=== PATIENT | male | born 1960 | race Caucasian/White ===

== ENCOUNTER → 2018-03-10 09:54 | Outpatient (CLI) | payer MEDICARE, MEDICAID, SELFPAY ==
--- NOTE | 2018-03-10 09:57 | XR_ITS ---
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 Chronic dysplastic erosive changes MRI loss are seen at the superior base of right humeral head due to this process The Y view nicely demonstrates the anterior displacement of the humeral head relative to the glenoid as well. Likely been some erosive changes at the anterior glenoid based on this lateral view. Mild residual deformity distal clavicle from previous 2012 fracture here. AC joint intact apex right lung clear. Suspect old healed bilateral right second rib fracture. Equivocal old lateral third rib fracture just inferior to this. IMPRESSION: . Chronic anterior dislocation of humeral head. Stable since 02/19/2018 Associated deformity humeral head, with chronic dysplastic, erosive changes at the superior base of humeral head, & greater tuberosity region again seen.
== END ==
PROVIDERS: PCP Family Medicine; Visit Provider Orthopaedic Surgery
DX: M24.411 Recurrent dislocation, right shoulder (principal)
CPT/HCPCS: 73030

== ENCOUNTER 2018-09-21 11:55 | Inpatient (IN) ==
--- NOTE | 2018-09-21 12:17 | Emergency Department Note ---
ED Disposition Clinical Impression: Hypotension, Fever Disposition: Admitted as Observation Condition on Discharge: Good - Critical Care Critical Care Time: Yes Attestation: On 09/21/18, the high probability of a clinically significant, sudden or life threatening deterioration of the following system(s) required my full and direct attention, intervention and personal management. The time I documented below is in addition to time spent performing reported procedures but includes the following listed in this critical care notation. Total Critical Care Time: 40 Vital system(s) involved:: Circulatory Failure My critical care processes included: Assessment & monitoring of V/S, Initial and Re-exams, Data Review/Interpretation, Coordinating Care, Medication Orders and management, Documentation Medical Decision Making - Mario Inquiry Pt receiving controlled substance: No Vital Signs: 09/21/18 12:10 09/21/18 12:19 09/21/18 13:51 Temperature 99.0 F 99.0 F 98.5 F Temperature Source Oral Oral Oral Pulse Rate Pulse Rate [Right Apical] 80 77 79 Respiratory Rate 18 15 18 Blood Pressure Blood Pressure [Left Arm] 81/47 L 87/57 L 102/55 L Blood Pressure Mean [Left Arm] 58 67 70 Blood Pressure Source Blood Pressure Source [Left Arm] Automatic Cuff Automatic Cuff Automatic Cuff Blood Pressure Position Blood Pressure Position [Left Arm] Supine Supine Sitting 02 Sat by Pulse Oximetry 98 96 Oxygen Delivery Method Nasal Cannula Nasal Cannula Nasal Cannula Oxygen Flow Rate (LPM) 2 2 2 09/21/18 14:45 09/21/18 15:39 09/21/18 16:00 Temperature 99.3 F Temperature Source Rectal Pulse Rate Pulse Rate [Right Apical] 81 85 Respiratory Rate Blood Pressure Blood Pressure [Left Arm] 95/37 L 120/63 Blood Pressure Mean [Left Arm] 56 82 Blood Pressure Source Blood Pressure Source [Left Arm] Automatic Cuff Automatic Cuff Blood Pressure Position Blood Pressure Position [Left Arm] Sitting Sitting 02 Sat by Pulse Oximetry 91 L 96 Oxygen Delivery Method Oxygen Flow Rate (LPM) 09/21/18 17:38 09/21/18 17:54 Temperature 99.0 F Temperature Source Oral Pulse Rate 60 Pulse Rate [Right Apical] 100 H Respiratory Rate 20 Blood Pressure 120/66 Blood Pressure [Left Arm] 104/74 L Blood Pressure Mean [Left Arm] 84 Blood Pressure Source Automatic Cuff Blood Pressure Source [Left Arm] Blood Pressure Position Supine Blood Pressure Position [Left Arm] 02 Sat by Pulse Oximetry 97 Oxygen Delivery Method Room Air Oxygen Flow Rate (LPM) - Lab Data Lab Results 09/21/18 12:08: WBC 3.8 L, RBC 3.79 L, Hgb 9.8 L, Hct 31.0 L, MCV 81.9, MCH 26.0 L, MCHC 31.7 L, RDW 15.8, Plt Count 209, MPV 7.9, Neut % (Auto) 55.3, Lymph % (Auto) 25.4, [place] % (Auto) 17.3 H, Eos % (Auto) 1.4, Baso % (Auto) 0.7, Neut # (Auto) 2.1, Lymph # (Auto) 1.0, [place] # (Auto) 0.7, Eos # (Auto) 0.1, Baso # (Auto) 0.0 09/21/18 12:08: Sodium 141, Potassium 4.0, Chloride 103, Carbon Dioxide 31, Anion Gap 11.0, BUN 15, Creatinine 1.54 H, Estimated Creat Clear 87, Estimated GFR 47 L, Est GFR ( Amer) 57 L, Glucose 96, Calcium 8.4 L, Total Bilirubin 0.2, AST 29, ALT 19, Alkaline Phosphatase 82, Troponin I < 0.02, Total Protein 6.6, Albumin 2.1 L, Globulin 4.5 H, Albumin/Globulin Ratio 0.5 L 09/21/18 12:08: Lactate 1.9 09/21/18 12:08: B-Natriuretic Peptide 117 H 09/21/18 15:20: Stool Occult Blood Negative 09/21/18 15:39: Urine Color Yellow, Urine Appearance Clear, Urine pH 5.5, Ur Specific [place] 1.025, Urine Protein Negative, Urine Glucose (UA) Negative, Urine Ketones Negative, Urine Blood Negative, Urine Nitrate Negative, Urine Bilirubin Negative, Urine Urobilinogen 0.2, Ur Leukocyte Esterase Negative, Urine RBC None, Urine WBC Occasional, Ur Squamous Epith Cells Occasional, Urine Bacteria Trace 09/21/18 16:11: Influenza Type A Ag Negative, Influenza Type B Ag Negative Result diagrams: 09/21/18 12:08 09/21/18 12:08 Orders (Tests/Meds): ED MEDICATIONS Generic Name Dose Route Start Last Admin Trade Name Freq PRN Reason Stop Dose Admin Acetaminophen 650 mg 09/21/18 17:33 Acetaminophen 325mg Tab PO 10/21/18 17:32 Q4HP PRN As Needed for Fever or Pain Fenofibrate 134 mg 09/21/18 21:00 Tricor 134mg PO 10/21/18 20:59 HS JEMMA Sodium Chloride 1,000 mls @ 125 mls/hr 09/21/18 17:33 09/21/18 19:40 Sod Chlor 0.9% 1000ml Bag IV 10/21/18 17:32 125 mls/hr .Q8H JEMMA Administration Insulin Human Lispro 0 unit 09/21/18 21:00 Humalog 100 Units/Ml 3ml Vial (Ssi) SQ 10/21/18 20:59 ACHS JEMMA Protocol Non-Formulary Medication 40 mg 09/21/18 21:00 Lovastatin [Lovastatin] PO 10/21/18 20:59 HS JEMMA Non-Formulary Medication 30 mg 09/22/18 09:00 Paroxetine Hcl [Paroxetine Hcl] PO 10/22/18 08:59 DAILY JEMMA Non-Formulary Medication 2 mg 09/21/18 21:00 Risperidone [Risperidone] PO 10/21/18 20:59 BID JEMMA Sodium Chloride 10 ml 09/21/18 17:33 Saline Flush 10ml Syringe IV 10/21/18 17:32 NEEDED PRN Maintain IV Site Discontinued Medications Generic Name Dose Route Start Last Admin Trade Name Freq PRN Reason Stop Dose Admin Albuterol/Ipratropium 3 ml 09/21/18 12:23 09/21/18 12:35 Duoneb 3ml Neb IH 09/21/18 12:24 3 ml ONCE ONE Administration Sodium Chloride 1,000 mls @ 999 mls/hr 09/21/18 12:30 09/21/18 12:35 Sod Chlor 0.9% 1000ml Bag IV 09/21/18 13:30 999 mls/hr .Q1H1M JEMMA Administration Methylprednisolone Sodium Succinate 125 mg 09/21/18 12:24 09/21/18 12:35 Solu-Medrol 125mg/2ml Vial IV 09/21/18 12:25 125 mg ONCE ONE Administration ORDERS Category Date Time Status Blood Culture Stat Micro 09/21/18 12:08 Received - ECG Data Tracing #2 EKG interpreted by Rod Hoffmann MD: Rhythm: sinus Rate: 99 [place]: Left Severe motion artifact in leads V4, V5, and V6, these leads are uninterpretable. EKG #2 interpreted by Rod Hoffmann MD: Rhythm: sinus Rate: 82 [place]: Left Ectopy: none Conduction: normal ST Segment Changes: none T Wave Changes: none Q Waves: Inferior Poor R wave progression Low voltage QRS - Physician Consults Physician Consulted: Alba Time: 16:58 Reason -: Admission Comment/Response: Agrees to admit the patient to the hospital. We discussed the patient's clinical information, including history, exam, laboratory and radiology results and ED course. Per hospital procedure, I will write temporary bridge inpatient orders on the patient. Specific orders requested by the admitting physician: Continue IV fluids, repeat chest x-ray in the morning. No antibiotics. General Adult HPI - General Chief complaint: Altered Mental Status Stated complaint: altered mental status Time Seen by Provider: 09/21/18 12:16 Mode of Arrival: EMS Limitations: Altered Mental Status Description of Symptoms (Recalled from ER Triage Doc. by RN): PT arrived to the ED from senior care with c/o altered mental status changes and SOA. PT has a hx of developmental delays but this is worse than baseline as stated by senior living RN. - History of Present Illness HPI narrative: Brought in by ambulance from the senior care for change in behavior and "possible infection". Patient is unable to provide any significant additional history due to his baseline mental condition. States he has back pain, no other complaints voiced. Blood pressure noted to be 82/55 prior to transfer. Temperature 101.9 axillary. Review of senior care records indicates that the patient recently had UTI, E. coli, treated on 09/02/18, Cipro for 10 days. Had a hemoglobin of 8.7, noted to be chronic stable anemia. - Related Data Home Medications Medication Instructions Recorded Confirmed Acetaminophen [Acetaminophen Extra 1,000 mg PO QID 02/19/18 09/21/18 Strength] Carvedilol [Carvedilol 12.5mg Tab] 12.5 mg PO DAILY 02/19/18 09/21/18 Fenofibrate,Micronized [Tricor 134 mg PO HS 02/19/18 09/21/18 145mg] Furosemide [Furosemide 40MG tAB] 40 mg PO DAILY 02/19/18 09/21/18 L.acidoph,Paracasei, B.lactis 1 each PO DAILY 02/19/18 09/21/18 [Probiotic] Lactulose [Lactulose 10gm/15ml 10 gm PO DAILY PRN 02/19/18 09/21/18 Oral Soln] Lisinopril [Lisinopril 5mg Tablet] 5 mg PO DAILY 02/19/18 09/21/18 Loratadine [Claritin] 10 mg PO DAILY 02/19/18 09/21/18 Lovastatin 40 mg PO HS 02/19/18 09/21/18 Metformin HCl [Fortamet] 1,000 mg PO BID 02/19/18 09/21/18 Methylcellulose [Fiber] 500 mg PO DAILY 02/19/18 09/21/18 Multivitamin with Minerals [Hair, 1 each PO DAILY 02/19/18 09/21/18 Skin and Nails] [place]-3 Fatty Acids [Fish Oil 1,000 mg PO DAILY 02/19/18 09/21/18 Concentrate] PARoxetine HCl [Paroxetine HCl] 30 mg PO DAILY 02/19/18 09/21/18 Pioglitazone HCl 15 mg PO DAILY 02/19/18 09/21/18 Potassium Chloride [Klor-Con 10 meq PO DAILY 02/19/18 09/21/18 Sprinkle 10mEq] risperiDONE [Risperidone] 2 mg PO BID 02/19/18 09/21/18 Allergies Allergy/AdvReac Type Severity Reaction Status Date / Time NO KNOWN DRUG ALLERGIES Allergy Unknown Uncoded 03/10/18 10:10 [facility] History - Hepatitis A Screen Drug use history?: No High risk sexual behaviors?: No History of sexually transmitted infection?: No Currently employed?: No Childcare worker?: No Do you have indoor plumbing?: Yes Do you have electricity?: Yes Attestation statement:: This patient has been screened for Hepatitis A risk factors. I have reviewed the patient's past medical history: Yes Medical History: Reports:: Diabetes Mellitus Type 2 Denies:: Diabetes Mellitus Type 1 - Social History Smoking Status: Unknown if ever smoked Tobacco Type: cigars Alcohol Intake: never Occupational Status: disabled - Psychiatric History Expresses thoughts of harming self/others: None Suicide Plan Description: No Plan ROS Obtained: Yes unobtainable due to mental condition Physical Exam - General General appearance: alert Comment: Eyes open, staring down at the floor. Does not change his gaze when spoken to. Frequent cough. - Head Head exam: atraumatic - Eye Eye exam: Present: normal appearance, PERRL, EOMI. Absent: scleral icterus - ENT ENT exam: Present: mucous membranes moist - Neck Neck exam: Present: normal inspection, trachea midline - Chest Chest inspection: Present: normal inspection, symmetric chest wall rise - Respiratory Respiratory exam: Present: wheezes, other (Bilateral rhonchi) - Cardiovascular Cardiovascular exam: Present: regular rate, normal rhythm, normal heart sounds - Abdominal Exam Abdominal exam: Present: soft. Absent: distention, tenderness - Extremities Exam Extremities exam: Present: normal inspection. Absent: pedal edema, calf tenderness - Neurological Exam Neurological exam: Present: alert - Psychiatric Psychiatric exam: Present: flat affect - Skin Skin exam: Present: warm, dry, pallor
[2018-09-21 12:52] LABS: Basophils % 0.7 % (0.1-2.0); Eosinophils # 0.1 K/mm3 (0.0-0.4); Eosinophils % 1.4 % (0.1-12.0); Hemoglobin 9.8 g/dL (14.1-18.0); Lymphocytes % 25.4 % (10-50); Mean Corpuscular HGB Conc 31.7 g/dL (31.8-35.4); Mean Corpuscular Volume 81.9 fl (80-94); Mean Platelet Volume 7.9 fl (7.4-10.4); Monocytes # 0.7 K/mm3 (0.1-1.0); Monocytes % 17.3 % (1.7-9.3); Neutrophils # 2.1 K/mm3 (1.8-7.8); Neutrophils % 55.3 % (37.0-80.0); Platelet Count 209 K/mm3 (142-424); Red Blood Count 3.79 M/mm3 (4.60-6.20); Red Cell Distribution Width 15.8 % (11.5-17.5); White Blood Count 3.8 K/mm3 (4.8-10.8)
[2018-09-21 13:07] LABS: Alanine Aminotransferase 19 U/L (12-78); Albumin Level 2.1 gm/dL (3.4-5.0); Albumin/Globulin Ratio 0.5 (1.1-1.8); Alkaline Phosphatase 82 U/L (46-116); Aspartate Amino Transferase 29 U/L (15-37); Bilirubin,Total 0.2 mg/dL (0.2-1.0); Blood Urea Nitrogen 15 mg/dL (7-18); Calcium 8.4 mg/dL (8.5-10.1); Carbon Dioxide 31 mmol/L (21.0-32.0); Chloride 103 mmol/L (98-107); Globulin 4.5 gm/dl (1.3-3.2); Glucose 96 mg/dL (74-106); Sodium 141 mmol/L (136-145); Total Protein,Serum 6.6 gm/dL (6.4-8.2)
[2018-09-21 15:50] LABS: Microscopic, Urine URINE MICROSCOPIC (MICROSCOPIC)
[2018-09-21 15:54] LABS: Appearance,Urine CLEAR (Clear); Bilirubin,Urine Negative (Negative); Blood, Urine Negative (Negative); Color,Urine YELLOW (Yellow); Glucose,Urine (UA) Negative (Negative); Ketones,Urine Negative (Negative); Leukocyte Esterase,Urine Negative (Negative); PH,Urine 5.5 (5.0-8.5); Protein,Urine Negative (Negative); Specific Gravity, Urine 1.025 (1.005-1.030); Urobilinogen,Urine 0.2 EU/dl (0.2)
[2018-09-21 16:23] LABS: Bacteria,Urine Trace /lpf; Squamous Epithelial Cell,Urine Occasional #/hpf (0-5); WBC,Urine Occasional #/hpf (0-3)
--- NOTE | 2018-09-22 07:35 | Pharmacy Consult Notes ---
[facility] Pharmacy VTE Monitoring - Patient Demographics Admission date: 09/21/18 Report Date: 09/22/18 Time: 07:35 Allergies/Adverse Reactions: Patient Allergies NO KNOWN DRUG ALLERGIES Allergy (Unknown, Uncoded 03/10/18 10:10) Height: 1.83 m Weight: 104.893 kg Patient Problems: Current Active Problems Hypotension (Acute) Fever (Acute) - VTE Risk Labs: VTE Related Lab Results Hgb 9.8 g/dL (14.1-18.0) L 09/21/18 12:08 Hct 31.0 % (42.0-52.0) L 09/21/18 12:08 Plt Count 209 K/mm3 (142-424) 09/21/18 12:08 BUN 15 mg/dL (7-18) 09/21/18 12:08 Creatinine 1.54 mg/dL (0.70-1.30) H 09/21/18 12:08 Estimated Creat Clear 87 mL/min (50-200) 09/21/18 12:08 Was VTE Risk Assessment Performed: Yes VTE Score: 3 VTE Risk Level: Low Risk - Prophylaxis VTE Prophylaxis Ordered?: Yes Types of VTE Prophylaxis: TEDS Knee High Location of Applied Device: Bilateral Lower Extremeties - VTE Diagnosis Confirmed Treatment or plan recommended: Continue Current Treatment
[2018-09-22 07:50] LABS: Basophils % 0.2 % (0.1-2.0); Eosinophils % 0.1 % (0.1-12.0); Hematocrit 30.6 % (42.0-52.0); Hemoglobin 9.7 g/dL (14.1-18.0); Lymphocytes # 1.1 K/mm3 (0.7-4.5); Lymphocytes % 21.2 % (10-50); Mean Corpuscular HGB Conc 31.5 g/dL (31.8-35.4); Mean Corpuscular Hemoglobin 25.7 pg (27.0-31.2); Mean Corpuscular Volume 81.4 fl (80-94); Mean Platelet Volume 7.7 fl (7.4-10.4); Monocytes # 0.5 K/mm3 (0.1-1.0); Monocytes % 9.9 % (1.7-9.3); Neutrophils # 3.6 K/mm3 (1.8-7.8); Neutrophils % 68.6 % (37.0-80.0); Platelet Count 226 K/mm3 (142-424); Red Blood Count 3.76 M/mm3 (4.60-6.20); Red Cell Distribution Width 15.9 % (11.5-17.5); White Blood Count 5.2 K/mm3 (4.8-10.8)
--- NOTE | 2018-09-22 09:20 | History & Physical Report ---
*Admission Date: 09/21/18 <Anitra Jones 09/22/18 09:41> *Chief complaint: fever <Anitra Jones 09/22/18 09:41> *History of present illness: Mr. Umana is a 57-year-old white male resident [facility] he was sent to [facility] emergency room for evaluation due to a fever and behaviors. Patient has a history of developmental disorder, type 2 diabetes mellitus, hyperlipidemia, major depression disorder, hypertension, convulsions, schizophrenic disorder and anxiety disorder. Patient was also noted to have a low blood pressure at 82/55 in the prison. With arrival in the emergency room patient's blood pressure remained low he was given IV fluids. And then admitted for further evaluation and treatment. With evaluation this morning patient states he has had a cough and been short of breath. He denies pain. Patient mostly answers questions with yes and no. <Anitra Jones 09/22/18 09:41> [facility] History Medical History: Reports:: Diabetes Mellitus Type 2, Hyperlipidemia, Hypertension Denies:: Diabetes Mellitus Type 1 <Anitra Jones 09/22/18 09:41> *Have you ever received a pneumonia vaccine?: Yes <Anitra Jones 09/22/18 09:41> *Have you received a flu vaccine this season?: Yes <Anitra Jones 09/22/18 09:41> Other Medical History: Reports: Anemia <Anitra Jones 09/22/18 09:41> Other Surgeries: Yes: No Previous Surgery <Anitra Jones 09/22/18 09:41> - *Social History Smoking Status: Unknown if ever smoked <Anitra Jones 09/22/18 09:41> Tobacco Type: cigars <Anitra Jones 09/22/18 09:41> Alcohol Intake: never <Anitra Jones 09/22/18 09:41> *Occupational Status:: disabled <Anitra Jones 09/22/18 09:41> Housing: prison <Anitra Jones 09/22/18 09:41> *Travel in the last 8 weeks: None <Anitra Jones 09/22/18 09:41> - Psychiatric History Expresses thoughts of harming self/others: None <Anitra Jones Desirae 09/22/18 0 9:41> Suicide Plan Description: No Plan <Jones,Anitra Desirae 09/22/18 09:41> Family Hx:: Unable to obtain <Jones,Anitra - 09/22/18 09:41> Review of Systems - Constitutional Reports weakness, Denies headache(s) <Jones,Anitra 09/22/18 09:41> - ENT Reports sore throat, Denies ear pain <KarenAnitra 09/22/18 09:41> - *Cardiovascular Reports shortness of breath, Denies chest pain <Jones,Anitra 09/22/18 09:41> - *Respiratory Reports cough, Reports shortness of breath <Jones,Anitra 09/22/18 09:41> - *Gastrointestinal Denies nausea, Denies vomiting <KarenAnitra 09/22/18 09:41> - *Genitourinary Denies difficulty urinating <KarenAnitra 09/22/18 09:41> - *Musculoskeletal Comments: Per patient: Ambulates in a wheelchair. <Jones,Anitra - 09/22/18 09:41> - *Neurologic Reports behavioral changes, Reports confusion <KarenAnitra 09/22/18 09:41> - Psychiatric Reports anxiety, Reports behavioral changes, Reports confusion, Reports depression <KarenAnitra - 09/22/18 09:41> Meds Home Medications Medication Instructions Recorded Confirmed Type Acetaminophen [Acetaminophen Extra 1,000 mg PO QID 02/19/18 09/21/18 History Strength] Carvedilol [Carvedilol 12.5mg Tab] 12.5 mg PO BID 02/19/18 09/21/18 History Fenofibrate,Micronized [Tricor 134 mg PO HS 02/19/18 09/21/18 History 145mg] Furosemide [Furosemide 40MG tAB] 40 mg PO DAILY 02/19/18 09/21/18 History L.acidoph,Paracasei, B.lactis 1 each PO DAILY 02/19/18 09/21/18 History [Probiotic] Lactulose [Lactulose 10gm/15ml 10 gm PO DAILY PRN 02/19/18 09/21/18 History Oral Soln] Lisinopril [Lisinopril 5mg Tablet] 5 mg PO BID 02/19/18 09/21/18 History Loratadine [Claritin] 10 mg PO DAILY 02/19/18 09/21/18 History Lovastatin 40 mg PO HS 02/19/18 09/21/18 History Metformin HCl [Fortamet] 1,000 mg PO BID 02/19/18 09/21/18 History Methylcellulose [Fiber] 500 mg PO DAILY 02/19/18 09/21/18 History Multivitamin with Minerals [Hair, 1 each PO DAILY 02/19/18 09/21/18 History Skin and Nails] [place]-3 Fatty Acids [Fish Oil 1,000 mg PO BID 02/19/18 09/21/18 History Concentrate] PARoxetine HCl [Paroxetine HCl] 30 mg PO DAILY 02/19/18 09/21/18 History Pioglitazone HCl 15 mg PO DAILY 02/19/18 09/21/18 History Potassium Chloride [Klor-Con 10 meq PO DAILY 02/19/18 09/21/18 History Sprinkle 10mEq] risperiDONE [Risperidone] 2 mg PO BID 02/19/18 09/21/18 History Chlorhexidine Gluconate [Peridex] 15 ml MM BID 09/21/18 09/21/18 History Divalproex Sodium [Depakote 125 mg PO TID 09/21/18 09/21/18 History Sprinkle 125mg capsule] cephALEXin [Keflex 500mg Cap] 500 mg PO TID 09/21/18 09/21/18 History diazePAM [Valium 2mg tablet] 2 mg PO BID 09/21/18 09/21/18 History <Chris Willis - 09/22/18 10:34> Allergies Allergy/AdvReac Type Severity Reaction Status Date / Time No Known Allergies Allergy Unverified 09/22/18 08:13 <Chris Willis - 09/22/18 10:34> Exam Vital signs and Labs for Last 24 Hours: Temp Pulse Resp BP Pulse Ox 99.3 F 90 18 150/90 H 96 09/22/18 08:00 09/22/18 08:00 09/22/18 08:00 09/22/18 08:00 09/22/18 08:00 Laboratory Results - last 24 hr 09/21/18 12:08: WBC 3.8 L, RBC 3.79 L, Hgb 9.8 L, Hct 31.0 L, MCV 81.9, MCH 26.0 L, MCHC 31.7 L, RDW 15.8, Plt Count 209, MPV 7.9, Neut % (Auto) 55.3, Lymph % (Auto) 25.4, [place] % (Auto) 17.3 H, Eos % (Auto) 1.4, Baso % (Auto) 0.7, Neut # (Auto) 2.1, Lymph # (Auto) 1.0, [place] # (Auto) 0.7, Eos # (Auto) 0.1, Baso # (Auto) 0.0 09/21/18 12:08: Sodium 141, Potassium 4.0, Chloride 103, Carbon Dioxide 31, Anion Gap 11.0, BUN 15, Creatinine 1.54 H, Estimated Creat Clear 87, Estimated GFR 47 L, Est GFR ( Amer) 57 L, Glucose 96, Calcium 8.4 L, Total Bilirubin 0.2, AST 29, ALT 19, Alkaline Phosphatase 82, Troponin I < 0.02, Total Protein 6.6, Albumin 2.1 L, Globulin 4.5 H, Albumin/Globulin Ratio 0.5 L 09/21/18 12:08: Lactate 1.9 09/21/18 12:08: B-Natriuretic Peptide 117 H 09/21/18 15:20: Stool Occult Blood Negative 09/21/18 15:39: Urine Color Yellow, Urine Appearance Clear, Urine pH 5.5, Ur Specific [place] 1.025, Urine Protein Negative, Urine Glucose (UA) Negative, Urine Ketones Negative, Urine Blood Negative, Urine Nitrate Negative, Urine Bilirubin Negative, Urine Urobilinogen 0.2, Ur Leukocyte Esterase Negative, Urine RBC None, Urine WBC Occasional, Ur Squamous Epith Cells Occasional, Urine Bacteria Trace 09/21/18 16:11: Influenza Type A Ag Negative, Influenza Type B Ag Negative 09/21/18 20:20: POC Glucose 178 H 09/22/18 05:10: POC Glucose 92 09/22/18 07:38: WBC 5.2 D, RBC 3.76 L, Hgb 9.7 L, Hct 30.6 L, MCV 81.4, MCH 25.7 L, MCHC 31.5 L, RDW 15.9, Plt Count 226, MPV 7.7, Neut % (Auto) 68.6, Lymph % (Auto) 21.2, [place] % (Auto) 9.9 H, Eos % (Auto) 0.1, Baso % (Auto) 0.2, Neut # (Auto) 3.6, Lymph # (Auto) 1.1, [place] # (Auto) 0.5, Eos # (Auto) 0.0, Baso # (Auto) 0.0 <Chris Willis - 09/22/18 10:34> Temp Pulse Resp BP Pulse Ox 99.3 F 90 18 150/90 H 96 09/22/18 08:00 09/22/18 08:00 09/22/18 08:00 09/22/18 08:00 09/22/18 08:00 Laboratory Results - last 24 hr 09/21/18 12:08: WBC 3.8 L, RBC 3.79 L, Hgb 9.8 L, Hct 31.0 L, MCV 81.9, MCH 26.0 L, MCHC 31.7 L, RDW 15.8, Plt Count 209, MPV 7.9, Neut % (Auto) 55.3, Lymph % (Auto) 25.4, [place] % (Auto) 17.3 H, Eos % (Auto) 1.4, Baso % (Auto) 0.7, Neut # (Auto) 2.1, Lymph # (Auto) 1.0, [place] # (Auto) 0.7, Eos # (Auto) 0.1, Baso # (Auto) 0.0 09/21/18 12:08: Sodium 141, Potassium 4.0, Chloride 103, Carbon Dioxide 31, Anion Gap 11.0, BUN 15, Creatinine 1.54 H, Estimated Creat Clear 87, Estimated GFR 47 L, Est GFR ( Amer) 57 L, Glucose 96, Calcium 8.4 L, Total Bilirubin 0.2, AST 29, ALT 19, Alkaline Phosphatase 82, Troponin I < 0.02, Total Protein 6.6, Albumin 2.1 L, Globulin 4.5 H, Albumin/Globulin Ratio 0.5 L 09/21/18 12:08: Lactate 1.9 09/21/18 12:08: B-Natriuretic Peptide 117 H 09/21/18 15:20: Stool Occult Blood Negative 09/21/18 15:39: Urine Color Yellow, Urine Appearance Clear, Urine pH 5.5, Ur Specific [place] 1.025, Urine Protein Negative, Urine Glucose (UA) Negative, Urine Ketones Negative, Urine Blood Negative, Urine Nitrate Negative, Urine Bilirubin Negative, Urine Urobilinogen 0.2, Ur Leukocyte Esterase Negative, Urine RBC None, Urine WBC Occasional, Ur Squamous Epith Cells Occasional, Urine Bacteria Trace 09/21/18 16:11: Influenza Type A Ag Negative, Influenza Type B Ag Negative 09/21/18 20:20: POC Glucose 178 H 09/22/18 05:10: POC Glucose 92 09/22/18 07:38: WBC 5.2 D, RBC 3.76 L, Hgb 9.7 L, Hct 30.6 L, MCV 81.4, MCH 25.7 L, MCHC 31.5 L, RDW 15.9, Plt Count 226, MPV 7.7, Neut % (Auto) 68.6, Lymph % (Auto) 21.2, [place] % (Auto) 9.9 H, Eos % (Auto) 0.1, Baso % (Auto) 0.2, Neut # (Auto) 3.6, Lymph # (Auto) 1.1, [place] # (Auto) 0.5, Eos # (Auto) 0.0, Baso # (Auto) 0.0 <Anitra Jones - 09/22/18 09:41> I & O for Last 24 hours: Intake & Output 09/19/18 09/20/18 09/21/18 09/22/18 11:59 11:59 11:59 11:59 Intake Total 2159 Balance 2159 Weight 231 lb 4 oz <Chris Willis - 09/22/18 10:34> Intake & Output 09/19/18 09/20/18 09/21/18 09/22/18 11:59 11:59 11:59 11:59 Intake Total 1919 Balance 1919 Weight 231 lb 4 oz <Anitra Jones - 09/22/18 09:41> Radiology Reports for the Last 24 Hours: Chest x-ray 09/22/2018 IMPRESSION: Atelectasis or infiltrate in the right lung base medially <Anitra Jones 09/22/18 09:41> - Constitutional no acute distress <Anitra Jones 09/22/18 09:41> Comments: Sitting up in the bed and has completed his breakfast. <Anitra Jones 09/22/18 09:41> - *Routine HEENT Exam Head: Present: normocephalic, atraumatic <Anitra Jones 09/22/18 09:41> Eye: Present: PERRL. Absent: conjunctival icterus, scleral injection <Anitra Jones 09/22/18 09:41> ENT: Present: mucous membranes moist, oropharynx clear <Anitra Jones 09/22/18 09:41> - *Routine Respiratory Exam Comments: Poor inspiratory effort. Sounds clear to auscultation bilaterally A&P. Congested cough <Anitra Jones 09/22/18 09:41> - *Routine Cardiovascular Exam Present: RRR <Anitra Jones 09/22/18 09:41> - *Routine Abdominal Exam Present: soft, normoactive bowel sounds. Absent: tenderness, distended <Anitra Jones 09/22/18 09:41> - *Routine Extremities Exam Absent: edema, calf tenderness <Anitra Jones 09/22/18 09:41> Comments: Has TIFFANY hose on bilateral lower extremities <Anitra Jones 09/22/18 09:41> - *Routine Neurological Exam Present: alert <Anitra Jones 09/22/18 09:41> Answers all questions appropriately. Mostly with yes and no answers <Anitra Jones 09/22/18 09:41> Assessment and Plan (1) Pneumonia Current visit: Yes Status: Acute Category: Medical Code(s): J18.9 - Pneumonia, unspecified organism (2) Renal insufficiency Current visit: Yes Status: Acute Category: Medical Code(s): N28.9 - Disorder of kidney and ureter, unspecified (3) Type 2 diabetes mellitus Current visit: Yes Status: Chronic Category: Medical Code(s): E11.9 - Type 2 diabetes mellitus without complications (4) Generalized anxiety disorder Current visit: Yes Status: Chronic Category: Medical Code(s): F41.1 - Generalized anxiety disorder (5) Developmental disorder Current visit: Yes Status: Chronic Category: Medical Code(s): F89 - Unspecified disorder of psychological development (6) Hypertension Current visit: Yes Status: Chronic Category: Medical Code(s): I10 - Essential (primary) hypertension (7) Major depressive disorder Current visit: Yes Status: Chronic Category: Medical Code(s): F32.9 - Major depressive disorder, single episode, unspecified (8) Schizophrenic disorder Current visit: Yes Status: Chronic Category: Medical Code(s): F20.9 - Schizophrenia, unspecified (9) Anemia Current visit: Yes Status: Chronic Category: Medical Code(s): D64.9 - Anemia, unspecified <AlbaChris James - 09/22/18 10:34> (1) Pneumonia Current visit: Yes Status: Acute Category: Medical Code(s): J18.9 - Pneumonia, unspecified organism (2) Renal insufficiency Current visit: Yes Status: Acute Category: Medical Code(s): N28.9 - Disorder of kidney and ureter, unspecified (3) Type 2 diabetes mellitus Current visit: Yes Status: Chronic Category: Medical Code(s): E11.9 - Type 2 diabetes mellitus without complications (4) Generalized anxiety disorder Current visit: Yes Status: Chronic Category: Medical Code(s): F41.1 - Generalized anxiety disorder (5) Developmental disorder Current visit: Yes Status: Chronic Category: Medical Code(s): F89 - Unspecified disorder of psychological development (6) Hypertension Current visit: Yes Status: Chronic Category: Medical Code(s): I10 - Essential (primary) hypertension (7) Major depressive disorder Current visit: Yes Status: Chronic Category: Medical Code(s): F32.9 - Major depressive disorder, single episode, unspecified (8) Schizophrenic disorder Current visit: Yes Status: Chronic Category: Medical Code(s): F20.9 - Schizophrenia, unspecified (9) Anemia Current visit: Yes Status: Chronic Category: Medical Code(s): D64.9 - Anemia, unspecified <Anitra Jones - 09/22/18 09:16> - Assessment and plan all Dx Assessment and Plan for all problems:: Patient is seen and evaluated this morning. ER records reviewed. On workup in the ER last evening, there was no obvious source of infection to account for the fever that was documented at the prison. He was hypotensive and responded appropriately to IV fluids in the ER. Because of his hypotension he was admitted for further observation and continued IV fluid hydration. As suspected, after hydration overnight, a repeat chest x-ray this morning is now showing an infiltrate. He will be started on pneumonia protocol for healthcare acquired pneumonia. <Chris Willis - 09/22/18 10:34> Will follow pneumonia protocol and restart home meds. <Anitra Jones - 09/22/18 09:41>
[2018-09-23 07:18] LABS: Basophils % 0.5 % (0.1-2.0); Eosinophils # 0.1 K/mm3 (0.0-0.4); Eosinophils % 1.6 % (0.1-12.0); Hematocrit 30.2 % (42.0-52.0); Hemoglobin 9.4 g/dL (14.1-18.0); Lymphocytes # 0.6 K/mm3 (0.7-4.5); Lymphocytes % 14.7 % (10-50); Mean Corpuscular Hemoglobin 25.8 pg (27.0-31.2); Mean Corpuscular Volume 83.2 fl (80-94); Mean Platelet Volume 7.6 fl (7.4-10.4); Monocytes # 0.4 K/mm3 (0.1-1.0); Monocytes % 9.3 % (1.7-9.3); Neutrophils % 73.8 % (37.0-80.0); Platelet Count 181 K/mm3 (142-424); Red Blood Count 3.63 M/mm3 (4.60-6.20); Red Cell Distribution Width 15.8 % (11.5-17.5); White Blood Count 4.1 K/mm3 (4.8-10.8)
[2018-09-23 07:25] LABS: Anion Gap 9.5 mEq/L (5-15); Calcium 7.9 mg/dL (8.5-10.1); Potassium 3.5 mmoL/L (3.5-5.1)
--- NOTE | 2018-09-23 08:09 | Progress Note ---
<Carla Sheikh - Last Filed: 09/23/18 08:06> Internal Medicine - PN: Subj *Date: 09/23/18 *Time: 08:06 Interval history: Patient denies any pain other than in his throat today. He states he is very thirsty and according to nursing staff he has been drinking all day and all night. He states he did sleep off and on throughout the night. Exam Vital signs and Labs for Last 24 Hours: Temp Pulse Resp BP Pulse Ox 98.7 F 95 H 18 158/97 H 95 09/23/18 08:00 09/23/18 08:00 09/23/18 08:00 09/23/18 08:00 09/23/18 08:00 Laboratory Results - last 24 hr 09/22/18 11:43: POC Glucose 146 H 09/22/18 16:44: POC Glucose 102 09/22/18 20:59: POC Glucose 109 09/23/18 06:33: POC Glucose 82 09/23/18 06:54: WBC 4.1 L, RBC 3.63 L, Hgb 9.4 L, Hct 30.2 L, MCV 83.2, MCH 25.8 L, MCHC 31.0 L, RDW 15.8, Plt Count 181, MPV 7.6, Neut % (Auto) 73.8, Lymph % (Auto) 14.7, [place] % (Auto) 9.3, Eos % (Auto) 1.6, Baso % (Auto) 0.5, Neut # (Auto) 3.0, Lymph # (Auto) 0.6 L, [place] # (Auto) 0.4, Eos # (Auto) 0.1, Baso # (Auto) 0.0 09/23/18 06:54: Sodium 142, Potassium 3.5, Chloride 108 H, Carbon Dioxide 28, Anion Gap 9.5, BUN 9 D, Creatinine 0.81 D, Estimated Creat Clear 159, Estimated GFR 99, Est GFR ( Amer) 120 D, Glucose 88, Calcium 7.9 L I & O for Last 24 hours: Intake & Output 09/20/18 09/21/18 09/22/18 09/23/18 11:59 11:59 11:59 11:59 Intake Total 2520 / 2520 6362 / 6362 Balance 2520 / 2520 6362 / 6362 Weight 231 lb 4 oz 241 lb - Constitutional no acute distress - *Routine Respiratory Exam Present: CTA bilaterally, diminished air movement Comments: congested cough - *Routine Cardiovascular Exam Present: RRR - *Routine Abdominal Exam Present: soft, normoactive bowel sounds. Absent: tenderness - *Routine Extremities Exam Present: edema (trace bilateral LE's) Assessment and Plan (1) Pneumonia Current visit: Yes Status: Acute Category: Medical Code(s): J18.9 - Pneumonia, unspecified organism (2) Renal insufficiency Current visit: Yes Status: Acute Category: Medical Code(s): N28.9 - Disorder of kidney and ureter, unspecified (3) Type 2 diabetes mellitus Current visit: Yes Status: Chronic Category: Medical Code(s): E11.9 - Type 2 diabetes mellitus without complications (4) Generalized anxiety disorder Current visit: Yes Status: Chronic Category: Medical Code(s): F41.1 - Generalized anxiety disorder (5) Developmental disorder Current visit: Yes Status: Chronic Category: Medical Code(s): F89 - Unspecified disorder of psychological development (6) Hypertension Current visit: Yes Status: Chronic Category: Medical Code(s): I10 - Essential (primary) hypertension (7) Major depressive disorder Current visit: Yes Status: Chronic Category: Medical Code(s): F32.9 - Major depressive disorder, single episode, unspecified (8) Schizophrenic disorder Current visit: Yes Status: Chronic Category: Medical Code(s): F20.9 - Schizophrenia, unspecified (9) Anemia Current visit: Yes Status: Chronic Category: Medical Code(s): D64.9 - Anemia, unspecified - Assessment and plan all Dx Assessment and Plan for all problems:: Will continue treatment for pneumonia. Will discuss further care with Dr. Willis. <Chris Willis - Last Filed: 09/23/18 14:21> Exam Vital signs and Labs for Last 24 Hours: Temp Pulse Resp BP Pulse Ox 98.7 F 95 H 18 158/97 H 95 09/23/18 08:00 09/23/18 08:00 09/23/18 08:00 09/23/18 08:00 09/23/18 08:00 Laboratory Results - last 24 hr 09/22/18 16:44: POC Glucose 102 09/22/18 20:59: POC Glucose 109 09/23/18 06:33: POC Glucose 82 09/23/18 06:54: WBC 4.1 L, RBC 3.63 L, Hgb 9.4 L, Hct 30.2 L, MCV 83.2, MCH 25.8 L, MCHC 31.0 L, RDW 15.8, Plt Count 181, MPV 7.6, Neut % (Auto) 73.8, Lymph % (Auto) 14.7, [place] % (Auto) 9.3, Eos % (Auto) 1.6, Baso % (Auto) 0.5, Neut # (Auto) 3.0, Lymph # (Auto) 0.6 L, [place] # (Auto) 0.4, Eos # (Auto) 0.1, Baso # (Auto) 0.0 09/23/18 06:54: Sodium 142, Potassium 3.5, Chloride 108 H, Carbon Dioxide 28, Anion Gap 9.5, BUN 9 D, Creatinine 0.81 D, Estimated Creat Clear 159, Estimated GFR 99, Est GFR ( Amer) 120 D, Glucose 88, Calcium 7.9 L 09/23/18 10:57: POC Glucose 100 I & O for Last 24 hours: Intake & Output 09/21/18 09/22/18 09/23/18 09/24/18 11:59 11:59 11:59 11:59 Intake Total 2670 / 2670 6482 / 6482 Balance 2670 / 2670 6482 / 6482 Weight 231 lb 4 oz 241 lb Microbiology Reports for the Last 24 Hours: Microbiology 09/21/18 12:08 Blood Blood Culture - Preliminary NO GROWTH AFTER 48 HOURS 09/21/18 12:08 Blood Blood Culture - Preliminary NO GROWTH AFTER 48 HOURS Assessment and Plan (1) Pneumonia Current visit: Yes Status: Acute Category: Medical Code(s): J18.9 - Pneumonia, unspecified organism (2) Renal insufficiency Current visit: Yes Status: Acute Category: Medical Code(s): N28.9 - Disorder of kidney and ureter, unspecified (3) Type 2 diabetes mellitus Current visit: Yes Status: Chronic Category: Medical Code(s): E11.9 - Type 2 diabetes mellitus without complications (4) Generalized anxiety disorder Current visit: Yes Status: Chronic Category: Medical Code(s): F41.1 - Generalized anxiety disorder (5) Developmental disorder Current visit: Yes Status: Chronic Category: Medical Code(s): F89 - Unspecified disorder of psychological development (6) Hypertension Current visit: Yes Status: Chronic Category: Medical Code(s): I10 - Essential (primary) hypertension (7) Major depressive disorder Current visit: Yes Status: Chronic Category: Medical Code(s): F32.9 - Major depressive disorder, single episode, unspecified (8) Schizophrenic disorder Current visit: Yes Status: Chronic Category: Medical Code(s): F20.9 - Schizophrenia, unspecified (9) Anemia Current visit: Yes Status: Chronic Category: Medical Code(s): D64.9 - Anemia, unspecified - Assessment and plan all Dx Assessment and Plan for all problems:: Patient seen and examined. Concur with above. Appears stable. Has not been able to produce sputum sample. Continue current treatment.
--- NOTE | 2018-09-24 08:12 | Progress Note ---
<Carla Sheikh - Last Filed: 09/24/18 08:10> Internal Medicine - PN: Subj *Date: 09/24/18 *Time: 08:10 Interval history: Patient denies any pain other than in his throat. He states he slept well last night. He says he ate breakfast, however his tray reveals that he has been drinking but ate very little. Exam Vital signs and Labs for Last 24 Hours: Temp Pulse Resp BP Pulse Ox 99.5 F 82 18 120/81 92 L 09/24/18 08:00 09/24/18 08:00 09/24/18 08:00 09/24/18 08:00 09/24/18 08:00 Laboratory Results - last 24 hr 09/23/18 10:57: POC Glucose 100 09/23/18 16:17: POC Glucose 94 09/23/18 20:08: POC Glucose 105 09/24/18 06:28: POC Glucose 89 I & O for Last 24 hours: Intake & Output 09/21/18 09/22/18 09/23/18 09/24/18 11:59 11:59 11:59 11:59 Intake Total 2670 / 2670 6482 / 6482 3377 / 3377 Output Total 350 / 350 Balance 2670 / 2670 6482 / 6482 3027 / 3027 Weight 231 lb 4 oz 241 lb Microbiology Reports for the Last 24 Hours: Microbiology 09/21/18 12:08 Blood Blood Culture - Preliminary NO GROWTH AFTER 48 HOURS 09/21/18 12:08 Blood Blood Culture - Preliminary NO GROWTH AFTER 48 HOURS - Constitutional no acute distress - *Routine Respiratory Exam Present: decreased breath sounds - *Routine Cardiovascular Exam Present: RRR - *Routine Abdominal Exam Present: soft, normoactive bowel sounds. Absent: tenderness - *Routine Extremities Exam Present: edema. Absent: cyanosis, clubbing Assessment and Plan (1) Pneumonia Current visit: Yes Status: Acute Category: Medical Code(s): J18.9 - Pneumonia, unspecified organism (2) Renal insufficiency Current visit: Yes Status: Acute Category: Medical Code(s): N28.9 - Disorder of kidney and ureter, unspecified (3) Type 2 diabetes mellitus Current visit: Yes Status: Chronic Category: Medical Code(s): E11.9 - Type 2 diabetes mellitus without complications (4) Generalized anxiety disorder Current visit: Yes Status: Chronic Category: Medical Code(s): F41.1 - Generalized anxiety disorder (5) Developmental disorder Current visit: Yes Status: Chronic Category: Medical Code(s): F89 - Unspecified disorder of psychological development (6) Hypertension Current visit: Yes Status: Chronic Category: Medical Code(s): I10 - Essential (primary) hypertension (7) Major depressive disorder Current visit: Yes Status: Chronic Category: Medical Code(s): F32.9 - Major depressive disorder, single episode, unspecified (8) Schizophrenic disorder Current visit: Yes Status: Chronic Category: Medical Code(s): F20.9 - Schizophrenia, unspecified (9) Anemia Current visit: Yes Status: Chronic Category: Medical Code(s): D64.9 - Anemia, unspecified - Assessment and plan all Dx Assessment and Plan for all problems:: Patient seems to be improving slowly. No sputum has been collected for sputum culture. Blood cultures are negative. Will discuss further care with Dr. Willis. <Chris Willis - Last Filed: 09/24/18 16:57> Exam Vital signs and Labs for Last 24 Hours: Temp Pulse Resp BP Pulse Ox 99.5 F 82 18 120/81 92 L 09/24/18 08:00 09/24/18 08:00 09/24/18 08:00 09/24/18 08:00 09/24/18 08:00 Laboratory Results - last 24 hr 09/23/18 20:08: POC Glucose 105 09/24/18 06:28: POC Glucose 89 09/24/18 10:54: POC Glucose 95 09/24/18 16:22: POC Glucose 100 I & O for Last 24 hours: Intake & Output 09/22/18 09/23/18 09/24/18 09/25/18 11:59 11:59 11:59 11:59 Intake Total 2670 / 2670 6482 / 6482 3527 / 3527 5062 / 5062 Output Total 1450 / 1450 1100 / 1100 Balance 2670 / 2670 6482 / 6482 2077 / 2077 3962 / 3962 Weight 231 lb 4 oz 241 lb Microbiology Reports for the Last 24 Hours: Microbiology 09/22/18 12:55 Blood Blood Culture - Preliminary NO GROWTH AFTER 48 HOURS 09/22/18 11:18 Blood Blood Culture - Preliminary NO GROWTH AFTER 48 HOURS 09/23/18 09:30 Urine,Catheterized Urine Culture - Preliminary NO GROWTH AFTER 24 HOURS 09/21/18 12:08 Blood Blood Culture - Preliminary NO GROWTH AFTER 48 HOURS 09/21/18 12:08 Blood Blood Culture - Preliminary NO GROWTH AFTER 48 HOURS Assessment and Plan (1) Pneumonia Current visit: Yes Status: Acute Category: Medical Code(s): J18.9 - Pneumonia, unspecified organism (2) Renal insufficiency Current visit: Yes Status: Acute Category: Medical Code(s): N28.9 - Disorder of kidney and ureter, unspecified (3) Type 2 diabetes mellitus Current visit: Yes Status: Chronic Category: Medical Code(s): E11.9 - Type 2 diabetes mellitus without complications (4) Generalized anxiety disorder Current visit: Yes Status: Chronic Category: Medical Code(s): F41.1 - Generalized anxiety disorder (5) Developmental disorder Current visit: Yes Status: Chronic Category: Medical Code(s): F89 - Unspecified disorder of psychological development (6) Hypertension Current visit: Yes Status: Chronic Category: Medical Code(s): I10 - Essential (primary) hypertension (7) Major depressive disorder Current visit: Yes Status: Chronic Category: Medical Code(s): F32.9 - Major depressive disorder, single episode, unspecified (8) Schizophrenic disorder Current visit: Yes Status: Chronic Category: Medical Code(s): F20.9 - Schizophrenia, unspecified (9) Anemia Current visit: Yes Status: Chronic Category: Medical Code(s): D64.9 - Anemia, unspecified - Assessment and plan all Dx Assessment and Plan for all problems:: Patient seen and examined. Answers yes/no questions appropriately but does not elaborate. Color is very pale but has hx of chronic anemia. Otherwise, concur with above. Will repeat CXR today and labs in the AM.
[2018-09-25 07:20] LABS: Basophils % 0.6 % (0.1-2.0); Eosinophils # 0.1 K/mm3 (0.0-0.4); Eosinophils % 4.8 % (0.1-12.0); Hematocrit 28.4 % (42.0-52.0); Lymphocytes # 0.7 K/mm3 (0.7-4.5); Lymphocytes % 25.2 % (10-50); Mean Corpuscular HGB Conc 31.8 g/dL (31.8-35.4); Mean Corpuscular Volume 81.8 fl (80-94); Mean Platelet Volume 7.7 fl (7.4-10.4); Monocytes # 0.4 K/mm3 (0.1-1.0); Monocytes % 12.6 % (1.7-9.3); Neutrophils # 1.6 K/mm3 (1.8-7.8); Neutrophils % 56.8 % (37.0-80.0); Platelet Count 164 K/mm3 (142-424); Red Blood Count 3.47 M/mm3 (4.60-6.20); Red Cell Distribution Width 15.7 % (11.5-17.5); White Blood Count 2.9 K/mm3 (4.8-10.8)
[2018-09-25 07:21] LABS: Anion Gap 10.1 mEq/L (5-15); Calcium 7.8 mg/dL (8.5-10.1); Potassium 3.1 mmoL/L (3.5-5.1)
--- NOTE | 2018-09-25 10:07 | Progress Note ---
Internal Medicine - PN: Subj Interval history: He is sleeping. He is slow to arouse but answers questions appropriately. Nursing notes are reviewed and there is been no interim problems. He has been cooperative with his care. He has not yet produced a sputum. Exam Vital signs and Labs for Last 24 Hours: Temp Pulse Resp BP Pulse Ox 98.4 F 74 28 H 152/92 H 98 09/25/18 04:00 09/25/18 04:00 09/25/18 04:00 09/25/18 04:00 09/25/18 08:00 Laboratory Results - last 24 hr 09/24/18 10:54: POC Glucose 95 09/24/18 16:22: POC Glucose 100 09/24/18 20:21: POC Glucose 120 H 09/25/18 05:46: POC Glucose 85 09/25/18 07:05: WBC 2.9 L D, RBC 3.47 L, Hgb 9.0 L, Hct 28.4 L, MCV 81.8, MCH 26.0 L, MCHC 31.8, RDW 15.7, Plt Count 164, MPV 7.7, Neut % (Auto) 56.8, Lymph % (Auto) 25.2, [place] % (Auto) 12.6 H, Eos % (Auto) 4.8, Baso % (Auto) 0.6, Neut # (Auto) 1.6 L, Lymph # (Auto) 0.7, [place] # (Auto) 0.4, Eos # (Auto) 0.1, Baso # (Auto) 0.0 09/25/18 07:05: Sodium 143, Potassium 3.1 L, Chloride 108 H, Carbon Dioxide 28, Anion Gap 10.1, BUN 2 L D, Creatinine 0.65 L, Estimated Creat Clear 199, Estimated GFR 128, Est GFR ( Amer) 154 D, Glucose 89, Calcium 7.8 L I & O for Last 24 hours: Intake & Output 09/22/18 09/23/18 09/24/18 09/25/18 11:59 11:59 11:59 11:59 Intake Total 2670 / 2670 6482 / 6482 3677 / 3677 5422 / 5422 Output Total 1450 / 1450 4301 / 4301 Balance 2670 / 2670 6482 / 6482 2227 / 2227 1121 / 1121 Weight 231 lb 4 oz 241 lb Microbiology Reports for the Last 24 Hours: Microbiology 09/22/18 12:55 Blood Blood Culture - Preliminary NO GROWTH AFTER 48 HOURS 09/22/18 11:18 Blood Blood Culture - Preliminary NO GROWTH AFTER 48 HOURS 09/23/18 09:30 Urine,Catheterized Urine Culture - Preliminary NO GROWTH AFTER 24 HOURS Narrative: He is drowsy but arouses. Color is pale. No respiratory distress. Lungs are relatively clear. Heart is distant but regular. Abdomen obese, soft, and nondistended. No tenderness. Assessment and Plan (1) Pneumonia Current visit: Yes Status: Acute Category: Medical Code(s): J18.9 - Pneumonia, unspecified organism (2) Renal insufficiency Current visit: Yes Status: Acute Category: Medical Code(s): N28.9 - Disorder of kidney and ureter, unspecified (3) Type 2 diabetes mellitus Current visit: Yes Status: Chronic Category: Medical Code(s): E11.9 - Type 2 diabetes mellitus without complications (4) Generalized anxiety disorder Current visit: Yes Status: Chronic Category: Medical Code(s): F41.1 - Generalized anxiety disorder (5) Developmental disorder Current visit: Yes Status: Chronic Category: Medical Code(s): F89 - Unspecified disorder of psychological development (6) Hypertension Current visit: Yes Status: Chronic Category: Medical Code(s): I10 - Essential (primary) hypertension (7) Major depressive disorder Current visit: Yes Status: Chronic Category: Medical Code(s): F32.9 - Major depressive disorder, single episode, unspecified (8) Schizophrenic disorder Current visit: Yes Status: Chronic Category: Medical Code(s): F20.9 - Schizophrenia, unspecified (9) Hypokalemia Current visit: Yes Status: Acute Category: Medical Code(s): E87.6 - Hypokalemia (10) Chronic anemia Current visit: Yes Status: Acute Category: Medical Code(s): D64.9 - Anemia, unspecified - Assessment and plan all Dx Assessment and Plan for all problems:: No new concerns. He appears to be responding clinically to current treatment. Repeat chest x-ray yesterday however showed little improvement in his infiltrate. His white blood cell count remains low and his anemia is stable. Potassium has decreased. Will replace with oral potassium. Continue current antibiotic regimen.
--- NOTE | 2018-09-25 11:59 | Progress Note ---
Internal Medicine - PN: Subj *Date: 09/25/18 *Time: 11:58 Exam Vital signs and Labs for Last 24 Hours: Temp Pulse Resp BP Pulse Ox 98.4 F 74 28 H 152/92 H 98 09/25/18 04:00 09/25/18 04:00 09/25/18 04:00 09/25/18 04:00 09/25/18 08:00 Laboratory Results - last 24 hr 09/24/18 16:22: POC Glucose 100 09/24/18 20:21: POC Glucose 120 H 09/25/18 05:46: POC Glucose 85 09/25/18 07:05: WBC 2.9 L D, RBC 3.47 L, Hgb 9.0 L, Hct 28.4 L, MCV 81.8, MCH 26.0 L, MCHC 31.8, RDW 15.7, Plt Count 164, MPV 7.7, Neut % (Auto) 56.8, Lymph % (Auto) 25.2, [place] % (Auto) 12.6 H, Eos % (Auto) 4.8, Baso % (Auto) 0.6, Neut # (Auto) 1.6 L, Lymph # (Auto) 0.7, [place] # (Auto) 0.4, Eos # (Auto) 0.1, Baso # (Auto) 0.0 09/25/18 07:05: Sodium 143, Potassium 3.1 L, Chloride 108 H, Carbon Dioxide 28, Anion Gap 10.1, BUN 2 L D, Creatinine 0.65 L, Estimated Creat Clear 199, Estimated GFR 128, Est GFR ( Amer) 154 D, Glucose 89, Calcium 7.8 L 09/25/18 11:18: POC Glucose 103 I & O for Last 24 hours: Intake & Output 09/22/18 09/23/18 09/24/18 09/25/18 23:59 23:59 23:59 23:59 Intake Total 5816 / 5816 3958 / 3958 8117 / 8117 360 / 360 Output Total 350 / 350 4700 / 4700 701 / 701 Balance 5816 / 5816 3608 / 3608 3417 / 3417 -341 / -341 Weight 104.893 kg 109.316 kg Microbiology Reports for the Last 24 Hours: Microbiology 09/23/18 09:30 Urine,Catheterized Urine Culture - Final NO GROWTH AFTER 48 HOURS 09/22/18 12:55 Blood Blood Culture - Preliminary NO GROWTH AFTER 48 HOURS 09/22/18 11:18 Blood Blood Culture - Preliminary NO GROWTH AFTER 48 HOURS Assessment and Plan (1) Pneumonia Current visit: Yes Status: Acute Category: Medical Code(s): J18.9 - Pneumonia, unspecified organism (2) Renal insufficiency Current visit: Yes Status: Acute Category: Medical Code(s): N28.9 - Disorder of kidney and ureter, unspecified (3) Type 2 diabetes mellitus Current visit: Yes Status: Chronic Category: Medical Code(s): E11.9 - Type 2 diabetes mellitus without complications (4) Generalized anxiety disorder Current visit: Yes Status: Chronic Category: Medical Code(s): F41.1 - Generalized anxiety disorder (5) Developmental disorder Current visit: Yes Status: Chronic Category: Medical Code(s): F89 - Unspecified disorder of psychological development (6) Hypertension Current visit: Yes Status: Chronic Category: Medical Code(s): I10 - Essential (primary) hypertension (7) Major depressive disorder Current visit: Yes Status: Chronic Category: Medical Code(s): F32.9 - Major depressive disorder, single episode, unspecified (8) Schizophrenic disorder Current visit: Yes Status: Chronic Category: Medical Code(s): F20.9 - Schizophrenia, unspecified (9) Hypokalemia Current visit: Yes Status: Acute Category: Medical Code(s): E87.6 - Hypokalemia (10) Chronic anemia Current visit: Yes Status: Acute Category: Medical Code(s): D64.9 - Anemia, unspecified The patient's infection will respond to the chosen ABx?: Yes Is the patient receiving the right drug, dose, and route?: Yes Could a more targeted ABx be ordered?: No (NOTHING IS GROWING IN CULTURE THIS TIME.)
[2018-09-26 06:42] LABS: Basophils % 0.5 % (0.1-2.0); Eosinophils # 0.2 K/mm3 (0.0-0.4); Eosinophils % 4.7 % (0.1-12.0); Hemoglobin 8.7 g/dL (14.1-18.0); Lymphocytes % 22.8 % (10-50); Mean Corpuscular HGB Conc 31.7 g/dL (31.8-35.4); Mean Corpuscular Hemoglobin 25.9 pg (27.0-31.2); Mean Corpuscular Volume 81.6 fl (80-94); Mean Platelet Volume 7.9 fl (7.4-10.4); Monocytes # 0.5 K/mm3 (0.1-1.0); Monocytes % 11.1 % (1.7-9.3); Neutrophils # 2.7 K/mm3 (1.8-7.8); Platelet Count 170 K/mm3 (142-424); Red Blood Count 3.37 M/mm3 (4.60-6.20); Red Cell Distribution Width 15.7 % (11.5-17.5); White Blood Count 4.4 K/mm3 (4.8-10.8)
[2018-09-26 06:52] LABS: Anion Gap 10.4 mEq/L (5-15); Calcium 7.7 mg/dL (8.5-10.1); Potassium 3.4 mmoL/L (3.5-5.1)
[2018-09-26 06:53] LABS: Hematocrit 27.5 % (42.0-52.0)
--- NOTE | 2018-09-26 09:43 | Progress Note ---
Internal Medicine - PN: Subj Interval history: Chart reviewed and patient examined. He has no specific complaints today. He has only a slight residual cough. He has been unable to produce a sputum. Appetite has been good. He denies pain. Exam Vital signs and Labs for Last 24 Hours: Temp Pulse Resp BP Pulse Ox 97.9 F 77 20 150/90 H 98 09/26/18 04:00 09/26/18 04:00 09/26/18 04:00 09/26/18 04:00 09/26/18 07:07 Laboratory Results - last 24 hr 09/25/18 11:18: POC Glucose 103 09/25/18 16:41: POC Glucose 82 09/25/18 20:24: POC Glucose 103 09/26/18 05:26: POC Glucose 80 09/26/18 06:29: WBC 4.4 L D, RBC 3.37 L, Hgb 8.7 L, Hct 27.5 L, MCV 81.6, MCH 25.9 L, MCHC 31.7 L, RDW 15.7, Plt Count 170, MPV 7.9, Neut % (Auto) 61.0, Lymph % (Auto) 22.8, [place] % (Auto) 11.1 H, Eos % (Auto) 4.7, Baso % (Auto) 0.5, Neut # (Auto) 2.7, Lymph # (Auto) 1.0, [place] # (Auto) 0.5, Eos # (Auto) 0.2, Baso # (Auto) 0.0 09/26/18 06:29: Sodium 144, Potassium 3.4 L, Chloride 108 H, Carbon Dioxide 29, Anion Gap 10.4, BUN 1 L D, Creatinine 0.65 L, Estimated Creat Clear 199, Estimated GFR 128, Est GFR ( Amer) 154, Glucose 83, Calcium 7.7 L I & O for Last 24 hours: Intake & Output 09/23/18 09/24/18 09/25/18 09/26/18 11:59 11:59 11:59 12:59 Intake Total 6482 / 6482 3677 / 3677 5422 / 5422 4851 / 4851 Output Total 1450 / 1450 4301 / 4301 1950 / 1950 Balance 6482 / 6482 2227 / 2227 1121 / 1121 2901 / 2901 Weight 241 lb Microbiology Reports for the Last 24 Hours: Microbiology 09/23/18 09:30 Urine,Catheterized Urine Culture - Final NO GROWTH AFTER 48 HOURS Narrative: He is alert and oriented to name and place. Color remains pale. No respiratory distress. Mucous membranes are moist. Lungs are clear to auscultation. Heart is distant but regular. Abdomen is obese soft and nondistended with no masses or tenderness. Extremities no edema. Assessment and Plan (1) Pneumonia Current visit: Yes Status: Acute Category: Medical Code(s): J18.9 - Pneumonia, unspecified organism (2) Renal insufficiency Current visit: Yes Status: Acute Category: Medical Code(s): N28.9 - Disorder of kidney and ureter, unspecified (3) Type 2 diabetes mellitus Current visit: Yes Status: Chronic Category: Medical Code(s): E11.9 - Type 2 diabetes mellitus without complications (4) Generalized anxiety disorder Current visit: Yes Status: Chronic Category: Medical Code(s): F41.1 - Generalized anxiety disorder (5) Developmental disorder Current visit: Yes Status: Chronic Category: Medical Code(s): F89 - Unspecified disorder of psychological development (6) Hypertension Current visit: Yes Status: Chronic Category: Medical Code(s): I10 - Essential (primary) hypertension (7) Major depressive disorder Current visit: Yes Status: Chronic Category: Medical Code(s): F32.9 - Major depressive disorder, single episode, unspecified (8) Schizophrenic disorder Current visit: Yes Status: Chronic Category: Medical Code(s): F20.9 - Schizophrenia, unspecified (9) Hypokalemia Current visit: Yes Status: Acute Category: Medical Code(s): E87.6 - Hypokalemia (10) Chronic anemia Current visit: Yes Status: Acute Category: Medical Code(s): D64.9 - Anemia, unspecified - Assessment and plan all Dx Assessment and Plan for all problems:: His hemoglobin has drifted down a bit more but he is hemodynamically stable. He has microcytic indices consistent with iron deficiency. We will check anemia studies and start him on some iron supplement today. We will also check stool for occult blood. Continue current antibiotic regimen. He may be ready for [facility].
[2018-09-27 07:10] LABS: Basophils % 0.4 % (0.1-2.0); Eosinophils # 0.3 K/mm3 (0.0-0.4); Eosinophils % 5.9 % (0.1-12.0); Hematocrit 27.6 % (42.0-52.0); Hemoglobin 8.7 g/dL (14.1-18.0); Lymphocytes # 0.9 K/mm3 (0.7-4.5); Lymphocytes % 16.5 % (10-50); Mean Corpuscular HGB Conc 31.7 g/dL (31.8-35.4); Mean Corpuscular Hemoglobin 25.8 pg (27.0-31.2); Mean Corpuscular Volume 81.5 fl (80-94); Mean Platelet Volume 7.7 fl (7.4-10.4); Monocytes # 0.6 K/mm3 (0.1-1.0); Monocytes % 11.5 % (1.7-9.3); Neutrophils # 3.6 K/mm3 (1.8-7.8); Neutrophils % 65.8 % (37.0-80.0); Platelet Count 181 K/mm3 (142-424); Red Blood Count 3.38 M/mm3 (4.60-6.20); Red Cell Distribution Width 15.9 % (11.5-17.5); White Blood Count 5.4 K/mm3 (4.8-10.8)
[2018-09-27 07:30] LABS: Anion Gap 11.1 mEq/L (5-15); Calcium 7.7 mg/dL (8.5-10.1); Potassium 3.1 mmoL/L (3.5-5.1)
--- NOTE | 2018-09-27 14:11 | Progress Note ---
<Anitra Jones - Last Filed: 09/27/18 14:07> Internal Medicine - PN: Subj *Date: 09/27/18 *Time: 14:07 Interval history: I saw the patient this AM; He denied chest pain, nausea and SOB. I also spoke with one of his nurses at [facility]. She stated that he normally feeds himself, can sit on the side of the bed, can transfer from the bed to the wheelchair with the assistance of 2, and is incontinent of blowel and bladder. He has been eating about 25% of his diet and occasionally will eat more. Exam Vital signs and Labs for Last 24 Hours: Temp Pulse Resp BP Pulse Ox 98.5 F 78 18 132/68 99 09/27/18 08:00 09/27/18 08:00 09/27/18 08:00 09/27/18 08:00 09/27/18 08:00 Laboratory Results - last 24 hr 09/26/18 08:15: Stl Aeromonas (PCR) Not detected, Stl C. cayetanensis PCR Not detected, Stool Rotavirus (PCR) Not detected, Stl Adenov F 40/41 PCR Not detected, Stool Astrovirus (PCR) Not detected, Stool Campylobacter PCR Not detected, Stl C.difficile Tox PCR Not detected, Stool Cryptosporidium PCR Not detected, Stl E.coli Shiga Tox PCR Not detected, Stool E coli O157 PCR Not detected, Stl Enterotoxigenic E PCR Not detected, Stool EPEC (PCR) Not detected, Stool EAEC (PCR) Not detected, Stl E. histolytica PCR Not detected, Stool Giardia Lamblia PCR Not detected, Stool Salmonella PCR Not detected, Stool Sapovirus (PCR) Not detected, Stl P. shigelloides PCR Not detected, Stl Shigella/EIEC PCR Not detected, St Y.enterocolitica PCR Not detected, Stool Vibrio (PCR) Not detected, Stl Vibrio cholerae PCR Not detected, Stl Norovirus GI/GII PCR Not detected 09/26/18 16:48: POC Glucose 104 09/26/18 21:06: POC Glucose 97 09/27/18 05:48: POC Glucose 78 09/27/18 06:44: WBC 5.4, RBC 3.38 L, Hgb 8.7 L, Hct 27.6 L, MCV 81.5, MCH 25.8 L , MCHC 31.7 L, RDW 15.9, Plt Count 181, MPV 7.7, Neut % (Auto) 65.8, Lymph % (Auto) 16.5, [place] % (Auto) 11.5 H, Eos % (Auto) 5.9, Baso % (Auto) 0.4, Neut # (Auto) 3.6, Lymph # (Auto) 0.9, [place] # (Auto) 0.6, Eos # (Auto) 0.3, Baso # (Auto) 0.0 09/27/18 06:44: Sodium 143, Potassium 3.1 L, Chloride 108 H, Carbon Dioxide 27, Anion Gap 11.1, BUN 1 L, Creatinine 0.67 L, Estimated Creat Clear 193, Estimated GFR 123, Est GFR ( Amer) 149, Glucose 84, Calcium 7.7 L 09/27/18 10:55: POC Glucose 101 I & O for Last 24 hours: Intake & Output 09/25/18 09/26/18 09/27/18 09/28/18 10:59 11:59 11:59 11:59 Intake Total 6125 / 6125 Output Total 1000 / 1000 Balance 5125 / 5125 Microbiology Reports for the Last 24 Hours: Microbiology 09/22/18 12:55 Blood Blood Culture - Final NO GROWTH AFTER 5 DAYS 09/22/18 11:18 Blood Blood Culture - Final NO GROWTH AFTER 5 DAYS 09/21/18 12:08 Blood Blood Culture - Final NO GROWTH AFTER 5 DAYS 09/21/18 12:08 Blood Blood Culture - Final NO GROWTH AFTER 5 DAYS - Constitutional no acute distress Comments: awakened for exam - *Routine Respiratory Exam Comments: few rhonchi bilaterally - *Routine Cardiovascular Exam Present: RRR - *Routine Abdominal Exam Present: soft, normoactive bowel sounds. Absent: tenderness - *Routine Extremities Exam Absent: edema - *Routine Neurological Exam Present: alert answers questions with yes and no Assessment and Plan (1) Pneumonia Current visit: Yes Status: Acute Category: Medical Code(s): J18.9 - Pneumonia, unspecified organism (2) Renal insufficiency Current visit: Yes Status: Acute Category: Medical Code(s): N28.9 - Disorder of kidney and ureter, unspecified (3) Type 2 diabetes mellitus Current visit: Yes Status: Chronic Category: Medical Code(s): E11.9 - Type 2 diabetes mellitus without complications (4) Generalized anxiety disorder Current visit: Yes Status: Chronic Category: Medical Code(s): F41.1 - Generalized anxiety disorder (5) Developmental disorder Current visit: Yes Status: Chronic Category: Medical Code(s): F89 - Unspecified disorder of psychological development (6) Hypertension Current visit: Yes Status: Chronic Category: Medical Code(s): I10 - Essential (primary) hypertension (7) Major depressive disorder Current visit: Yes Status: Chronic Category: Medical Code(s): F32.9 - Major depressive disorder, single episode, unspecified (8) Schizophrenic disorder Current visit: Yes Status: Chronic Category: Medical Code(s): F20.9 - Schizophrenia, unspecified (9) Hypokalemia Current visit: Yes Status: Acute Category: Medical Code(s): E87.6 - Hypokalemia (10) Chronic anemia Current visit: Yes Status: Acute Category: Medical Code(s): D64.9 - Anemia, unspecified (11) Debility Current visit: Yes Status: Acute Category: Medical Code(s): R53.81 - Other malaise - Assessment and plan all Dx Assessment and Plan for all problems:: KCL supplement; continue with Iron; possibly back to [facility] tomorrow <Chris Willis - Last Filed: 09/27/18 17:22> Exam Vital signs and Labs for Last 24 Hours: Temp Pulse Resp BP Pulse Ox 98.5 F 86 16 132/80 99 09/27/18 16:00 09/27/18 16:00 09/27/18 16:00 09/27/18 16:00 09/27/18 16:00 Laboratory Results - last 24 hr 09/26/18 16:48: POC Glucose 104 09/26/18 21:06: POC Glucose 97 09/27/18 05:48: POC Glucose 78 09/27/18 06:44: WBC 5.4, RBC 3.38 L, Hgb 8.7 L, Hct 27.6 L, MCV 81.5, MCH 25.8 L , MCHC 31.7 L, RDW 15.9, Plt Count 181, MPV 7.7, Neut % (Auto) 65.8, Lymph % (Auto) 16.5, [place] % (Auto) 11.5 H, Eos % (Auto) 5.9, Baso % (Auto) 0.4, Neut # (Auto) 3.6, Lymph # (Auto) 0.9, [place] # (Auto) 0.6, Eos # (Auto) 0.3, Baso # (Auto) 0.0 09/27/18 06:44: Sodium 143, Potassium 3.1 L, Chloride 108 H, Carbon Dioxide 27, Anion Gap 11.1, BUN 1 L, Creatinine 0.67 L, Estimated Creat Clear 193, Estimated GFR 123, Est GFR ( Amer) 149, Glucose 84, Calcium 7.7 L 09/27/18 10:55: POC Glucose 101 09/27/18 15:57: POC Glucose 85 I & O for Last 24 hours: Intake & Output 09/25/18 09/26/18 09/27/18 09/28/18 10:59 11:59 11:59 11:59 Intake Total 6125 / 6125 480 / 480 Output Total 1000 / 1000 Balance 5125 / 5125 480 / 480 Microbiology Reports for the Last 24 Hours: Microbiology 09/22/18 12:55 Blood Blood Culture - Final NO GROWTH AFTER 5 DAYS 09/22/18 11:18 Blood Blood Culture - Final NO GROWTH AFTER 5 DAYS 09/21/18 12:08 Blood Blood Culture - Final NO GROWTH AFTER 5 DAYS 09/21/18 12:08 Blood Blood Culture - Final NO GROWTH AFTER 5 DAYS Assessment and Plan (1) Pneumonia Current visit: Yes Status: Acute Category: Medical Code(s): J18.9 - Pneumonia, unspecified organism (2) Renal insufficiency Current visit: Yes Status: Acute Category: Medical Code(s): N28.9 - Disorder of kidney and ureter, unspecified (3) Type 2 diabetes mellitus Current visit: Yes Status: Chronic Category: Medical Code(s): E11.9 - Type 2 diabetes mellitus without complications (4) Generalized anxiety disorder Current visit: Yes Status: Chronic Category: Medical Code(s): F41.1 - Generalized anxiety disorder (5) Developmental disorder Current visit: Yes Status: Chronic Category: Medical Code(s): F89 - Unspecified disorder of psychological development (6) Hypertension Current visit: Yes Status: Chronic Category: Medical Code(s): I10 - Essential (primary) hypertension (7) Major depressive disorder Current visit: Yes Status: Chronic Category: Medical Code(s): F32.9 - Major depressive disorder, single episode, unspecified (8) Schizophrenic disorder Current visit: Yes Status: Chronic Category: Medical Code(s): F20.9 - Schizophrenia, unspecified (9) Hypokalemia Current visit: Yes Status: Acute Category: Medical Code(s): E87.6 - Hypokalemia (10) Chronic anemia Current visit: Yes Status: Acute Category: Medical Code(s): D64.9 - Anemia, unspecified (11) Debility Current visit: Yes Status: Acute Category: Medical Code(s): R53.81 - Other malaise - Assessment and plan all Dx Assessment and Plan for all problems:: Patient seen and examined this AM. He seemed a bit more lethargic. H&H low but stable. Other anemia studies pending. K+ lower despite KCl supplements. Staff not he is not eating much but drinking well. Will increase K+ supplement and continue to monitor H&H. Possibly discharge to [facility] tomorrow.
[2018-09-28 06:37] LABS: Basophils % 0.4 % (0.1-2.0); Eosinophils # 0.3 K/mm3 (0.0-0.4); Hemoglobin 8.6 g/dL (14.1-18.0); Lymphocytes # 0.9 K/mm3 (0.7-4.5); Lymphocytes % 17.2 % (10-50); Mean Corpuscular Hemoglobin 25.7 pg (27.0-31.2); Mean Corpuscular Volume 80.2 fl (80-94); Mean Platelet Volume 7.5 fl (7.4-10.4); Monocytes # 0.6 K/mm3 (0.1-1.0); Monocytes % 10.3 % (1.7-9.3); Neutrophils # 3.6 K/mm3 (1.8-7.8); Neutrophils % 66.2 % (37.0-80.0); Platelet Count 204 K/mm3 (142-424); Red Blood Count 3.36 M/mm3 (4.60-6.20); Red Cell Distribution Width 15.7 % (11.5-17.5); White Blood Count 5.4 K/mm3 (4.8-10.8)
[2018-09-28 06:45] LABS: Anion Gap 12.2 mEq/L (5-15); Calcium 7.8 mg/dL (8.5-10.1); Potassium 3.2 mmoL/L (3.5-5.1)
[2018-09-28 09:43] LABS: Folate 16.7 ng/mL (>3.0)
--- NOTE | 2018-09-28 09:53 | Progress Note ---
<Anitra Jones - Last Filed: 09/28/18 09:50> Internal Medicine - PN: Subj *Date: 09/28/18 *Time: 09:50 Interval history: Patient states he is doing fine. He denies shortness of breath, chest pain, and nausea. He states he has a cough. He states his right shoulder in his throat hurt. States that he wants to go home. Spoke with his care providers today. He did get out of bed and sit in a chair yesterday. He is able to walk to the bathroom with a walker and one assist. His bowels are moving. He never eats very well-about 25-50% of the meal. Exam Vital signs and Labs for Last 24 Hours: Temp Pulse Resp BP Pulse Ox 98.7 F 85 16 144/84 H 95 09/28/18 08:00 09/28/18 08:00 09/28/18 08:00 09/28/18 08:00 09/28/18 08:00 Laboratory Results - last 24 hr 09/26/18 06:29: Vitamin B12 606 09/26/18 06:29: Iron 18 L, TIBC 200 L, Iron Saturation 9 L, Unsaturated IBC 182, Folate 16.7 09/27/18 10:55: POC Glucose 101 09/27/18 15:57: POC Glucose 85 09/27/18 20:05: POC Glucose 82 09/28/18 05:41: POC Glucose 85 09/28/18 06:14: WBC 5.4, RBC 3.36 L, Hgb 8.6 L, Hct 27.0 L, MCV 80.2, MCH 25.7 L , MCHC 32.0, RDW 15.7, Plt Count 204, MPV 7.5, Neut % (Auto) 66.2, Lymph % (Auto) 17.2, [place] % (Auto) 10.3 H, Eos % (Auto) 6.0, Baso % (Auto) 0.4, Neut # (Auto) 3.6, Lymph # (Auto) 0.9, [place] # (Auto) 0.6, Eos # (Auto) 0.3, Baso # (Auto) 0.0 09/28/18 06:14: Sodium 142, Potassium 3.2 L, Chloride 107, Carbon Dioxide 26, Anion Gap 12.2, BUN 1 L, Creatinine 0.59 L, Estimated Creat Clear 219, Estimated GFR 143, Est GFR ( Amer) 173, Glucose 83, Calcium 7.8 L I & O for Last 24 hours: Intake & Output 09/25/18 09/26/18 09/27/18 09/28/18 10:59 11:59 11:59 11:59 Intake Total 6275 / 6275 1280 / 1280 Output Total 1000 / 1000 Balance 5275 / 5275 1280 / 1280 Microbiology Reports for the Last 24 Hours: Microbiology 09/22/18 12:55 Blood Blood Culture - Final NO GROWTH AFTER 5 DAYS 09/22/18 11:18 Blood Blood Culture - Final NO GROWTH AFTER 5 DAYS - Constitutional no acute distress Comments: Lying comfortably in the bed - *Routine Respiratory Exam Present: CTA bilaterally (Anteriorly and posteriorly. Unable to take slow deep breath.) - *Routine Cardiovascular Exam Present: RRR - *Routine Abdominal Exam Present: soft, normoactive bowel sounds. Absent: tenderness - *Routine Extremities Exam Absent: edema, calf tenderness - *Routine Neurological Exam Present: alert More alert this a.m. Voice is stronger and uses additional words besides yes and no. Assessment and Plan (1) Pneumonia Status: Acute Category: Medical Code(s): J18.9 - Pneumonia, unspecified organism (2) Renal insufficiency Status: Acute Category: Medical Code(s): N28.9 - Disorder of kidney and ureter, unspecified (3) Type 2 diabetes mellitus Status: Chronic Category: Medical Code(s): E11.9 - Type 2 diabetes mellitus without complications (4) Generalized anxiety disorder Status: Chronic Category: Medical Code(s): F41.1 - Generalized anxiety disorder (5) Developmental disorder Status: Chronic Category: Medical Code(s): F89 - Unspecified disorder of psychological development (6) Hypertension Status: Chronic Category: Medical Code(s): I10 - Essential (primary) hypertension (7) Major depressive disorder Status: Chronic Category: Medical Code(s): F32.9 - Major depressive disorder, single episode, unspecified (8) Schizophrenic disorder Status: Chronic Category: Medical Code(s): F20.9 - Schizophrenia, unspecified (9) Hypokalemia Status: Acute Category: Medical Code(s): E87.6 - Hypokalemia (10) Chronic anemia Status: Acute Category: Medical Code(s): D64.9 - Anemia, unspecified (11) Debility Status: Acute Category: Medical Code(s): R53.81 - Other malaise - Assessment and plan all Dx Assessment and Plan for all problems:: Patient is stable for discharge. Will transfer back to [facility]. See discharge orders. <Chris Willis - Last Filed: 09/28/18 18:22> Exam Vital signs and Labs for Last 24 Hours: Temp Pulse Resp BP Pulse Ox 98.7 F 85 16 144/84 H 95 09/28/18 08:00 09/28/18 08:00 09/28/18 08:00 09/28/18 08:00 09/28/18 08:00 Laboratory Results - last 24 hr 09/26/18 06:29: Vitamin B12 606 09/26/18 06:29: Iron 18 L, TIBC 200 L, Iron Saturation 9 L, Unsaturated IBC 182, Folate 16.7 09/27/18 20:05: POC Glucose 82 09/28/18 05:41: POC Glucose 85 09/28/18 06:14: WBC 5.4, RBC 3.36 L, Hgb 8.6 L, Hct 27.0 L, MCV 80.2, MCH 25.7 L , MCHC 32.0, RDW 15.7, Plt Count 204, MPV 7.5, Neut % (Auto) 66.2, Lymph % (Auto) 17.2, [place] % (Auto) 10.3 H, Eos % (Auto) 6.0, Baso % (Auto) 0.4, Neut # (Auto) 3.6, Lymph # (Auto) 0.9, [place] # (Auto) 0.6, Eos # (Auto) 0.3, Baso # (Auto) 0.0 09/28/18 06:14: Sodium 142, Potassium 3.2 L, Chloride 107, Carbon Dioxide 26, Anion Gap 12.2, BUN 1 L, Creatinine 0.59 L, Estimated Creat Clear 219, Estimated GFR 143, Est GFR ( Amer) 173, Glucose 83, Calcium 7.8 L I & O for Last 24 hours: Intake & Output 09/26/18 09/27/18 09/28/18 09/29/18 11:59 11:59 11:59 11:59 Intake Total 6275 / 6275 1280 / 1280 Output Total 1000 / 1000 Balance 5275 / 5275 1280 / 1280 Assessment and Plan (1) Pneumonia Status: Acute Category: Medical Code(s): J18.9 - Pneumonia, unspecified organism (2) Renal insufficiency Status: Acute Category: Medical Code(s): N28.9 - Disorder of kidney and ureter, unspecified (3) Type 2 diabetes mellitus Status: Chronic Category: Medical Code(s): E11.9 - Type 2 diabetes mellitus without complications (4) Generalized anxiety disorder Status: Chronic Category: Medical Code(s): F41.1 - Generalized anxiety disorder (5) Developmental disorder Status: Chronic Category: Medical Code(s): F89 - Unspecified disorder of psychological development (6) Hypertension Status: Chronic Category: Medical Code(s): I10 - Essential (primary) hypertension (7) Major depressive disorder Status: Chronic Category: Medical Code(s): F32.9 - Major depressive disorder, single episode, unspecified (8) Schizophrenic disorder Status: Chronic Category: Medical Code(s): F20.9 - Schizophrenia, unspecified (9) Hypokalemia Status: Acute Category: Medical Code(s): E87.6 - Hypokalemia (10) Chronic anemia Status: Acute Category: Medical Code(s): D64.9 - Anemia, unspecified (11) Debility Status: Acute Category: Medical Code(s): R53.81 - Other malaise - Assessment and plan all Dx Assessment and Plan for all problems:: He looks much better today. Concur with plan for discharge.
--- NOTE | 2018-09-28 10:00 | Discharge Summary ---
General - General Admission date:: 09/21/18 <Chris Willis - 09/28/18 18:24> 09/21/18 <Anitra Jones - 09/28/18 10:05> Discharge date: 09/28/18 <Anitra Jones - 09/28/18 10:05> HPI HPI: Mr. Umana is a 57-year-old white male resident [facility] he was sent to [facility] emergency room for evaluation due to a fever and behaviors. Patient noted to have a history of developmental disorder, type 2 diabetes mellitus, hyperlipidemia, major depression disorder, hypertension, convulsions, schizophrenic disorder and anxiety disorder. Patient was also noted to have a low blood pressure at 82/55 in the alf. With arrival in the emergency room patient's blood pressure remained low. He was given IV fluids and then admitted for further evaluation and treatment. With evaluation the following morning patient stated that he had a cough and was short of breath. He denied pain. Patient mostly answered questions with yes or no. <Anitra Jones - 09/28/18 10:05> Hospital Course Hospital Course: After admission with IV fluids blood pressure normalized. Regular medicines to include his blood pressure meds were started. He was also started on Levaquin and Zosyn as well as duo nebs for his pneumonia. He was unable to produce a sputum specimen during his stay. He made very slow improvement and gradually the cough became minimal. He was lethargic at times and a poor eater. He was able to get out of bed and walk with a walker to the bathroom with assistance. He did sit up in a chair. He was noted to have a chronic anemia which was felt to be iron deficient and confirmed with a low iron of 18. He was started on an iron supplement. Potassium was low and he was started on a potassium supplement.Stool for occult blood was noted to be negative. Blood cultures were also negative. Flu test were negative. On 09/28/2018 patient was felt to be stable to be transferred back to [facility] with antibiotic, Levaquin. Labs -CBC and BMP, will need to be repeated in 1 week. He will be followed by medical staff specialist at [facility]. <Anitra Jones - 09/28/18 10:29> Objective Vital signs: Temp Pulse Resp BP Pulse Ox 98.7 F 85 16 144/84 H 95 09/28/18 08:00 09/28/18 08:00 09/28/18 08:00 09/28/18 08:00 09/28/18 08:00 <Chris Willis - 09/28/18 18:24> Temp Pulse Resp BP Pulse Ox 98.7 F 85 16 144/84 H 95 09/28/18 08:00 09/28/18 08:00 09/28/18 08:00 09/28/18 08:00 09/28/18 08:00 <Anitra Jones - 09/28/18 10:05> Narrative: With exam patient was alert and resting comfortably in the bed. Heart was regular rate and rhythm. Lungs sounded clear to auscultation bilaterally A&P with poor inspiratory effort. Abdomen is soft nontender nondistended with positive bowel sounds. Extremities revealed no edema and no calf tenderness. Patient's speech was more clear and he was able to use more words today <KarenAnitra - 09/28/18 10:05> Results Labs on day of discharge: Labs from last 24 hours 09/28/18 09/28/18 09/28/18 06:14 06:14 05:41 WBC 5.4 RBC 3.36 L Hgb 8.6 L Hct 27.0 L MCV 80.2 MCH 25.7 L MCHC 32.0 RDW 15.7 Plt Count 204 MPV 7.5 Neut % (Auto) 66.2 Lymph % (Auto) 17.2 [place] % (Auto) 10.3 H Eos % (Auto) 6.0 Baso % (Auto) 0.4 Neut # (Auto) 3.6 Lymph # (Auto) 0.9 [place] # (Auto) 0.6 Eos # (Auto) 0.3 Baso # (Auto) 0.0 Sodium 142 Potassium 3.2 L Chloride 107 Carbon Dioxide 26 Anion Gap 12.2 BUN 1 L Creatinine 0.59 L Estimated Creat Clear 219 Estimated GFR 143 Est GFR ( Amer) 173 Glucose 83 POC Glucose 85 Calcium 7.8 L Iron TIBC Iron Saturation Unsaturated IBC Vitamin B12 Folate 09/27/18 09/26/18 09/26/18 20:05 06:29 06:29 WBC RBC Hgb Hct MCV MCH MCHC RDW Plt Count MPV Neut % (Auto) Lymph % (Auto) [place] % (Auto) Eos % (Auto) Baso % (Auto) Neut # (Auto) Lymph # (Auto) [place] # (Auto) Eos # (Auto) Baso # (Auto) Sodium Potassium Chloride Carbon Dioxide Anion Gap BUN Creatinine Estimated Creat Clear Estimated GFR Est GFR ( Amer) Glucose POC Glucose 82 Calcium Iron 18 L TIBC 200 L Iron Saturation 9 L Unsaturated IBC 182 Vitamin B12 606 Folate 16.7 <Chris Willis - 09/28/18 18:24> Labs from last 24 hours 09/28/18 09/28/18 09/28/18 06:14 06:14 05:41 WBC 5.4 RBC 3.36 L Hgb 8.6 L Hct 27.0 L MCV 80.2 MCH 25.7 L MCHC 32.0 RDW 15.7 Plt Count 204 MPV 7.5 Neut % (Auto) 66.2 Lymph % (Auto) 17.2 [place] % (Auto) 10.3 H Eos % (Auto) 6.0 Baso % (Auto) 0.4 Neut # (Auto) 3.6 Lymph # (Auto) 0.9 [place] # (Auto) 0.6 Eos # (Auto) 0.3 Baso # (Auto) 0.0 Sodium 142 Potassium 3.2 L Chloride 107 Carbon Dioxide 26 Anion Gap 12.2 BUN 1 L Creatinine 0.59 L Estimated Creat Clear 219 Estimated GFR 143 Est GFR ( Amer) 173 Glucose 83 POC Glucose 85 Calcium 7.8 L Iron TIBC Iron Saturation Unsaturated IBC Vitamin B12 Folate 09/27/18 09/27/18 09/27/18 20:05 15:57 10:55 WBC RBC Hgb Hct MCV MCH MCHC RDW Plt Count MPV Neut % (Auto) Lymph % (Auto) [place] % (Auto) Eos % (Auto) Baso % (Auto) Neut # (Auto) Lymph # (Auto) [place] # (Auto) Eos # (Auto) Baso # (Auto) Sodium Potassium Chloride Carbon Dioxide Anion Gap BUN Creatinine Estimated Creat Clear Estimated GFR Est GFR ( Amer) Glucose POC Glucose 82 85 101 Calcium Iron TIBC Iron Saturation Unsaturated IBC Vitamin B12 Folate 09/26/18 09/26/18 06:29 06:29 WBC RBC Hgb Hct MCV MCH MCHC RDW Plt Count MPV Neut % (Auto) Lymph % (Auto) [place] % (Auto) Eos % (Auto) Baso % (Auto) Neut # (Auto) Lymph # (Auto) [place] # (Auto) Eos # (Auto) Baso # (Auto) Sodium Potassium Chloride Carbon Dioxide Anion Gap BUN Creatinine Estimated Creat Clear Estimated GFR Est GFR ( Amer) Glucose POC Glucose Calcium Iron 18 L TIBC 200 L Iron Saturation 9 L Unsaturated IBC 182 Vitamin B12 606 Folate 16.7 <Anitra Jones - 09/28/18 10:05> - Additional Comments Chest x-ray 09/21/2018 IMPRESSION: No acute finding. Chronic subluxation of the right humeral head Chest x-ray 09/22/2018 IMPRESSION: Atelectasis or infiltrate in the right lung base medially Chest x-ray 09/24/2018 IMPRESSION: No change mild right basilar airspace disease <Anitra Jones - 09/28/18 10:29> DS: Diagnosis - Discharge Diagnosis (1) Pneumonia Status: Acute (2) Renal insufficiency Status: Acute (3) Type 2 diabetes mellitus Status: Chronic (4) Generalized anxiety disorder Status: Chronic (5) Developmental disorder Status: Chronic (6) Hypertension Status: Chronic (7) Major depressive disorder Status: Chronic (8) Schizophrenic disorder Status: Chronic (9) Hypokalemia Status: Acute (10) Chronic anemia Status: Acute (11) Debility Status: Acute <Chris Willis - 09/28/18 18:24> (1) Pneumonia Status: Acute (2) Renal insufficiency Status: Acute (3) Type 2 diabetes mellitus Status: Chronic (4) Generalized anxiety disorder Status: Chronic (5) Developmental disorder Status: Chronic (6) Hypertension Status: Chronic (7) Major depressive disorder Status: Chronic (8) Schizophrenic disorder Status: Chronic (9) Hypokalemia Status: Acute (10) Chronic anemia Status: Acute (11) Debility Status: Acute <Anitra Jones - 09/28/18 10:15> Discharge Plan - Patient Discharge Instructions ACTIVITY: Continue current activity <Anitra Jones - 09/28/18 10:05> DIET: continue same diet <Anitra Jones - 09/28/18 10:05> Patient Instructions: DI for Pneumonia -- Adult <Chris Willis - 09/28/18 18:24> Forms: <Chris Willis - 09/28/18 18:24> - Follow up Plan Follow up with: Yahir Reyes [Primary Care Provider] - <Chris Willis - 09/28/18 18:24> Disposition: Xfer SNF <Chris Willis - 09/28/18 18:24> Home Medications: Home Medications Medication Instructions Recorded Confirmed Type Acetaminophen [Acetaminophen Extra 1,000 mg PO TID 02/19/18 09/22/18 History Strength] Carvedilol [Carvedilol 12.5mg Tab] 12.5 mg PO BID 02/19/18 09/21/18 History Fenofibrate,Micronized [Tricor 134 mg PO HS 02/19/18 09/21/18 History 134mg] Furosemide [Furosemide 40MG tAB] 40 mg PO DAILY 02/19/18 09/21/18 History L.acidoph,Paracasei, B.lactis 1 tab PO DAILY 02/19/18 09/22/18 History [Probiotic] Lactulose [Lactulose 10gm/15ml 30 ml PO DAILY PRN 02/19/18 09/22/18 History Oral Soln] Lisinopril [Lisinopril 5mg Tablet] 5 mg PO BID 02/19/18 09/21/18 History Loratadine [Claritin] 10 mg PO DAILY 02/19/18 09/21/18 History Lovastatin 40 mg PO HS 02/19/18 09/21/18 History Methylcellulose [Fiber] 500 mg PO DAILY 02/19/18 09/21/18 History Multivitamin with Minerals [Hair, 1 tab PO HS 02/19/18 09/22/18 History Skin and Nails] [place]-3 Fatty Acids [Fish Oil 1,000 mg PO BID 02/19/18 09/21/18 History Concentrate] Pioglitazone HCl 15 mg PO DAILY 02/19/18 09/21/18 History risperiDONE [Risperidone] 2 mg PO BID 02/19/18 09/21/18 History Chlorhexidine Gluconate [Peridex] 15 ml MM BID 09/21/18 09/21/18 History Divalproex Sodium [Depakote 250 mg PO TID 09/21/18 09/22/18 History Sprinkle 125mg capsule] diazePAM [Valium 2mg tablet] 2 mg PO BID 09/21/18 09/21/18 History Acetaminophen 1,000 mg PO Q6HP PRN 09/22/18 09/22/18 History Ketoconazole [Nizoral] 1 applicatio TOPICAL [place] 09/22/18 09/22/18 History Metformin HCl [Metformin HCl ER] 500 mg PO BID 09/22/18 09/22/18 History PARoxetine HCl [Paxil] 40 mg PO DAILY 09/22/18 09/22/18 History Ferrous Sulfate [Ferrous Sulfate 325 mg PO BID #60 tab 09/28/18 Rx 325mg Tablet] Potassium Chloride [K-Tab ER 10 10 meq PO BID #0 09/28/18 09/22/18 Rx mEq] levoFLOXacin [Levaquin 500mg 500 mg PO DAILY #3 tab 09/28/18 Rx tab] <AlbaChris - 09/28/18 18:24> Prescriptions/Medication Reconciliation: New Ferrous Sulfate [Ferrous Sulfate 325mg Tablet] 325 mg PO BID #60 tab levoFLOXacin [Levaquin 500mg tab] 500 mg PO DAILY #3 tab Continue Carvedilol [Carvedilol 12.5mg Tab] 12.5 mg PO BID Furosemide [Furosemide 40MG tAB] 40 mg PO DAILY risperiDONE [Risperidone] 2 mg PO BID Pioglitazone HCl 15 mg PO DAILY [place]-3 Fatty Acids [Fish Oil Concentrate] 1,000 mg PO BID Multivitamin with Minerals [Hair, Skin and Nails] 1 tab PO HS Methylcellulose [Fiber] 500 mg PO DAILY Lovastatin 40 mg PO HS Loratadine [Claritin] 10 mg PO DAILY Lactulose [Lactulose 10gm/15ml Oral Soln] 30 ml PO DAILY PRN PRN Reason: Constipation L.acidoph,Paracasei, B.lactis [Probiotic] 1 tab PO DAILY Fenofibrate,Micronized [Tricor 134mg] 134 mg PO HS Acetaminophen [Acetaminophen Extra Strength] 1,000 mg PO TID Divalproex Sodium [Depakote Sprinkle 125mg capsule] 250 mg PO TID Chlorhexidine Gluconate [Peridex] 15 ml MM BID diazePAM [Valium 2mg tablet] 2 mg PO BID PARoxetine HCl [Paxil] 40 mg PO DAILY Metformin HCl [Metformin HCl ER] 500 mg PO BID Ketoconazole [Nizoral] 1 applicatio TOPICAL [place] Lisinopril [Lisinopril 5mg Tablet] 5 mg PO BID Acetaminophen 1,000 mg PO Q6HP PRN PRN Reason: PAIN/FEVER Changed Potassium Chloride [K-Tab ER 10 mEq] 10 meq PO BID #0 Discontinued cephALEXin [Keflex 500mg Cap] 500 mg PO TID <Chris Willis - 09/28/18 18:24> - Additional Information Additional Information: Patient seen and examined. Concur with above plans for discharge to [facility] to the care of Dr. Reyes. Would recommend f/u labs within the next week to monitor his anemia and hypokalemia. He still has some anemia studies pending at time of discharge. <Chris Willis - 09/28/18 18:24>
== END 2018-09-28 10:50 | DRG 195 ==
LOC: ER 11:55 → 2ND 11:55 → OBSVTOIN 17:57 → 2ND 17:58
PROVIDERS: ADMIT Family Medicine; ATTEND Family Medicine
CPT/HCPCS: 36415; 71010; 71045; 80048; 80053; 81001; 82272; 82607; 82746; 82962; 83540; 83550; 83605; 83880; 84484; 85025; 87040; 87086; 87275; 87276; 87507; 93005; 94640; 94761; 96365; 96374; 96375; 99285; G0328; J1956; J2543

== ENCOUNTER 2021-07-01 16:48 | Inpatient (IN) | payer MEDICARE, MEDICAID, SELFPAY ==
[2021-07-01] VITALS (34 sets, daily range): BP systolic 65–113; BP diastolic 28–87; PULSE 61–98; RESP 15–33; TEMP 36.7–37.6; O2SAT 94–100; BMI 36.6; BMI 37.8
--- NOTE | 2021-07-01 17:19 | ECG_ITS ---
APPROVED REPORT Exam: Resting ECG HR:93 bpm ECG Measurements Heart Rate 93 AXES ND 166 P 25 QRSd 62 QRS -39 QT 354 T 7 QTc 440 Conclusion Normal sinus rhythm Left axis deviation Low voltage QRS Inferior infarct, age undetermined Possible Anterolateral infarct, age undetermined Abnormal ECG Electronically signed by : Doug Polk MD 07/02/2021 17:56:47
--- NOTE | 2021-07-01 17:24 | XR_ITS ---
PROCEDURE INFORMATION: Exam: XR Chest Exam date and time: 07/01/2021 5:24 PM Age: 60 years old Clinical indication: Shortness of breath; Additional info: SOB TECHNIQUE: Imaging protocol: XR of the chest. Views: 1 view. COMPARISON: CR [id number] XR chest portable 10/15/2018 4:22 PM FINDINGS: Lungs: Hypoventilatory exam. Suboptimal positioning. Left basilar opacities vague. Pleural spaces: Vague left basilar opacity Heart/Mediastinum: Unremarkable. No cardiomegaly. Bones/joints: Unremarkable. IMPRESSION: Vague left basilar opacity could represent effusion, atelectasis, and/or infiltrate
[2021-07-01 17:38] LABS: Basophils # 0.1 K/mm3 (0-0.2); Basophils % 0.4 % (0.1-2.0); Eosinophils # 0.2 K/mm3 (0.0-0.4); Hematocrit 36.7 % (42.0-52.0); Hemoglobin 11.8 g/dL (14.1-18.0); Lymphocytes # 1.8 K/mm3 (0.7-4.5); Lymphocytes % 11.1 % (10-50); Mean Corpuscular HGB Conc 32.1 g/dL (31.8-35.4); Mean Corpuscular Hemoglobin 31.1 pg (27.0-31.2); Mean Corpuscular Volume 96.8 fl (80-94); Mean Platelet Volume 9.6 fl (7.4-10.4); Monocytes # 1.3 K/mm3 (0.1-1.0); Monocytes % 7.7 % (1.7-9.3); Neutrophils % 79.8 % (37.0-80.0); Platelet Count 333 K/mm3 (142-424); Red Blood Count 3.79 M/mm3 (4.60-6.20); Red Cell Distribution Width 15.4 % (11.5-17.5); White Blood Count 16.3 K/mm3 (4.8-10.8)
[2021-07-01 17:44] LABS: Lactic Acid 1.9 mmol/L (0.7-2.1)
[2021-07-01 17:45] LABS: Microscopic, Urine URINE MICROSCOPIC (MICROSCOPIC)
[2021-07-01 17:47] LABS: MANUAL DIFFERENTIAL MANUAL DIFFERENTIAL (MANUAL DIFF)
[2021-07-01 18:00] LABS: Appearance,Urine CLEAR (Clear); Bilirubin,Urine Negative (Negative); Blood, Urine Negative (Negative); Color,Urine YELLOW (Yellow); Glucose,Urine (UA) Negative (Negative); Ketones,Urine TRACE (Negative); Leukocyte Esterase,Urine TRACE (Negative); Nitrate,Urine Negative (Negative); Protein,Urine Negative (Negative); Specific Gravity, Urine 1.025 (1.005-1.030); Urobilinogen,Urine 0.2 EU/dl (0.2)
[2021-07-01 18:01] LABS: Troponin I < 0.01 ng/ml (0.00-0.034)
[2021-07-01 18:05] LABS: VBG Base Excess -9.7 mmol/L (-2.4-2.3); VBG HCO3 15.9 mmol/L (23-30); VBG Oxygen Saturation 75.8 % (50-70); VBG PCO2 29.8 mmol/L (35-51); VBG PH 7.35 mmol/L (7.31-7.41); VBG PO2 36.6 mmol/L (28-40); VBG Total CO2 16.8 mmol/L (23-27)
[2021-07-01 18:21] LABS: Coronavirus 19, PCR Not Detected (NotDetected); Influenza A, PCR Not Detected (NotDetected); Influenza B, PCR Not Detected (NotDetected)
[2021-07-01 18:23] LABS: Eosinophils % 1 % (0-3); Lymphocytes % 11 % (10-50); Monocytes % 5 % (2-9); Neutrophils % 82 % (42-76); Platelet Estimate Normal; Total Cells Counted 100
--- NOTE | 2021-07-01 18:31 | PC.NURSE ---
pressure bag applied to fluids
[2021-07-01 18:34] LABS: Bacteria,Urine Trace /lpf
[2021-07-01 19:13] LABS: INR 1.31 (0.9-1.1)
--- NOTE | 2021-07-01 19:14 | PC.NURSE ---
critical result PT 145 reported to
--- NOTE | 2021-07-01 19:31 | PC.NURSE ---
Arterial line placed by , due to emergent placement no consent was signed.
--- NOTE | 2021-07-01 19:33 | PC.NURSE ---
requested patient be deep suctioned due to inability to clear secretions. Respiratory therapist Erika notified.
--- NOTE | 2021-07-01 21:09 | PC.NURSE ---
Patient discontinued Arterial line. Site clean, dry and intact. notified.
[2021-07-01 21:37] LABS: Troponin I < 0.01 ng/ml (0.00-0.034)
--- NOTE | 2021-07-01 21:48 | PC.NURSE ---
Levophed drip was not started on patient .Drip is primed and scanned at bedside should it be necessary. Drip parameter is to keep MAP greated than 65 per md.
--- NOTE | 2021-07-01 22:01 | [facility].EDGENADL ---
ED Disposition Clinical Impression: Septic shock Pneumonia Qualifiers: Pneumonia type: due to unspecified organism Laterality: left Lung location: lower lobe of lung Qualified Code(s): J18.9 - Pneumonia, unspecified organism Disposition: Admitted As Inpatient Condition on Discharge: Undetermined Referrals: Provider,Referral, [Primary Care Provider] - - Critical Care Critical Care Time: Yes Attestation: On 07/01/21, the high probability of a clinically significant, sudden or life threatening deterioration of the following system(s) required my full and direct attention, intervention and personal management. The time I documented below is in addition to time spent performing reported procedures but includes the following listed in this critical care notation. Vital system(s) involved:: Circulatory Failure, Respiratory Failure My critical care processes included: Assessment & monitoring of V/S, Initial and Re-exams, Data Review/Interpretation, Coordinating Care, Medication Orders and management, Documentation Medical Decision Making - Medical Records Medical records reviewed: Yes: I reviewed the patient's medical records. - Mario Inquiry Pt receiving controlled substance: No Vital Signs: 07/01/21 16:49 07/01/21 17:53 07/01/21 18:00 Temperature 99.6 F Temperature Source Rectal Pulse Rate 88 85 Pulse Rate [Right] 90 Respiratory Rate 33 H 26 H 25 H Blood Pressure 81/63 L 72/36 L Blood Pressure [Right Arm] 65/39 L Blood Pressure Mean 65 Blood Pressure Mean [Right Arm] 47 Blood Pressure Source [Right Arm] Manual Cuff/ Doppler 02 Sat by Pulse Oximetry 95 100 98 Oxygen Delivery Method Nasal Cannula Oxygen Flow Rate (LPM) 4 07/01/21 18:10 07/01/21 18:20 07/01/21 18:28 Temperature Temperature Source Pulse Rate 92 H 90 87 Pulse Rate [Right] Respiratory Rate 20 20 20 Blood Pressure 75/45 L 70/28 L 75/52 L Blood Pressure [Right Arm] Blood Pressure Mean 51 42 59 Blood Pressure Mean [Right Arm] Blood Pressure Source [Right Arm] 02 Sat by Pulse Oximetry 96 95 98 Oxygen Delivery Method Oxygen Flow Rate (LPM) 07/01/21 18:31 07/01/21 18:40 07/01/21 18:47 Temperature Temperature Source Pulse Rate 95 H 89 95 H Pulse Rate [Right] Respiratory Rate 22 21 21 Blood Pressure 78/39 L 78/50 L 93/53 L Blood Pressure [Right Arm] Blood Pressure Mean 52 24 61 Blood Pressure Mean [Right Arm] Blood Pressure Source [Right Arm] 02 Sat by Pulse Oximetry 99 99 98 Oxygen Delivery Method Oxygen Flow Rate (LPM) 07/01/21 18:50 07/01/21 19:01 07/01/21 19:10 Temperature Temperature Source Pulse Rate 96 H 61 63 Pulse Rate [Right] Respiratory Rate 19 22 24 Blood Pressure 84/42 L 110/61 74/47 L Blood Pressure [Right Arm] Blood Pressure Mean 57 73 56 Blood Pressure Mean [Right Arm] Blood Pressure Source [Right Arm] 02 Sat by Pulse Oximetry 99 99 99 Oxygen Delivery Method Oxygen Flow Rate (LPM) 07/01/21 19:20 07/01/21 19:31 07/01/21 19:40 Temperature Temperature Source Pulse Rate 87 90 92 H Pulse Rate [Right] Respiratory Rate 22 25 H 26 H Blood Pressure 78/48 L 90/57 L 93/58 L Blood Pressure [Right Arm] Blood Pressure Mean 56 68 68 Blood Pressure Mean [Right Arm] Blood Pressure Source [Right Arm] 02 Sat by Pulse Oximetry 99 100 100 Oxygen Delivery Method Oxygen Flow Rate (LPM) 07/01/21 20:00 07/01/21 20:10 07/01/21 20:20 Temperature Temperature Source Pulse Rate 92 H Pulse Rate [Right] Respiratory Rate 20 22 22 Blood Pressure 100/52 L 95/53 L 95/53 L Blood Pressure [Right Arm] Blood Pressure Mean Blood Pressure Mean [Right Arm] Blood Pressure Source [Right Arm] 02 Sat by Pulse Oximetry Oxygen Delivery Method Oxygen Flow Rate (LPM) 07/01/21 20:40 Temperature Temperature Source Pulse Rate Pulse Rate [Right] Respiratory Rate 22 Blood Pressure 8
--- NOTE | 2021-07-01 22:50 | PC.NURSE ---
Levophed drip started at 2200 at rate of 0.5mcg/min. Titrated to 0.7mcg/min at 2250
[2021-07-02] VITALS (16 sets, daily range): BP systolic 95–123; BP diastolic 49–83; PULSE 92–142; RESP 16–22; TEMP 36.4–36.7; O2SAT 90–97; BMI 37.8; BMI 37.4
--- NOTE | 2021-07-02 00:02 | PC.NURSE ---
pt arrived to floor via stretcher at this time
[2021-07-02 00:40] LABS: Troponin I < 0.01 ng/ml (0.00-0.034)
[2021-07-02 06:57] LABS: POC Glucose,Bedside 95 (70-110)
--- NOTE | 2021-07-02 07:07 | HMH.HP ---
*Admission Date: 07/01/21 *Chief complaint: Malaise, weakness, altered level of consciousness *History of present illness: 60-year-old male with diagnosed developmental delay was brought to the emergency department from [facility] after an overall decline in his physical condition over a 2 to 3-day period with subsequent altered level of consciousness. I did receive some history from staff at the facility. Patient began feeling bad approximately 3 days ago. Chest x-ray and labs were done at the facility due to a mild cough. Labs were normal. Chest x-ray report was not available during my discussion with staff. Patient was started on azithromycin. Patient's condition continued to slowly deteriorate until the point where he became pale and glassy eyed with staff unable to detect a blood pressure. Patient also developed increased rhonchi and this is when EMS was called. Patient was transported to the emergency department. Patient was found to be hypotensive which responded to fluid boluses. Patient was found to have left lower lobe pneumonia and was started on broad-spectrum antibiotic coverage. Patient's blood pressures improved in the emergency department. After admission to the floor patient became mildly hypotensive again and was started on Levophed briefly which has already been discontinued this morning. When communicating with the patient he presently communicates by nodding his head yes or no. Patient states he is in pain, he became choked on food at the facility, he confirms shortness of breath, and confirms feeling poorly. [facility] History I have reviewed the patient's past medical history: Yes Medical History: Reports:: Anxiety, Congestive Heart Failure, Diabetes Mellitus Type 2, Hyperlipidemia, Hypertension Denies:: Diabetes Mellitus Type 1 *Have you ever received a pneumonia vaccine?: Yes *Have you received a flu vaccine this season?: Yes Other Medical History: Reports: Anemia Comment:: Other medical history includes aspiration, developmental delay with nursing facility staff describing him as like a 6 or 7-year-old Other Surgeries: Yes: No Previous Surgery - *Social History Smoking Status: Unknown if ever smoked Tobacco Type: cigars Alcohol Intake: never Alcohol Intake Frequency:: other Substance Use Type: denies use *Occupational Status:: disabled Housing: skilled nursing *Travel in the last 8 weeks: None - Psychiatric History Pschychiatric History:: Reports:: Anxiety Family Hx:: Unable to obtain Review of Systems - Review of Systems Review of systems:: unable to obtain Meds Home Medications Medication Instructions Recorded Confirmed Type Acetaminophen [Acetaminophen Extra 1,000 mg PO TID 02/19/18 09/22/18 History Strength] Fenofibrate,Micronized [Tricor 134 mg PO HS 02/19/18 09/21/18 History 134mg] Furosemide [Furosemide 40MG tAB*] 40 mg PO DAILY 02/19/18 09/21/18 History L.acidoph,Paracasei, B.lactis 1 tab PO DAILY 02/19/18 09/22/18 History [Probiotic] Lactulose [Lactulose 10gm/15ml 30 ml PO DAILY PRN 02/19/18 09/22/18 History Oral Soln] Loratadine [Claritin] 10 mg PO DAILY 02/19/18 09/21/18 History Lovastatin 40 mg PO HS 02/19/18 09/21/18 History Methylcellulose [Fiber] 500 mg PO DAILY 02/19/18 09/21/18 History Multivitamin with Minerals [Hair, 1 tab PO HS 02/19/18 09/22/18 History Skin and Nails] [place]-3 Fatty Acids [Fish Oil 1,000 mg PO BID 02/19/18 09/21/18 History Concentrate] Pioglitazone HCl 15 mg PO DAILY 02/19/18 09/21/18 History carvediloL [Carvedilol 12.5mg Tab] 12.5 mg PO BID 02/19/18 09/21/18 History lisinopriL [Lisinopril 5mg 5 mg PO BID 02/19/18 09/21/18 History Tablet] risperiDONE [Risperidone] 2 mg PO BID 02/19/18 09/21/18 History Chlorhexidine Gluconate [Peridex] 15 ml MM BID 09/21/18 09/21/18 History Divalproex Sodium [Depakote 250 mg PO TID 09/21/18 09/22/18 History Sprinkle 125mg capsule] diazePAM [Valium 2mg tablet] 2 mg PO BID
[2021-07-02 07:39] LABS: Chloride 105 mmol/L (98-107); Potassium 5.5 mmoL/L (3.5-5.1); Sodium 138 mmol/L (136-145)
[2021-07-02 07:41] LABS: Blood Urea Nitrogen 40 mg/dl (9-20); Creatinine Clearance Estimated 41 mL/min (50-200); Estimated Glomerular Filt Rate 27 ml/min (>60); GFR (African American) 32 ML/MIN (>60)
[2021-07-02 07:42] LABS: Alanine Aminotransferase 41 U/L (12-78); Albumin Level 2.4 g/dl (3.5-5.0); Albumin/Globulin Ratio 0.8 (1.1-1.8); Alkaline Phosphatase 142 U/L (38-126); Anion Gap 23.5 mEq/L (5-15); Aspartate Amino Transferase 53 U/L (17-59); Bilirubin,Total 0.2 mg/dl (0.2-1.3); Calcium 8.4 mg/dl (8.4-10.2); Carbon Dioxide 15 mmol/L (22.0-30.0); Globulin 3.2 g/dL (1.3-3.2); Glucose 106 mg/dl (74-100); Total Protein,Serum 5.6 g/dl (6.3-8.2)
--- NOTE | 2021-07-02 07:43 | P.CONPHA_ITS ---
[facility] Pharmacy VTE Monitoring - Patient Demographics Admission date: 07/02/21 Report Date: 07/02/21 Time: 07:43 Allergies/Adverse Reactions: Patient Allergies No Known Allergies Allergy (Unverified 09/22/18 08:13) Height: 1.55 m Weight: 90.718 kg Patient Problems: Current Active Problems Type 2 diabetes mellitus (Chronic) Developmental disorder (Chronic) Hypertension (Chronic) - VTE Risk Labs: VTE Related Lab Results Hgb 11.8 g/dL (14.1-18.0) L 07/01/21 17:08 Hct 36.7 % (42.0-52.0) L 07/01/21 17:08 Plt Count 333 K/mm3 (142-424) 07/01/21 17:08 PT 145.0 seconds (10.1-12.5) H 07/01/21 17:08 INR 1.31 (0.9-1.1) H 07/01/21 17:08 Was VTE Risk Assessment Performed: Yes VTE Risk Level: Moderate Risk Clinical Trial Participant: No - Prophylaxis VTE Prophylaxis Ordered?: Yes Types of VTE Prophylaxis: TEDS Knee High
[2021-07-02 07:51] LABS: NT Pro Brain Natriuretic Pep. 2730 pg/mL (0-125)
[2021-07-02 08:07] LABS: Basophils # 0.1 K/mm3 (0-0.2); Basophils % 0.3 % (0.1-2.0); Eosinophils % 0.1 % (0.1-12.0); Hematocrit 35.4 % (42.0-52.0); Hemoglobin 11.1 g/dL (14.1-18.0); Lymphocytes # 1.9 K/mm3 (0.7-4.5); Mean Corpuscular HGB Conc 31.3 g/dL (31.8-35.4); Mean Corpuscular Hemoglobin 30.6 pg (27.0-31.2); Mean Corpuscular Volume 97.6 fl (80-94); Mean Platelet Volume 8.7 fl (7.4-10.4); Monocytes # 1.7 K/mm3 (0.1-1.0); Monocytes % 8.9 % (1.7-9.3); Neutrophils # 15.2 K/mm3 (1.8-7.8); Neutrophils % 80.7 % (37.0-80.0); Platelet Count 327 K/mm3 (142-424); Red Blood Count 3.63 M/mm3 (4.60-6.20); Red Cell Distribution Width 15.6 % (11.5-17.5); White Blood Count 18.9 K/mm3 (4.8-10.8)
--- NOTE | 2021-07-02 08:08 | HMH.PHACONS ---
- Pharmacy Consult Date: 07/02/21 Time: 08:08 Referring provider: DR. COTTO Reason for Consult:: VANCOMYCIN DOSING Allergies and ADEs:: Allergies Allergy/AdvReac Type Severity Reaction Status Date / Time No Known Allergies Allergy Unverified 09/22/18 08:13 Home Medications:: Home Medications Medication Instructions Recorded Confirmed Type Acetaminophen [Acetaminophen Extra 1,000 mg PO TID 02/19/18 09/22/18 History Strength] Fenofibrate,Micronized [Tricor 134 mg PO HS 02/19/18 09/21/18 History 134mg] Furosemide [Furosemide 40MG tAB*] 40 mg PO DAILY 02/19/18 09/21/18 History L.acidoph,Paracasei, B.lactis 1 tab PO DAILY 02/19/18 09/22/18 History [Probiotic] Lactulose [Lactulose 10gm/15ml 30 ml PO DAILY PRN 02/19/18 09/22/18 History Oral Soln] Loratadine [Claritin] 10 mg PO DAILY 02/19/18 09/21/18 History Lovastatin 40 mg PO HS 02/19/18 09/21/18 History Methylcellulose [Fiber] 500 mg PO DAILY 02/19/18 09/21/18 History Multivitamin with Minerals [Hair, 1 tab PO HS 02/19/18 09/22/18 History Skin and Nails] [place]-3 Fatty Acids [Fish Oil 1,000 mg PO BID 02/19/18 09/21/18 History Concentrate] Pioglitazone HCl 15 mg PO DAILY 02/19/18 09/21/18 History carvediloL [Carvedilol 12.5mg Tab] 12.5 mg PO BID 02/19/18 09/21/18 History lisinopriL [Lisinopril 5mg 5 mg PO BID 02/19/18 09/21/18 History Tablet] risperiDONE [Risperidone] 2 mg PO BID 02/19/18 09/21/18 History Chlorhexidine Gluconate [Peridex] 15 ml MM BID 09/21/18 09/21/18 History Divalproex Sodium [Depakote 250 mg PO TID 09/21/18 09/22/18 History Sprinkle 125mg capsule] diazePAM [Valium 2mg tablet] 2 mg PO BID 09/21/18 09/21/18 History Acetaminophen 1,000 mg PO Q6HP PRN 09/22/18 09/22/18 History Ketoconazole [Nizoral] 1 applicatio TOPICAL [place] 09/22/18 09/22/18 History Metformin HCl [Metformin HCl ER] 500 mg PO BID 09/22/18 09/22/18 History PARoxetine HCL [Paxil] 40 mg PO DAILY 09/22/18 09/22/18 History Ferrous Sulfate [Ferrous Sulfate 325 mg PO BID #60 tab 09/28/18 Rx 325mg Tablet] Potassium Chloride [K-Tab ER 10 10 meq PO BID #0 09/28/18 09/22/18 Rx mEq] levoFLOXacin [Levaquin 500mg 500 mg PO DAILY #3 tab 09/28/18 Rx tab] Height: 1.55 m Weight: 90.718 kg Laboratory Results:: Laboratory Results - last 24 hr 07/01/21 17:08: WBC 16.3 H, RBC 3.79 L, Hgb 11.8 L, Hct 36.7 L, MCV 96.8 H, MCH 31.1, MCHC 32.1, RDW 15.4, Plt Count 333, MPV 9.6, Neut % (Auto) 79.8, Lymph % (Auto) 11.1, [place] % (Auto) 7.7, Eos % (Auto) 1.0, Baso % (Auto) 0.4, Neut # (Auto) 13.0 H, Lymph # (Auto) 1.8, [place] # (Auto) 1.3 H, Eos # (Auto) 0.2, Baso # (Auto) 0.1, Total Counted 100, Neutrophils % (Manual) 82 H, Band Neutrophils % 1.0, Lymphocytes % (Manual) 11, Monocytes % (Manual) 5, Eosinophils % (Manual) 1, Platelet Estimate Normal 07/01/21 17:08: PT 145.0 H, INR 1.31 H 07/01/21 17:08: Troponin I < 0.01 07/01/21 17:08: Lactate 1.9 07/01/21 17:24: VBG pH 7.35, VBG pCO2 29.8 L, VBG pO2 36.6, VBG HCO3 15.9 L, VBG Total CO2 16.8 L, VBG O2 Saturation 75.8 H, VBG Base Excess -9.7 L 07/01/21 17:29: Urine Color Yellow, Urine Appearance Clear, Urine pH 5.0, Ur Specific [place] 1.025, Urine Protein Negative, Urine Glucose (UA) Negative, Urine Ketones Trace, Urine Blood Negative, Urine Nitrate Negative, Urine Bilirubin Negative, Urine Urobilinogen 0.2, Ur Leukocyte Esterase Trace, Urine RBC 3-5, Urine WBC 5-10, Ur Squamous Epith Cells 3-5, Urine Bacteria Trace 07/01/21 18:08: SARS-CoV-2 (PCR) Not detected, Influenza A Untype (PCR) Not detected, Influenza Type B (PCR) Not detected 07/01/21 20:45: Troponin I < 0.01 07/01/21 23:50: Troponin I < 0.01 07/02/21 06:33: POC Glucose 95 07/02/21 07:06: Sodium 138, Potassium 5.5 H, Chloride 105, Carbon Dioxide 15 L, Anion Gap 23.5 H, BUN 40 H, Creatinine 2.50 H, Estimated Creat Clear 41, Estimated GFR 27 L, Est GFR ( Amer) 32 L, Glucose 106 H, Calcium 8.4, Total Bilirubin 0.2, AST 53, ALT 41, Alkaline Phosphatase 142 H, Total
[2021-07-02 08:24] LABS: Procalcitonin 2.53 ng/mL (0.0-2.0)
[2021-07-02 08:49] LABS: MANUAL DIFFERENTIAL MANUAL DIFFERENTIAL (MANUAL DIFF)
--- NOTE | 2021-07-02 08:57 | PC.NURSE ---
Levophed gtt stopped @ 0230.
[2021-07-02 09:12] LABS: Lymphocytes % 7 % (10-50); Monocytes % 11 % (2-9); Neutrophils % 82 % (42-76); Total Cells Counted 100
[2021-07-02 09:13] LABS: Platelet Estimate Normal; RBC Morphology Normal
--- NOTE | 2021-07-02 09:14 | PC.NURSE ---
MUNDO Sapp called and stated pt out of step down at this time. Admissions called to change status.
--- NOTE | 2021-07-02 09:32 | FL_ITS ---
PROCEDURE: FL BARIUM SWALLOW MODIFIED CLINICAL INDICATION: Evaluate for aspiration COMPARISON: No exams were available for comparison TECHNIQUE: Patient administered varying consistencies of barium contrast, while viewed in lateral position under real-time fluoroscopy with cine recording. FLUOROSCOPY TIME:1.3 minutes The study was performed in conjunction with speech pathologist. Please see that report & recommendations. FINDINGS: Patient was given varying consistencies of barium. There is a moderate amount of stasis within the vallecula and piriform sinuses. Aspiration noted with purree. There are prominent anterior osteophytes at C4-C5 and C6.. The patient was only given honey appear a consistency. IMPRESSION: Aspiration with purree with moderate stasis. Please see speech pathologist report and recommendations. Dictated by: Lars Burgos MD 07/03/2021 12:05 Lars Burgos MD in [place] 07/03/2021 12:05
--- NOTE | 2021-07-02 09:40 | HMH.SLDYSPHA ---
Speech & Language Evaluation Speech/Language Dysphagia Evaluation Start: 07/02/21 09:34 Freq: ONCE Status: Active Protocol: Document 07/02/21 09:35 SUNSHINE (Rec: 07/02/21 09:40 SUNSHINE [id number]) Dysphagia Assess/Goals/Plan Assessment Date of Evaluation: 07/02/21 Evaluation Type Initial Certification Assessment/Problems Dysphagia Does Patient Qualify for Service Yes Qualify/Failure Comment Patient requires a MBS to determine if aspiration is occuring. Goals will be determined based on those results. Recommendations PHYSICIAN CERTIFICATION: The specified therapy services are required, authorized, and reviewed every 30 days. Diet Recommendations NPO SL Swallow Guidelines Crush meds as allowed* Plan Pt/Guardian verbally ack understanding Yes: RN and CM notified of dx/prognosis/goals G -code Required No Speech & Language HPI Language Primary Language Italian General Information General Current Food Consistancy NPO Dentition Good Dentition Oxygen Status Nasal Cannula Facial Symmetry Symmetrical Ability to Follow Directions Good Communication Ability Moderate Impairment Dysphagia:Food Presentation Evaluation Food Type Pureed,Liquid,Pudding Normal/Thin Liquid Response Unable to suck straw,Coughing after swallow [place] Consistency Liquid Response Coughing after swallow Honey Consistency Liquid Response Coughing after swallow Pudding Consistency Liquid Response Coughing after swallow Dysphagia Evaluation Pureed Food Coughing after swallow Behavior Response Dysphagia Evaluation Summary Mr. Umana was given the following consistencies: thins via straw and open cup, nectar, honey, pudding, and pureed. Mr. Umana could not suck from a straw for thin liquid intake. He coughed with all consistencies. A MBS is recommended to determine least restrictive diet and if aspiration is occuring. Goals will be determined based on MBS results. Stroke Dysphagia Assessment PHYSICIAN CERTIFICATION: I certify the specified therapy services for Charli Umana are required, authorized, and reviewed every 30 days.
[2021-07-02 11:27] LABS: POC Glucose,Bedside 127 (70-110)
--- NOTE | 2021-07-02 14:53 | HMH.SLMBS2 ---
Speech & Language Evaluation Speech/Language Mod Barium Swallow Start: 07/02/21 09:32 Freq: ONCE Status: Complete Protocol: Document 07/02/21 14:41 SUNSHINE (Rec: 07/02/21 14:53 SUNSHINE [id number]) General Information General Current Food Consistancy NPO Dentition Good Dentition Oxygen Status Room Air Facial Symmetry Symmetrical Ability to Follow Directions Poor Communication Ability Moderate Impairment MBS Recommendations Diet Dietary Recommendations NPO Mod Barium Swallow Impressions Summary and Impressions Oral Phase Impression Moderate Impairment Oral Phase Summary Mr. Umana was given the following consistencies: honey via spoon and pureed via spoon. Moderate buccal stasis cleared with suctioning with honey thick liquids. Pharyngeal Phase Impression Severe Impairment Pharyngeal Phase Summary Mr. Umana exhibited deep penetration to the vocal folds with both honey and pureed consistencies. Bolus residue positioned on top of vocal folds and cleared with cough. Patient has severe mucous in pharynx resulting in increased risk for aspiration on residue. At this time, it is recommended that he remain NPO to allow for antibiotics to clear mucous in pharynx. A repeat MBS is recommended as his overall health improves. Speech/Language MBS Assessment/Goals/Plan Assessment Date of Evaluation: 07/02/21 Evaluation Type Re-Evaluation/Revise POC Assessment/Problems Dysphagia Does Patient Qualify for Service No Qualify/Failure Comment Patient's difficulty following directions limits participation. He will have a repeat MBS when overall health improves. Plan Pt/Guardian verbally ack understanding Yes: Dr. Ramos notified of dx/prognosis/goals G -code Required No Mod Barium Swallow Setup Exam Setup Radiologist Lars Burgos Level of Consciousness Awake,Alert Position (degrees) 90 Mod Barium Swallow-Lat View Textures Lateral View Food Presentation Honey Liquid via Spoon,Pureed Food- Thin Oral Phase Labial Mitzi
--- NOTE | 2021-07-02 14:55 | DIET.NUTRFU ---
Based on swallowing report- coughing with all consistences and unable to suck on straw. Depending on patient wishes TF would be recommended for optimal and director long term care nutrition glucerna 1.2 at 20ml/hr with goal rate of 70ml/yx=[id number]/day, 96.6gm protein and 1296ml free water with flush of 30ml/hr ATC= 690ml or 1986ml total fluid. Consult dietary as needed
[2021-07-02 16:48] LABS: POC Glucose,Bedside 100 (70-110)
[2021-07-02 20:11] LABS: POC Glucose,Bedside 78 (70-110)
[2021-07-03] VITALS (13 sets, daily range): BP systolic 99–133; BP diastolic 55–77; PULSE 70–113; RESP 14–20; TEMP 36.7–37.7; O2SAT 90–99; BMI 44.6
[2021-07-03 06:01] LABS: POC Glucose,Bedside 76 (70-110)
[2021-07-03 07:17] LABS: Basophils % 0.2 % (0.1-2.0); Eosinophils # 0.2 K/mm3 (0.0-0.4); Eosinophils % 1.2 % (0.1-12.0); Hematocrit 33.3 % (42.0-52.0); Hemoglobin 10.6 g/dL (14.1-18.0); Lymphocytes # 1.4 K/mm3 (0.7-4.5); Lymphocytes % 10.3 % (10-50); Mean Corpuscular HGB Conc 31.8 g/dL (31.8-35.4); Mean Corpuscular Hemoglobin 30.5 pg (27.0-31.2); Mean Corpuscular Volume 95.7 fl (80-94); Mean Platelet Volume 8.4 fl (7.4-10.4); Monocytes % 7.7 % (1.7-9.3); Neutrophils # 10.9 K/mm3 (1.8-7.8); Neutrophils % 80.6 % (37.0-80.0); Platelet Count 346 K/mm3 (142-424); Red Blood Count 3.48 M/mm3 (4.60-6.20); Red Cell Distribution Width 16.1 % (11.5-17.5); White Blood Count 13.5 K/mm3 (4.8-10.8)
[2021-07-03 07:18] LABS: Chloride 110 mmol/L (98-107); Potassium 4.9 mmoL/L (3.5-5.1); Sodium 144 mmol/L (136-145)
[2021-07-03 07:20] LABS: Blood Urea Nitrogen 43 mg/dl (9-20)
--- NOTE | 2021-07-03 07:20 | HMH.ACPN2 ---
Internal Medicine - PN: Subj *Date: 07/03/21 *Time: 07:20 Interval history: Patient is able to indicate that he is feeling better today. Cough persists. He has remained afebrile. Patient underwent swallowing evaluation yesterday and remains n.p.o. at this time Exam Vital signs and Labs for Last 24 Hours: Temp Pulse Resp BP Pulse Ox 98.5 F 94 H 16 106/63 L 99 07/03/21 04:57 07/03/21 05:59 07/03/21 04:57 07/03/21 04:57 07/03/21 05:59 Laboratory Results - last 24 hr 07/02/21 07:06: WBC 18.9 H, RBC 3.63 L, Hgb 11.1 L, Hct 35.4 L, MCV 97.6 H, MCH 30.6, MCHC 31.3 L, RDW 15.6, Plt Count 327, MPV 8.7, Neut % (Auto) 80.7 H, Lymph % (Auto) 10.0, [place] % (Auto) 8.9, Eos % (Auto) 0.1, Baso % (Auto) 0.3, Neut # (Auto) 15.2 H, Lymph # (Auto) 1.9, [place] # (Auto) 1.7 H, Eos # (Auto) 0.0, Baso # (Auto) 0.1, Total Counted 100, Neutrophils % (Manual) 82 H, Lymphocytes % (Manual) 7 L, Monocytes % (Manual) 11 H, Platelet Estimate Normal, RBC Morphology Normal 07/02/21 07:06: Sodium 138, Potassium 5.5 H, Chloride 105, Carbon Dioxide 15 L, Anion Gap 23.5 H, BUN 40 H, Creatinine 2.50 H, Estimated Creat Clear 41, Estimated GFR 27 L, Est GFR ( Amer) 32 L, Glucose 106 H, Calcium 8.4, Total Bilirubin 0.2, AST 53, ALT 41, Alkaline Phosphatase 142 H, Total Protein 5.6 L, Albumin 2.4 L, Globulin 3.2, Albumin/Globulin Ratio 0.8 L 07/02/21 07:06: NT-Pro-B Natriuret Pep 2730 H 07/02/21 07:06: Procalcitonin 2.53 H 07/02/21 11:13: POC Glucose 127 H 07/02/21 16:36: POC Glucose 100 07/02/21 19:58: POC Glucose 78 07/03/21 05:39: POC Glucose 76 07/03/21 06:37: Sodium 144, Potassium 4.9, Chloride 110 H I & O for Last 24 hours: Intake & Output 06/30/21 07/01/21 07/02/21 07/03/21 11:59 11:59 11:59 11:59 Intake Total 0 / 0 Output Total 550 / 550 350 / 350 Balance -550 / -550 -350 / -350 Weight 199 lb 15.983 oz 236 lb 1.6 oz Microbiology Reports for the Last 24 Hours: Microbiology 07/02/21 06:40 Sputum - Expectorated Sputum Gram Stain - Final Narrative: Patient appears comfortable. With forced cough patient has audible rhonchi from across the room. Lung exam reveals diminished breath sounds on the left with rhonchi. Right lung is clear and without wheezes. Heart has a regular rate and rhythm. Assessment and Plan (1) Pneumonia Status: Suspected Qualifiers: Pneumonia type: aspiration pneumonia Laterality: left Lung location: lower lobe of lung Qualified Code(s): J18.9 - Pneumonia, unspecified organism Category: Medical Code(s): J18.9 - Pneumonia, unspecified organism (2) Septic shock Status: Resolved Category: Medical Code(s): A41.9 - Sepsis, unspecified organism; R65.21 - Severe sepsis with septic shock (3) Dysphagia causing pulmonary aspiration with swallowing Status: Suspected Category: Medical Code(s): R13.19 - Other dysphagia (4) Developmental disorder Status: Chronic Category: Medical Code(s): F89 - Unspecified disorder of psychological development (5) Hypertension Status: Chronic Category: Medical Code(s): I10 - Essential (primary) hypertension (6) Type 2 diabetes mellitus Status: Chronic Qualifiers: Diabetes mellitus termite helper insulin use: without senior living use Category: Medical Code(s): E11.9 - Type 2 diabetes mellitus without complications (7) Acute kidney injury Status: Acute Category: Medical Code(s): N17.9 - Acute kidney failure, unspecified - Assessment and plan all Dx Assessment and Plan for all problems:: 1. Continue Zosyn and vancomycin for patient's pneumonia. Aspiration is suspected 2. Patient is bordering on hypoglycemic this morning. He remains n.p.o. due to aspiration risk. IV fluids will be changed to D5 half-normal saline with 20 mEq/L of potassium chloride 3. Continue to hold oral medications.
[2021-07-03 07:21] LABS: Alanine Aminotransferase 41 U/L (12-78); Albumin Level 2.2 g/dl (3.5-5.0); Albumin/Globulin Ratio 0.7 (1.1-1.8); Alkaline Phosphatase 131 U/L (38-126); Anion Gap 24.9 mEq/L (5-15); Aspartate Amino Transferase 74 U/L (17-59); Bilirubin,Total 0.2 mg/dl (0.2-1.3); Calcium 8.4 mg/dl (8.4-10.2); Carbon Dioxide 14 mmol/L (22.0-30.0); Creatinine Clearance Estimated 26 mL/min (50-200); Estimated Glomerular Filt Rate 29 ml/min (>60); GFR (African American) 36 ML/MIN (>60); Globulin 3.2 g/dL (1.3-3.2); Glucose 99 mg/dl (74-100); Total Protein,Serum 5.4 g/dl (6.3-8.2)
--- NOTE | 2021-07-03 07:25 | SW/DCPLANNER ---
PATIENT PRESENTED INTO THE HOSPITAL FROM [facility] WITH SEPTIC SHOCK RELATED TO PNEUMONIA.. PATIENT IS ON A MEDICAID BEDHOLD THERE AND WILL RETURN BACK THERE ONCE MEDICALLY READY FOR A DISPOSITION.. HE IS FOLLOWED BY DR MANNING THERE. DISPOSITION UNCERTAIN, CM WILL FOLLOW.
--- NOTE | 2021-07-03 09:38 | HMH.PHAINT ---
Home medications verified with Dangelo Parker and Carlyle العلي
[2021-07-03 12:45] LABS: POC Glucose,Bedside 85 (70-110)
[2021-07-03 16:09] LABS: POC Glucose,Bedside 107 (70-110)
--- NOTE | 2021-07-03 17:35 | PC.NURSE ---
Pt has been pleasant and cooperative this shift. Alert to self. Speech is incomprehensible. GCS is 12. Pt is currently on room air with sats. >90%. Lung sounds reveal expiratory rhonchi. Telemetry reveals ST. 1+ pitting edema noted to extremities. Skin is C/D/I. Abdomen is large, round, soft, and non-tender. F/C is patent and draining clear, yellow urine at bedside to gravity. No BM thus far today. Pt remains NPO and has received oral care Q2H this shift. Pt has also been turned Q2H this shift. FSBS results have been 85 and 107. 20 G peripheral IV in the RT upper arm is patent and infusing D5W 0.45% NS w/ 20 K+ @ 125 ML/HR. VSS. Call light within reach. Will continue to monitor.
[2021-07-03 21:24] LABS: POC Glucose,Bedside 118 (70-110)
[2021-07-04] VITALS (9 sets, daily range): BP systolic 107–147; BP diastolic 68–88; PULSE 62–114; RESP 18–22; TEMP 36.6–37.5; O2SAT 93–98; BMI 44.6
[2021-07-04 06:10] LABS: POC Glucose,Bedside 119 (70-110)
--- NOTE | 2021-07-04 07:00 | HMH.ACPN2 ---
Internal Medicine - PN: Subj *Date: 07/04/21 *Time: 07:00 Interval history: Patient is remained stable over the last 24 hours. He still is unable to clear secretions with loose sounding cough. Patient has been suctioned multiple times overnight Exam Vital signs and Labs for Last 24 Hours: Temp Pulse Resp BP Pulse Ox 97.8 F 103 H 19 125/78 96 07/04/21 04:00 07/04/21 06:15 07/04/21 04:00 07/04/21 04:00 07/04/21 06:15 Laboratory Results - last 24 hr 07/03/21 06:37: WBC 13.5 H D, RBC 3.48 L, Hgb 10.6 L, Hct 33.3 L, MCV 95.7 H, MCH 30.5, MCHC 31.8, RDW 16.1, Plt Count 346, MPV 8.4, Neut % (Auto) 80.6 H, Lymph % (Auto) 10.3, [place] % (Auto) 7.7, Eos % (Auto) 1.2, Baso % (Auto) 0.2, Neut # (Auto) 10.9 H, Lymph # (Auto) 1.4, [place] # (Auto) 1.0, Eos # (Auto) 0.2, Baso # (Auto) 0.0 07/03/21 06:37: Sodium 144, Potassium 4.9, Chloride 110 H, Carbon Dioxide 14 L, Anion Gap 24.9 H, BUN 43 H, Creatinine 2.30 H, Estimated Creat Clear 26, Estimated GFR 29 L, Est GFR ( Amer) 36 L, Glucose 99, Calcium 8.4, Total Bilirubin 0.2, AST 74 H D, ALT 41, Alkaline Phosphatase 131 H, Total Protein 5.4 L, Albumin 2.2 L, Globulin 3.2, Albumin/Globulin Ratio 0.7 L 07/03/21 12:24: POC Glucose 85 07/03/21 15:49: POC Glucose 107 07/03/21 20:55: POC Glucose 118 H 07/04/21 04:37: POC Glucose 119 H I & O for Last 24 hours: Intake & Output 07/01/21 07/02/21 07/03/21 07/04/21 11:59 11:59 11:59 11:59 Intake Total 0 / 0 4053 / 4053 Output Total 550 / 550 350 / 350 750 / 750 Balance -550 / -550 -350 / -350 3303 / 3303 Weight 199 lb 15.983 oz 236 lb 1.6 oz 236 lb 6.4 oz Microbiology Reports for the Last 24 Hours: Microbiology 07/03/21 14:39 Sputum - Expectorated Sputum Gram Stain - Final 07/01/21 17:26 Blood Blood Culture - Preliminary NO GROWTH AFTER 48 HOURS 07/01/21 17:26 Blood Blood Culture - Preliminary NO GROWTH AFTER 48 HOURS 07/02/21 06:40 Sputum - Expectorated Sputum Gram Stain - Final 07/02/21 06:40 Sputum - Expectorated Sputum Sputum Culture - Final Narrative: Patient is comfortable with no increased work of breathing. Lungs overall sound better although rales and rhonchi persist in the left lateral base. Heart has a rapid rate and rhythm. Abdomen is soft. Assessment and Plan (1) Pneumonia Status: Suspected Qualifiers: Pneumonia type: aspiration pneumonia Laterality: left Lung location: lower lobe of lung Qualified Code(s): J18.9 - Pneumonia, unspecified organism Category: Medical Code(s): J18.9 - Pneumonia, unspecified organism (2) Septic shock Status: Resolved Category: Medical Code(s): A41.9 - Sepsis, unspecified organism; R65.21 - Severe sepsis with septic shock (3) Dysphagia causing pulmonary aspiration with swallowing Status: Suspected Category: Medical Code(s): R13.19 - Other dysphagia (4) Developmental disorder Status: Chronic Category: Medical Code(s): F89 - Unspecified disorder of psychological development (5) Hypertension Status: Chronic Category: Medical Code(s): I10 - Essential (primary) hypertension (6) Type 2 diabetes mellitus Status: Chronic Qualifiers: Diabetes mellitus correction insulin use: without alpaca farmer use Category: Medical Code(s): E11.9 - Type 2 diabetes mellitus without complications (7) Acute kidney injury Status: Acute Category: Medical Code(s): N17.9 - Acute kidney failure, unspecified - Assessment and plan all Dx Assessment and Plan for all problems:: 1. Continue Rocephin and Flagyl for suspected aspiration pneumonia. Patient was unable to clear and swallow secretions. Patient will have swallowing evaluation repeated within the next 24 hours as clinically he is improving from his pneumonia 2. Multiple medications are on hold due to patient's acute kidney injury and hypotension. Blood pressure is improving. Patient remains n
[2021-07-04 07:01] LABS: Basophils % 0.4 % (0.1-2.0); Eosinophils # 0.3 K/mm3 (0.0-0.4); Eosinophils % 2.6 % (0.1-12.0); Hematocrit 34.9 % (42.0-52.0); Lymphocytes # 1.3 K/mm3 (0.7-4.5); Lymphocytes % 11.2 % (10-50); Mean Corpuscular HGB Conc 31.6 g/dL (31.8-35.4); Mean Corpuscular Hemoglobin 30.3 pg (27.0-31.2); Mean Corpuscular Volume 95.9 fl (80-94); Mean Platelet Volume 8.3 fl (7.4-10.4); Monocytes % 8.3 % (1.7-9.3); Neutrophils # 9.1 K/mm3 (1.8-7.8); Neutrophils % 77.5 % (37.0-80.0); Platelet Count 393 K/mm3 (142-424); Red Blood Count 3.64 M/mm3 (4.60-6.20); Red Cell Distribution Width 16.3 % (11.5-17.5); White Blood Count 11.7 K/mm3 (4.8-10.8)
[2021-07-04 07:05] LABS: Chloride 115 mmol/L (98-107); Potassium 4.8 mmoL/L (3.5-5.1); Sodium 145 mmol/L (136-145)
--- NOTE | 2021-07-04 07:05 | XR_ITS ---
PROCEDURE: XR CHEST PORTABLE CLINICAL HISTORY: pneumonia progress study, cough, dyspnea COMPARISON: DX SHOULDCMRT XR shoulder RT min 2V from 03/10/2018 CR CXR1VP XR chest portable from 10/15/2018 CR CXR1VP XR chest portable from 10/15/2018 CR XR CHEST PORTABLE from 07/01/2021 FINDINGS: The cardiomediastinal silhouette and pulmonary vascularity are within normal limits. There are low lung volumes with bibasilar atelectasis. Upper lobes are clear. There is deformity of the right humeral head which could be due to old fracture. The humerus is displaced somewhat medially on the AP view. This had a similar appearance on 03/10/2018. IMPRESSION: Bibasilar atelectasis slightly worse Dictated by: Lars Burgos MD 07/04/2021 08:31 Lars Burgos MD in [place] 07/04/2021 08:31
[2021-07-04 07:08] LABS: Anion Gap 18.8 mEq/L (5-15); Blood Urea Nitrogen 40 mg/dl (9-20); Calcium 8.5 mg/dl (8.4-10.2); Carbon Dioxide 16 mmol/L (22.0-30.0); Creatinine Clearance Estimated 37 mL/min (50-200); Estimated Glomerular Filt Rate 45 ml/min (>60); GFR (African American) 54 ML/MIN (>60); Glucose 125 mg/dl (74-100)
--- NOTE | 2021-07-04 07:19 | PC.NURSE ---
No acute changes. Pt has tolerated RA well with sats >90%. Pt has been deep suctioned 1x t/o shift. Q2 turned and oral care provided.
--- NOTE | 2021-07-04 07:26 | SW/DCPLANNER ---
SPOKE WITH DR COTTO THIS MORNING REGARDING THE PLAN FOR THIS PATIENT AND WHEN HE IS GOING TO BE ABLE TO RETURN BACK TO HIS [facility] BED. DR COTTO STATED HIS PNEUMONIA IS GETTING BETTER BUT HE IS NOT MEDICALLY READY TO DISCHARGE AND HE STATED HE DEFINITELY WON'T BE ABLE TO GO [facility].. WILL GIVE UPDATES TO [facility] AND THE PLAN IS TO RETURN THERE ONCE MEDICALLY STABLE TO DO SO....
--- NOTE | 2021-07-04 07:41 | SUR.OPER ---
Pt remains NPO after failed swallow evaluation. Plan is to repeat swallow evaluation within the next 24 hours. Will continue to monitor.
[2021-07-04 11:00] LABS: POC Glucose,Bedside 133 (70-110)
[2021-07-04 15:52] LABS: POC Glucose,Bedside 131 (70-110)
--- NOTE | 2021-07-04 16:24 | PC.NURSE ---
Pt has been pleasant and cooperative this shift. Alert to self. Speech is incomprehensible. GCS is 12. Pt is currently on room air with sats. >90%. Lung sounds reveal expiratory rhonchi. Intermittent, loose cough noted. 1+ pitting edema noted to extremities. Skin is C/D/I. Abdomen is large, round, soft, and non-tender. F/C is patent and draining clear, yellow urine at bedside to gravity. No BM thus far today. Pt remains NPO and has received oral care Q2H this shift. Pt has also been turned Q2H this shift. FSBS results have been 133 and 131. 20 G peripheral IV in the RT upper arm is patent and infusing D5W 0.45% NS w/ 20 K+ @ 75 ML/HR. VSS. Call light within reach. Will continue to monitor.
[2021-07-04 20:29] LABS: POC Glucose,Bedside 110 (70-110)
[2021-07-05] VITALS (8 sets, daily range): BP systolic 125–142; BP diastolic 75–94; PULSE 67–103; RESP 16–24; TEMP 36.6–37.6; O2SAT 92–100; BMI 44.7
--- NOTE | 2021-07-05 05:06 | PC.NURSE ---
No acute changes this shift. Pt has remained on RA with Sats remaining above 90%, Pt has been turned Q2 hours this shift. Price cath at bedside draining clear yellow urine. call richa lynch, will continue to monitor.
[2021-07-05 06:37] LABS: POC Glucose,Bedside 106 (70-110)
--- NOTE | 2021-07-05 07:14 | P.PN_ITS ---
Internal Medicine - PN: Subj *Date: 07/05/21 *Time: 07:14 Interval history: Patient had no events over the last 24 hours. He reports feeling better today than yesterday. He is able to say a few words that are clear. He agrees his cough is improving. Exam Vital signs and Labs for Last 24 Hours: Temp Pulse Resp BP Pulse Ox 97.8 F 83 18 142/94 H 95 07/05/21 04:00 07/05/21 06:44 07/05/21 04:00 07/05/21 04:00 07/05/21 06:44 Laboratory Results - last 24 hr 07/04/21 10:39: POC Glucose 133 H 07/04/21 15:42: POC Glucose 131 H 07/04/21 20:18: POC Glucose 110 07/05/21 05:51: POC Glucose 106 I & O for Last 24 hours: Intake & Output 07/02/21 07/03/21 07/04/21 07/05/21 11:59 11:59 11:59 11:59 Intake Total 0 / 0 4053 / 4053 2542 / 2542 Output Total 550 / 550 350 / 350 750 / 750 650 / 650 Balance -550 / -550 -350 / -350 3303 / 3303 1892 / 1892 Weight 199 lb 15.983 oz 236 lb 1.6 oz 236 lb 6.4 oz 237 lb Narrative: Patient looks comfortable. He remains on room air. He is able to swallow saliva this morning. Lungs continue to have rhonchi in the left lung but they are becoming less audible. There are some mixed wheezes. Heart has a regular rate and rhythm. Assessment and Plan (1) Pneumonia Status: Suspected Qualifiers: Pneumonia type: aspiration pneumonia Laterality: left Lung location: lower lobe of lung Qualified Code(s): J18.9 - Pneumonia, unspecified organism Category: Medical Code(s): J18.9 - Pneumonia, unspecified organism (2) Septic shock Status: Resolved Category: Medical Code(s): A41.9 - Sepsis, unspecified organism; R65.21 - Severe sepsis with septic shock (3) Dysphagia causing pulmonary aspiration with swallowing Status: Suspected Category: Medical Code(s): R13.19 - Other dysphagia (4) Developmental disorder Status: Chronic Category: Medical Code(s): F89 - Unspecified disorder of psychological development (5) Hypertension Status: Chronic Category: Medical Code(s): I10 - Essential (primary) hypertension (6) Type 2 diabetes mellitus Status: Chronic Qualifiers: Diabetes mellitus shelter insulin use: without shelter use Category: Medical Code(s): E11.9 - Type 2 diabetes mellitus without complications (7) Acute kidney injury Status: Acute Category: Medical Code(s): N17.9 - Acute kidney failure, unspecified - Assessment and plan all Dx Assessment and Plan for all problems:: 1. Continue antibiotics for aspiration pneumonia. 2. Speech evaluation today for swallowing safety 3. Continue D5 half-normal saline with potassium chloride
[2021-07-05 07:27] LABS: Basophils % 0.4 % (0.1-2.0); Eosinophils # 0.2 K/mm3 (0.0-0.4); Eosinophils % 1.6 % (0.1-12.0); Hematocrit 32.8 % (42.0-52.0); Hemoglobin 10.5 g/dL (14.1-18.0); Lymphocytes # 1.5 K/mm3 (0.7-4.5); Lymphocytes % 12.2 % (10-50); Mean Corpuscular HGB Conc 31.9 g/dL (31.8-35.4); Mean Corpuscular Hemoglobin 30.8 pg (27.0-31.2); Mean Corpuscular Volume 96.4 fl (80-94); Mean Platelet Volume 8.5 fl (7.4-10.4); Neutrophils # 9.6 K/mm3 (1.8-7.8); Neutrophils % 77.9 % (37.0-80.0); Platelet Count 365 K/mm3 (142-424); Red Cell Distribution Width 16.5 % (11.5-17.5); White Blood Count 12.3 K/mm3 (4.8-10.8)
[2021-07-05 07:33] LABS: Chloride 116 mmol/L (98-107); Potassium 4.5 mmoL/L (3.5-5.1); Sodium 147 mmol/L (136-145)
[2021-07-05 07:36] LABS: Blood Urea Nitrogen 35 mg/dl (9-20); Calcium 8.5 mg/dl (8.4-10.2); Carbon Dioxide 17 mmol/L (22.0-30.0); Creatinine Clearance Estimated 50 mL/min (50-200); Estimated Glomerular Filt Rate 62 ml/min (>60); GFR (African American) 75 ML/MIN (>60); Glucose 112 mg/dl (74-100)
[2021-07-05 07:37] LABS: Anion Gap 18.5 mEq/L (5-15)
--- NOTE | 2021-07-05 11:10 | FL_ITS ---
PROCEDURE: FL BARIUM SWALLOW MODIFIED CLINICAL INDICATION: r/o aspiration COMPARISON: No exams were available for comparison TECHNIQUE: Patient administered varying consistencies of barium contrast, while viewed in lateral position under real-time fluoroscopy with cine recording. FLUOROSCOPY TIME:4.53 minutes The study was performed in conjunction with speech pathologist. Please see that report & recommendations. FINDINGS: Patient was given varying consistencies of barium. There was difficulty in the negotiating the swallow. There was penetration into the vocal folds with nectar and honey consistency. There is moderate stasis within the vallecular region and pharynx. No obvious tracheal aspiration.. IMPRESSION: Abnormal modified barium swallow with vestibular penetration with nectar and honey consistency with along with a moderate amount of pharyngeal stasis. Please see speech pathologist report and recommendations. Dictated by: Lars Burgos MD 07/05/2021 18:20 Lars Burgos MD in [place] 07/05/2021 18:20
--- NOTE | 2021-07-05 19:38 | PC.NURSE ---
no acute changes this shift. tolerating ra well. q2 turn and oral care performed. fitzpatrick cath still in place. incontinent of bowel.
[2021-07-05 20:41] LABS: POC Glucose,Bedside 106 (70-110)
[2021-07-06] VITALS: BP 123/76; PULSE 93; RESP 14; TEMP 36.8; O2SAT 96
[2021-07-06 04:00] VITALS: BP 126/73; PULSE 83; RESP 18; TEMP 37.2; O2SAT 98
[2021-07-06 05:27] VITALS: BMI 101.4
[2021-07-06 06:00] VITALS: PULSE 105; O2SAT 96
[2021-07-06 06:22] LABS: POC Glucose,Bedside 87 (70-110)
[2021-07-06 07:19] LABS: Basophils % 0.2 % (0.1-2.0); Eosinophils # 0.3 K/mm3 (0.0-0.4); Eosinophils % 2.6 % (0.1-12.0); Hematocrit 33.9 % (42.0-52.0); Hemoglobin 11.2 g/dL (14.1-18.0); Lymphocytes # 1.5 K/mm3 (0.7-4.5); Mean Corpuscular Hemoglobin 30.8 pg (27.0-31.2); Mean Corpuscular Volume 93.4 fl (80-94); Mean Platelet Volume 9.1 fl (7.4-10.4); Monocytes # 0.9 K/mm3 (0.1-1.0); Monocytes % 7.8 % (1.7-9.3); Neutrophils # 8.9 K/mm3 (1.8-7.8); Neutrophils % 76.4 % (37.0-80.0); Platelet Count 357 K/mm3 (142-424); Red Blood Count 3.63 M/mm3 (4.60-6.20); Red Cell Distribution Width 16.7 % (11.5-17.5); White Blood Count 11.7 K/mm3 (4.8-10.8)
[2021-07-06 07:22] LABS: Chloride 117 mmol/L (98-107); Potassium 3.9 mmoL/L (3.5-5.1); Sodium 148 mmol/L (136-145)
[2021-07-06 07:25] LABS: Anion Gap 18.9 mEq/L (5-15); Blood Urea Nitrogen 29 mg/dl (9-20); Calcium 8.3 mg/dl (8.4-10.2); Carbon Dioxide 16 mmol/L (22.0-30.0); Creatinine Clearance Estimated 60 mL/min (50-200); Estimated Glomerular Filt Rate 77 ml/min (>60); GFR (African American) 93 ML/MIN (>60); Glucose 97 mg/dl (74-100)
[2021-07-06 07:47] VITALS: BP 109/58; PULSE 94; RESP 18; TEMP 36.6; O2SAT 96
--- NOTE | 2021-07-06 08:33 | HMH.ACPN2 ---
Internal Medicine - PN: Subj *Date: 07/06/21 *Time: 08:33 Interval history: Patient has no complaints this morning. Diet was advanced yesterday to a pur?ed diet with pudding thick liquids. Patient has tolerated this without aspiration. Exam Vital signs and Labs for Last 24 Hours: Temp Pulse Resp BP Pulse Ox 97.8 F 94 H 18 109/58 L 96 07/06/21 07:47 07/06/21 07:47 07/06/21 07:47 07/06/21 07:47 07/06/21 07:47 Laboratory Results - last 24 hr 07/05/21 20:29: POC Glucose 106 07/06/21 06:13: POC Glucose 87 07/06/21 06:20: WBC 11.7 H, RBC 3.63 L, Hgb 11.2 L, Hct 33.9 L, MCV 93.4, MCH 30.8, MCHC 33.0, RDW 16.7, Plt Count 357, MPV 9.1, Neut % (Auto) 76.4, Lymph % (Auto) 13.0, [place] % (Auto) 7.8, Eos % (Auto) 2.6, Baso % (Auto) 0.2, Neut # (Auto) 8.9 H, Lymph # (Auto) 1.5, [place] # (Auto) 0.9, Eos # (Auto) 0.3, Baso # (Auto) 0.0 07/06/21 06:20: Sodium 148 H, Potassium 3.9, Chloride 117 H, Carbon Dioxide 16 L, Anion Gap 18.9 H, BUN 29 H, Creatinine 1.00, Estimated Creat Clear 60, Estimated GFR 77, Est GFR ( Amer) 93 D, Glucose 97, Calcium 8.3 L I & O for Last 24 hours: Intake & Output 07/03/21 07/04/21 07/05/21 07/06/21 11:59 11:59 11:59 11:59 Intake Total 4053 / 4053 2542 / 2542 1390 / 1390 Output Total 350 / 350 750 / 750 650 / 650 600 / 600 Balance -350 / -350 3303 / 3303 1892 / 1892 790 / 790 Weight 236 lb 1.6 oz 236 lb 6.4 oz 237 lb 537 lb 4.264 oz Microbiology Reports for the Last 24 Hours: Microbiology 07/03/21 14:39 Sputum - Expectorated Sputum Gram Stain - Final 07/03/21 14:39 Sputum - Expectorated Sputum Sputum Culture - Preliminary Narrative: Patient is awake and alert. He can answer some questions and speech is clear and coherent. Lungs have improvement although persistent rhonchi in the left lateral lung base. Heart has a regular rate and rhythm. Assessment and Plan (1) Pneumonia Status: Suspected Qualifiers: Pneumonia type: aspiration pneumonia Laterality: left Lung location: lower lobe of lung Qualified Code(s): J18.9 - Pneumonia, unspecified organism Category: Medical Code(s): J18.9 - Pneumonia, unspecified organism (2) Septic shock Status: Resolved Category: Medical Code(s): A41.9 - Sepsis, unspecified organism; R65.21 - Severe sepsis with septic shock (3) Dysphagia causing pulmonary aspiration with swallowing Status: Suspected Category: Medical Code(s): R13.19 - Other dysphagia (4) Developmental disorder Status: Chronic Category: Medical Code(s): F89 - Unspecified disorder of psychological development (5) Hypertension Status: Chronic Category: Medical Code(s): I10 - Essential (primary) hypertension (6) Type 2 diabetes mellitus Status: Chronic Qualifiers: Diabetes mellitus vermin exterminator insulin use: without [facility] use Category: Medical Code(s): E11.9 - Type 2 diabetes mellitus without complications (7) Acute kidney injury Status: Acute Category: Medical Code(s): N17.9 - Acute kidney failure, unspecified - Assessment and plan all Dx Assessment and Plan for all problems:: 1. DC IV fluids this morning. As long as patient does not become hypoglycemic he will be discharged back to [facility] later today
--- NOTE | 2021-07-06 08:34 | HMH.DCSUM ---
General - General Admission date:: 07/01/21 Discharge date: 07/06/21 HPI HPI: 60-year-old male with diagnosed developmental delay was brought to the emergency department from [facility] after an overall decline in his physical condition over a 2 to 3-day period with subsequent altered level of consciousness. I did receive some history from staff at the facility. Patient began feeling bad approximately 3 days ago. Chest x-ray and labs were done at the facility due to a mild cough. Labs were normal. Chest x-ray report was not available during my discussion with staff. Patient was started on azithromycin. Patient's condition continued to slowly deteriorate until the point where he became pale and glassy eyed with staff unable to detect a blood pressure. Patient also developed increased rhonchi and this is when EMS was called. Patient was transported to the emergency department. Patient was found to be hypotensive which responded to fluid boluses. Patient was found to have left lower lobe pneumonia and was started on broad-spectrum antibiotic coverage. Patient's blood pressures improved in the emergency department. After admission to the floor patient became mildly hypotensive again and was started on Levophed briefly which has already been discontinued this morning. When communicating with the patient he presently communicates by nodding his head yes or no. Patient states he is in pain, he became choked on food at the facility, he confirms shortness of breath, and confirms feeling poorly. Hospital Course Hospital Course: Patient was admitted with high suspicion for aspiration pneumonia and initially was placed on cefepime, vancomycin, metronidazole. Due to concurrent acute kidney injury antibiotics were adjusted to include Rocephin and metronidazole. Swallowing evaluation was performed the day after admission with patient at high risk for aspiration. Patient was kept n.p.o. and maintained on IV fluids initially with normal saline but once patient was adequately hydrated fluids were adjusted to D5 half-normal saline with potassium. Patient's left lung pneumonia improved a little each day with trending down of his white blood cell count. On July 05 patient underwent repeat swallowing evaluation and diet was advanced to a pur?ed diet with pudding thick liquids. Patient tolerated this diet without aspiration. Patient had become more alert with some coherent speech. Once patient was able to eat and maintain his blood sugars patient was discharged back to [facility]. Patient was diagnosed with septic shock on presentation and this responded to IV fluid boluses and high-volume maintenance fluids Patient had acute kidney injury on admission which corrected with IV fluids and holding of some of his medicines. TABITHA was likely due to the severe hypotension the patient had on presentation. At discharge patient will finish an additional 7 days of Augmentin Objective Vital signs: Temp Pulse Resp BP Pulse Ox 97.8 F 94 H 18 109/58 L 96 07/06/21 07:47 07/06/21 07:47 07/06/21 07:47 07/06/21 07:47 07/06/21 07:47 Results Labs on day of discharge: Labs from last 24 hours 07/06/21 07/06/21 07/06/21 06:20 06:20 06:13 WBC 11.7 H RBC 3.63 L Hgb 11.2 L Hct 33.9 L MCV 93.4 MCH 30.8 MCHC 33.0 RDW 16.7 Plt Count 357 MPV 9.1 Neut % (Auto) 76.4 Lymph % (Auto) 13.0 [place] % (Auto) 7.8 Eos % (Auto) 2.6 Baso % (Auto) 0.2 Neut # (Auto) 8.9 H Lymph # (Auto) 1.5 [place] # (Auto) 0.9 Eos # (Auto) 0.3 Baso # (Auto) 0.0 Sodium 148 H Potassium 3.9 Chloride 117 H Carbon Dioxide 16 L Anion Gap 18.9 H BUN 29 H Creatinine 1.00 Estimated Creat Clear 60 Estimated GFR 77 Est GFR ( Amer) 93 D Glucose 97 POC Glucose 87 Calcium 8.3 L 07/05/21 20:29 WBC
[2021-07-06 17:21] LABS: POC Glucose,Bedside 88 (70-110)
[2021-07-06 17:21] LABS: POC Glucose,Bedside 106 (70-110)
== END 2021-07-06 14:15 | DRG 871 ==
LOC: ER 22:46 → 2ND 23:03
PROVIDERS: Admitting Provider Family Medicine; Emergency Provider Emergency Medicine; Visit Provider Family Medicine
DX: A41.9 Sepsis, unspecified organism (principal); R65.21 Severe sepsis with septic shock; J69.0 Pneumonitis due to inhalation of food and vomit; N17.9 Acute kidney failure, unspecified; Z20.822 Contact with and (suspected) exposure to COVID-19; F89 Unspecified disorder of psychological development; Z79.84 Long term (current) use of oral hypoglycemic drugs; F41.9 Anxiety disorder, unspecified; E11.9 Type 2 diabetes mellitus without complications; E78.5 Hyperlipidemia, unspecified; F25.9 Schizoaffective disorder, unspecified; R13.19 Other dysphagia; I11.0 Hypertensive heart disease with heart failure; I50.9 Heart failure, unspecified
CPT/HCPCS: 36620; 36415; 70371; 71045; 80048; 80053; 81001; 82803; 82962; 83605; 83880; 84145; 84484; 85007; 85025; 85610; 87040; 87070; 87205; 92526; 92610; 92611; 93005; 94640; 94761; 96365; 96366; 96367; 99284; C9803; J2543; U0003; U0005

== ENCOUNTER 2021-07-07 18:13 | Inpatient (IN) | payer MEDICARE, MEDICAID, SELFPAY ==
[2021-07-07] VITALS (16 sets, daily range): BP systolic 74–114; BP diastolic 49–80; PULSE 85–100; RESP 25–39; TEMP 37.1–37.9; O2SAT 88–96; BMI 28.6; BMI 30.8
--- NOTE | 2021-07-07 18:29 | ECG_ITS ---
APPROVED REPORT Exam: Resting ECG HR:99 bpm ECG Measurements Heart Rate 99 AXES MA 152 P 24 QRSd 66 QRS -44 QT 326 T 102 QTc 418 Conclusion Normal sinus rhythm Left axis deviation Inferior infarct, age undetermined Anterolateral infarct, age undetermined Abnormal ECG Electronically signed by : Doug Polk MD 07/08/2021 13:24:34
--- NOTE | 2021-07-07 18:31 | XR_ITS ---
PROCEDURE INFORMATION: Exam: XR Chest Exam date and time: 07/07/2021 6:31 PM Age: 60 years old Clinical indication: Shortness of breath; Additional info: SOA TECHNIQUE: Imaging protocol: XR of the chest. Views: 1 view. COMPARISON: CR XR CHEST PORTABLE 07/04/2021 7:55 AM FINDINGS: Lungs: In the lung bases there is irregular densities which are concerning for pneumonia. Low lung volumes. Pleural spaces: Unremarkable. No pleural effusion. No pneumothorax. Heart/Mediastinum: Unremarkable. No cardiomegaly. Bones/joints: Unremarkable. IMPRESSION: In the lung bases there is airspace disease which could indicate developing pneumonia.
--- NOTE | 2021-07-07 18:43 | HMH.EDGENADL ---
ED Disposition Clinical Impression: Septic shock Aspiration pneumonia Qualifiers: Aspiration pneumonia type: unspecified Laterality: right Lung location: middle lobe of lung Qualified Code(s): J69.0 - Pneumonitis due to inhalation of food and vomit Respiratory failure with hypoxia Qualifiers: Chronicity: acute Qualified Code(s): J96.01 - Acute respiratory failure with hypoxia Disposition: Admitted As Inpatient Condition on Discharge: Critical - Critical Care Critical Care Time: Yes Attestation: On 07/07/21, the high probability of a clinically significant, sudden or life threatening deterioration of the following system(s) required my full and direct attention, intervention and personal management. The time I documented below is in addition to time spent performing reported procedures but includes the following listed in this critical care notation. Vital system(s) involved:: Respiratory Failure, Shock (Septic) My critical care processes included: Assessment & monitoring of V/S, Initial and Re-exams, Data Review/Interpretation, Coordinating Care, Medication Orders and management, Documentation Medical Decision Making - Mario Inquiry Pt receiving controlled substance: No Vital Signs: 07/07/21 18:33 07/07/21 18:57 07/07/21 19:00 Pulse Rate 90 94 H 92 H Respiratory Rate 25 H 38 H 33 H Blood Pressure 81/51 L Blood Pressure Mean 61 02 Sat by Pulse Oximetry 93 L 92 L 94 L Oxygen Delivery Method Vapotherm 07/07/21 19:01 07/07/21 19:02 07/07/21 19:30 Pulse Rate 93 H 91 H 91 H Respiratory Rate 39 H 37 H 34 H Blood Pressure 83/57 L 75/49 L 74/49 L Blood Pressure Mean 64 54 56 02 Sat by Pulse Oximetry 94 L 93 L 94 L Oxygen Delivery Method Nasal Cannula Non-Rebreather 07/07/21 19:41 07/07/21 20:02 Pulse Rate 97 H Respiratory Rate 29 H 30 H Blood Pressure 83/57 L 101/80 L Blood Pressure Mean 64 84 02 Sat by Pulse Oximetry 93 L 94 L Oxygen Delivery Method Nasal Cannula Non-Rebreather Nasal Cannula - Lab Data Lab Results 07/07/21 18:55: WBC 12.2 H, RBC 3.66 L, Hgb 11.2 L, Hct 35.2 L, MCV 96.2 H, MCH 30.7, MCHC 31.9, RDW 16.9, Plt Count 378, MPV 9.2, Neut % (Auto) 83.1 H, Lymph % (Auto) 10.5, [place] % (Auto) 5.1, Eos % (Auto) 0.9, Baso % (Auto) 0.3, Neut # (Auto) 10.1 H, Lymph # (Auto) 1.3, [place] # (Auto) 0.6, Eos # (Auto) 0.1, Baso # (Auto) 0.0 07/07/21 18:55: Sodium 150 H, Potassium 3.9, Chloride 119 H, Carbon Dioxide 17 L, Anion Gap 17.9 H, BUN 25 H, Creatinine 1.20, Estimated Creat Clear 96, Estimated GFR 62, Est GFR ( Amer) 75, Glucose 107 H, Calcium 9.0, Total Bilirubin 0.1 L, AST 42, ALT 39, Alkaline Phosphatase 125, Total Protein 5.7 L, Albumin 2.4 L, Globulin 3.3 H, Albumin/Globulin Ratio 0.7 L 07/07/21 18:55: Lactate 1.4 07/07/21 18:57: Urine Color Yellow, Urine Appearance Clear, Urine pH 5.5, Ur Specific [place] 1.020, Urine Protein Negative, Urine Glucose (UA) Negative, Urine Ketones Negative, Urine Blood Trace-l, Urine Nitrate Negative, Urine Bilirubin Negative, Urine Urobilinogen 0.2, Ur Leukocyte Esterase Negative, Urine RBC 3-5, Urine WBC Occasional, Amorphous Sediment Trace 07/07/21 19:17: SARS-CoV-2 (PCR) Not detected, Influenza A Untype (PCR) Not detected, Influenza Type B (PCR) Not detected 07/07/21 19:33: Specimen Source R/f, O2 % 12, ABG pH 7.35, ABG pCO2 25.4 L, ABG pO2 59.3 L, ABG HCO3 13.8 L, ABG Total CO2 14.6 L, ABG O2 Saturation 91, ABG Base Excess -11.7 L Result diagrams: 07/07/21 18:55 07/07/21 18:55 Orders (Tests/Meds): ED MEDICATIONS Generic Name Dose Route Start Last Admin Trade Name Freq PRN Reason Stop Dose Admin Lactated Ringer's 1,000 mls @ 999 mls/hr 07/07/21 20:15 Lactated Ringer's 1000 Ml Bag IV 07/07/21 21:15 .Q1H1M JEMMA Ceftriaxone Sodium 1 gm/ 50 mls @ 100 mls/hr 07/07/21 20:15 07/07/21 20:21 Sodium Chloride IV 07/21/21 20:14 100 mls/hr Q24H JEMMA Administration Metronidazole 500 mg in 100 mls @ 100 mls/hr 07/07/21 20:15
--- NOTE | 2021-07-07 19:05 | PC.NURSE ---
received report from enrico harper and lamontern
[2021-07-07 19:09] LABS: Basophils % 0.3 % (0.1-2.0); Eosinophils # 0.1 K/mm3 (0.0-0.4); Eosinophils % 0.9 % (0.1-12.0); Hematocrit 35.2 % (42.0-52.0); Hemoglobin 11.2 g/dL (14.1-18.0); Lymphocytes # 1.3 K/mm3 (0.7-4.5); Lymphocytes % 10.5 % (10-50); Mean Corpuscular HGB Conc 31.9 g/dL (31.8-35.4); Mean Corpuscular Hemoglobin 30.7 pg (27.0-31.2); Mean Corpuscular Volume 96.2 fl (80-94); Mean Platelet Volume 9.2 fl (7.4-10.4); Monocytes # 0.6 K/mm3 (0.1-1.0); Monocytes % 5.1 % (1.7-9.3); Neutrophils # 10.1 K/mm3 (1.8-7.8); Neutrophils % 83.1 % (37.0-80.0); Platelet Count 378 K/mm3 (142-424); Red Blood Count 3.66 M/mm3 (4.60-6.20); Red Cell Distribution Width 16.9 % (11.5-17.5); White Blood Count 12.2 K/mm3 (4.8-10.8)
[2021-07-07 19:10] LABS: Chloride 119 mmol/L (98-107); Potassium 3.9 mmoL/L (3.5-5.1)
[2021-07-07 19:12] LABS: Sodium 150 mmol/L (136-145)
[2021-07-07 19:13] LABS: Alanine Aminotransferase 39 U/L (12-78); Albumin Level 2.4 g/dl (3.5-5.0); Albumin/Globulin Ratio 0.7 (1.1-1.8); Alkaline Phosphatase 125 U/L (38-126); Anion Gap 17.9 mEq/L (5-15); Aspartate Amino Transferase 42 U/L (17-59); Bilirubin,Total 0.1 mg/dl (0.2-1.3); Blood Urea Nitrogen 25 mg/dl (9-20); Carbon Dioxide 17 mmol/L (22.0-30.0); Creatinine Clearance Estimated 96 mL/min (50-200); Estimated Glomerular Filt Rate 62 ml/min (>60); GFR (African American) 75 ML/MIN (>60); Globulin 3.3 g/dL (1.3-3.2); Glucose 107 mg/dl (74-100); Total Protein,Serum 5.7 g/dl (6.3-8.2)
[2021-07-07 19:14] LABS: Lactic Acid 1.4 mmol/L (0.7-2.1)
[2021-07-07 19:17] LABS: Microscopic, Urine URINE MICROSCOPIC (MICROSCOPIC)
[2021-07-07 19:21] LABS: Appearance,Urine CLEAR (Clear); Bilirubin,Urine Negative (Negative); Blood, Urine TRACE-L (Negative); Color,Urine YELLOW (Yellow); Glucose,Urine (UA) Negative (Negative); Ketones,Urine Negative (Negative); Leukocyte Esterase,Urine Negative (Negative); Nitrate,Urine Negative (Negative); PH,Urine 5.5 (5.0-8.5); Protein,Urine Negative (Negative); Urobilinogen,Urine 0.2 EU/dl (0.2)
[2021-07-07 19:23] LABS: Coronavirus 19, PCR Not Detected (NotDetected); Influenza A, PCR Not Detected (NotDetected); Influenza B, PCR Not Detected (NotDetected)
[2021-07-07 19:29] LABS: Amorphous Sediment,Urine Trace /lpf; WBC,Urine Occasional #/hpf (0-3)
[2021-07-07 19:35] LABS: ABG Base Excess -11.7 mmol/L (-2.4-2.3); ABG HCO3 13.8 mmhg (22.0-26.0); ABG Oxygen Saturation 91 % (90-100); ABG PCO2 25.4 mmhg (35.0-45.0); ABG PH 7.35 mmol/L (7.35-7.45); ABG PO2 59.3 mmhg (80-100); ABG TCO2 14.6 mmhg (23-27); Oxygen 12 %
--- NOTE | 2021-07-07 19:52 | PC.NURSE ---
placed on NRB per resp therapy
--- NOTE | 2021-07-07 20:22 | PC.NURSE ---
dr cerna return call for consult
--- NOTE | 2021-07-07 20:32 | PC.NURSE ---
turned and positioned patient. rectal temp 101. allie margaretgger removed.
--- NOTE | 2021-07-07 20:45 | PC.NURSE ---
Patient admitted to [facility]
[2021-07-07 21:52] LABS: Valproic Acid, (Depakene) < 10.0 ug/ml (50-100)
--- NOTE | 2021-07-07 23:06 | PC.NURSE ---
PT ARRIVED TO FLOOR VIA STRETCHER FROM ED W/STAFF @ 0701
[2021-07-08] VITALS (7 sets, daily range): BP systolic 124–157; BP diastolic 67–87; PULSE 77–103; RESP 20–24; TEMP 36.6–37.6; O2SAT 89–100; BMI 30.8
--- NOTE | 2021-07-08 02:52 | PC.NURSE ---
PT IS ALERT TO PERSON. ABLE TO ANSWER YES AND NO QUESTIONS AND INTERACT WITH STAFF. PT IS TOLERATING 15L HIGH FLOW NC. REMAINS IN LOW 90S, BUT WILL DE-SAT TO MID 80S WITH COUGHING. DID GET PT TO ALLOW US TO DEEP SUCTION HIM X1 THIS SHIFT. PHLEGM IS VERY THICK AND CREAM COLORED. PT TOLERATED WELL AND IS DOING BETTER AFTER DEEP SUCTIONING. F/C PRESENT DRAINING BRIGHT YELLOW URINE. ADJUSTING PT IN BED Q2H. VSS WILL CONTINUE TO MONITOR.
--- NOTE | 2021-07-08 06:54 | CT_ITS ---
PROCEDURE INFORMATION: Exam: CTA Chest With Contrast Exam date and time: 07/08/2021 6:54 AM Age: 60 years old Clinical indication: Shortness of breath; Additional info: Hypoxia, recent hospitalization, TECHNIQUE: Imaging protocol: Computed tomographic angiography of the chest with contrast. 3D rendering (Not supervised by radiologist): MIP and/or 3D reconstructed images were created by the technologist. Radiation optimization: All CT scans at this facility use at least one of these dose optimization techniques: automated exposure control; mA and/or kV adjustment per patient size (includes targeted exams where dose is matched to clinical indication); or iterative reconstruction. Contrast material: ISOVUE; Contrast volume: 70 ml; Contrast route: INTRAVENOUS (IV); COMPARISON: CR XR CHEST PORTABLE 07/07/2021 7:12 PM FINDINGS: Pulmonary arteries: There is a filling defect present within the pulmonary artery to the right lower lobe (series 601, image 54 and series 2, image 179) consistent with pulmonary embolism. No other filling defects are present within the pulmonary arteries. Aorta: No evidence of aortic dissection. Lungs: Infiltrative changes are noted within both lung bases, greater on the left. Atelectatic changes noted within the left upper lobe. Pleural spaces: There is no evidence of pneumothorax. There are no pleural effusions present. Heart: No evidence of heart strain. There is mild atherosclerotic calcification of the coronary arteries. Lymph nodes: Unremarkable. No enlarged lymph nodes. Bones/joints: Unremarkable. No acute fracture. Soft tissues: Unremarkable. IMPRESSION: 1. Pulmonary embolism present within the pulmonary artery to the right lower lobe. 2. No evidence of heart strain. 3. No evidence of aortic dissection. 4. Infiltrative changes are noted within both lung bases, greater on the left.
--- NOTE | 2021-07-08 07:02 | HMH.HP ---
*Admission Date: 07/08/21 *Chief complaint: Hypoxia *History of present illness: 60-year-old male with recent hospitalization at this facility for aspiration pneumonia and was discharged on the return to the facility yesterday afternoon after he was found hypoxic at his residence. Patient is a long-term care patient at [facility]. Patient had eaten 25% of his meals that day and at around 4 PM was found in his room pale, weak, looking sick, and hypoxic with O2 sat of 83% on room air. Patient was sent to the emergency department. Patient underwent an work-up in the emergency department and initially was hypothermic. Bear hugger was used and patient's temperature responded appropriately. He was started on IV fluids for hypotension. Patient had audible rhonchi and concern remained for worsening pneumonia. Patient was physically resistant to application of BiPAP or Vapotherm and ultimately was placed on simple nasal cannula at 15 L/min which has maintained his O2 sats. This morning the patient asks for water. He denies pain. [facility] History I have reviewed the patient's past medical history: Yes Medical History: Reports:: Anxiety, Congestive Heart Failure, Diabetes Mellitus Type 2, Hyperlipidemia, Hypertension Denies:: Diabetes Mellitus Type 1 *Have you ever received a pneumonia vaccine?: Yes *Have you received a flu vaccine this season?: Yes Other Medical History: Reports: Anemia Other Surgeries: Yes: No Previous Surgery - *Social History Smoking Status: Unknown if ever smoked Tobacco Type: cigars Alcohol Intake: never Alcohol Intake Frequency:: other Substance Use Type: denies use *Occupational Status:: disabled Housing: assisted living facility *Travel in the last 8 weeks: None - Psychiatric History Pschychiatric History:: Reports:: Anxiety Family Hx:: Unable to obtain Review of Systems - Constitutional Denies anorexia, Denies chills, Denies lack of energy - Eyes Denies blind spots, Denies blurry vision - ENT Denies abnormal hearing, Denies bleeding gums, Denies ear discharge - *Cardiovascular Denies chest pain, Denies chest pain at rest - *Respiratory Reports chest congestion, Reports cough, Denies change in phlegm color - *Gastrointestinal Denies abdominal pain, Denies loose stools - *Genitourinary Denies painful urination - *Musculoskeletal Denies joint pain, Denies decreased muscle mass - Integumentary/Breasts Denies hair loss, Denies bleeding lesions - *Neurologic Denies abnormal walking, Denies abnormal hearing - Psychiatric Denies lack of enjoyment Meds Home Medications Medication Instructions Recorded Confirmed Type Acetaminophen [Acetaminophen Extra 1,000 mg PO TID 02/19/18 07/07/21 History Strength] Fenofibrate,Micronized [Tricor 134 mg PO HS 02/19/18 07/07/21 History 134mg] L.acidoph,Paracasei, B.lactis 1 tab PO DAILY 02/19/18 07/07/21 History [Probiotic] Loratadine [Claritin] 10 mg PO DAILY 02/19/18 07/07/21 History Lovastatin 40 mg PO HS 02/19/18 07/07/21 History Multivitamin with Minerals [Hair, 1 tab PO HS 02/19/18 07/07/21 History Skin and Nails] carvediloL [Carvedilol 12.5mg Tab] 12.5 mg PO BID 02/19/18 07/07/21 History Divalproex Sodium [Depakote 250 mg PO BID 09/21/18 07/07/21 History Sprinkle 125mg capsule] diazePAM [Valium 2mg tablet] 2.5 mg PO BID 09/21/18 07/07/21 History Ketoconazole [Nizoral] 1 applicatio TOPICAL TUFRSA 09/22/18 07/07/21 History PARoxetine HCL [Paxil] 20 mg PO DAILY 09/22/18 07/07/21 History Ferrous Sulfate 325 mg PO HS 07/02/21 07/07/21 History Potassium Chloride 10 meq PO DAILY 07/02/21 07/07/21 History Methylcellulose [Fiber] 500 mg PO DAILY 07/03/21 07/07/21 History Triamcinolone Acetonide [Kenalog 1 applicatio TOPICAL DAILYP PRN 07/03/21 07/07/21 History 0.1% cream 30gm tube] risperiDONE [Risperidone] 0.5 mg PO BID 07/03/21 07/07/21 History Amoxicillin/Potassium Clav 1 tab PO Q12H 07/07/21 07/07/21 His
--- NOTE | 2021-07-08 07:14 | SW/DCPLANNER ---
Addendum entered by Lisandra Pineda 07/08/21 11:19: CALLED JAMSHID FRANK TO GIVE CONSENT FOR FEEDING TUBE... JAMSHID CALLED ME BACK AND STATED HE WILL BE CALLING THE NURSE TO GIVE CONSENT, HE WILL BE RETURNING BACK TO HIS SNF BED @ [facility] ONCE HE IS MEDICALLY READY TO DO SO.. Original Note: PATIENT DISCHARGED FROM [facility] AND RETURNED BACK THE NEXT DAY WITH UROSEPSIS.. HE IS A RESIDENT OF [facility] AND WILL RETURN BACK THERE ONCE HE IS MEDICALLY READY FOR DISCHARGE.. HE IS ON A BEDHOLD THERE...
--- NOTE | 2021-07-08 07:56 | P.CONPHA_ITS ---
[facility] Pharmacy VTE Monitoring - Patient Demographics Admission date: 07/08/21 Report Date: 07/08/21 Time: 07:56 Allergies/Adverse Reactions: Patient Allergies No Known Allergies Allergy (Unverified 09/22/18 08:13) Height: 1.88 m Weight: 109 kg Patient Problems: Current Active Problems Hypotension (Acute) Aspiration pneumonia (Acute) Septic shock (Acute) Respiratory failure with hypoxia (Acute) - VTE Risk Labs: VTE Related Lab Results Hgb 11.2 g/dL (14.1-18.0) L 07/07/21 18:55 Hct 35.2 % (42.0-52.0) L 07/07/21 18:55 Plt Count 378 K/mm3 (142-424) 07/07/21 18:55 BUN 25 mg/dl (9-20) H 07/07/21 18:55 Creatinine 1.20 mg/dl (0.66-1.25) 07/07/21 18:55 Estimated Creat Clear 96 mL/min (50-200) 07/07/21 18:55 Clinical Trial Participant: No - Prophylaxis VTE Prophylaxis Ordered?: Yes Types of VTE Prophylaxis: TEDS Knee High
[2021-07-08 08:47] LABS: Basophils # 0.1 K/mm3 (0-0.2); Basophils % 0.3 % (0.1-2.0); Eosinophils # 0.1 K/mm3 (0.0-0.4); Eosinophils % 0.6 % (0.1-12.0); Hematocrit 35.5 % (42.0-52.0); Hemoglobin 11.4 g/dL (14.1-18.0); Lymphocytes # 1.4 K/mm3 (0.7-4.5); Lymphocytes % 7.2 % (10-50); Mean Corpuscular HGB Conc 32.1 g/dL (31.8-35.4); Mean Corpuscular Hemoglobin 30.8 pg (27.0-31.2); Mean Corpuscular Volume 96.2 fl (80-94); Mean Platelet Volume 9.6 fl (7.4-10.4); Monocytes # 0.8 K/mm3 (0.1-1.0); Monocytes % 3.9 % (1.7-9.3); Neutrophils # 17.4 K/mm3 (1.8-7.8); Platelet Count 340 K/mm3 (142-424); Red Blood Count 3.69 M/mm3 (4.60-6.20); Red Cell Distribution Width 17.4 % (11.5-17.5); White Blood Count 19.8 K/mm3 (4.8-10.8)
[2021-07-08 08:48] LABS: MANUAL DIFFERENTIAL MANUAL DIFFERENTIAL (MANUAL DIFF)
--- NOTE | 2021-07-08 09:00 | HMH.PHAINT ---
verified home medication list using MAR from senior living
[2021-07-08 09:07] LABS: Chloride 123 mmol/L (98-107)
[2021-07-08 09:08] LABS: Potassium 3.7 mmoL/L (3.5-5.1)
[2021-07-08 09:10] LABS: Blood Urea Nitrogen 26 mg/dl (9-20); Creatinine Clearance Estimated 103 mL/min (50-200); Estimated Glomerular Filt Rate 62 ml/min (>60); GFR (African American) 75 ML/MIN (>60)
[2021-07-08 09:11] LABS: Anion Gap 19.7 mEq/L (5-15); Calcium 8.7 mg/dl (8.4-10.2); Carbon Dioxide 13 mmol/L (22.0-30.0); Glucose 85 mg/dl (74-100)
[2021-07-08 09:17] LABS: Sodium 152 mmol/L (136-145)
[2021-07-08 09:47] LABS: Lymphocytes % 9 % (10-50); Monocytes % 3 % (2-9); Neutrophils % 83 % (42-76); Nucleated Red Blood Cells 1; Platelet Estimate Normal; Total Cells Counted 100
[2021-07-08 09:50] LABS: RBC Morphology Normal
[2021-07-08 10:02] LABS: Procalcitonin 1.97 ng/mL (0.0-2.0)
--- NOTE | 2021-07-08 10:12 | HMH.SLDYSPHA ---
Speech & Language Evaluation Speech/Language Dysphagia Evaluation Start: 07/08/21 10:05 Freq: ONCE Status: Active Protocol: Document 07/08/21 10:05 SUNSHINE (Rec: 07/08/21 10:11 SUNSHINE [id number]) Dysphagia Assess/Goals/Plan Assessment Date of Evaluation: 07/08/21 Evaluation Type Initial Certification Assessment/Problems Dysphagia Does Patient Qualify for Service Yes Qualify/Failure Comment Patient would benefit from Therapy for HEP education Recommendations PHYSICIAN CERTIFICATION: The specified therapy services are required, authorized, and reviewed every 30 days. Pt will be seen # times/week 1 for # weeks 1 Diet Recommendations NPO Additional Consults Recommended Nutritional Consult Plan Anticipate reaching STG in # weeks 1 Anticipate reaching LTG in # weeks 1 Pt/Guardian verbally ack understanding Yes: Notified of dx/prognosis/goals G -code Required No STG-Asp Aft/Vallec-Laryng elevation Produce /i/ in continuous fashion, incl. 25 fasetto in # trials STG-Asp Aft/Lees/Tongue Base Pretend to gargle in # trials 10 Pretend to yawn in # trials 10 Speech & Language HPI Language Primary Language Luxembourgish General Information General Current Food Consistancy NPO Dentition Good Dentition Oxygen Status Room Air Facial Symmetry Symmetrical Patient Orientation Person,Place,Time Ability to Follow Directions Excellent Communication Ability No Impairment Dysphagia:Food Presentation Evaluation Food Type Pureed,Pudding Pudding Consistency Liquid Response Coughing after swallow,Clears throat,Wet voice Dysphagia Evaluation Pureed Food Coughing after swallow,Clears Behavior Response throat,Wet voice Dysphagia Evaluation Summary Mr. Umana was given the following consistencies based off of MBS results completed on 07-05-21, pureed and pudding thick liquids. Mr. Umana is highly at risk for aspiration with all consistenices. No oral phase impairments were noted. Mr. Umana exhibited coughing after the swallow, throat clearing, and wet vocal quality with both pureed and pudding thick liquids. At this time, it is recommeded he be referred for alternate feeding method. He
--- NOTE | 2021-07-08 13:47 | HMH.GSCON ---
*Admission Date: 07/08/21 *Reason for consult:: Feeding tube placement *History of present illness: Patient is a 60-year-old male with developmental delay who is a resident at [facility]. He had recently been admitted to this institution 07/01/2021 to 07/06/2021. He was diagnosed with aspiration pneumonia. During that hospitalization he actually required brief Levophed drip due to hypotension. During that hospitalization the patient did undergo speech therapy swallowing assessment was found to be high risk for aspiration with all consistencies and alternate feeding method was recommended. He was ultimately discharged back to the [facility] care facility on 07/06/2021 on Augmentin. He was brought back to the emergency department the following day on 07/07/2021 as he was found to be weak, pale, ill-appearing, and hypoxic with oxygen saturations of 83% on room air. He was brought to the emergency department where he was found to be somewhat hypothermic. Surgery was consulted for possible PEG tube placement. Of note, patient underwent CT angiogram of the chest which reveals pulmonary embolism present within pulmonary artery to the right lower lobe. There are infiltrative changes noted within both lung bases greater on the left. He is on therapeutic Lovenox. Review of Systems - Review of Systems Review of systems:: unable to obtain - *Neurologic Denies abnormal walking, Denies abnormal hearing [facility] History I have reviewed the patient's past medical history: Yes Medical History: Reports:: Anxiety, Congestive Heart Failure, Diabetes Mellitus Type 2, Hyperlipidemia, Hypertension Denies:: Diabetes Mellitus Type 1 *Have you ever received a pneumonia vaccine?: Yes *Have you received a flu vaccine this season?: Yes Other Medical History: Reports: Anemia Other Surgeries: Yes: No Previous Surgery - *Social History Smoking Status: Unknown if ever smoked Tobacco Type: cigars Alcohol Intake: never Alcohol Intake Frequency:: other Substance Use Type: denies use *Occupational Status:: disabled Housing: assisted living facility *Travel in the last 8 weeks: None - Psychiatric History Pschychiatric History:: Reports:: Anxiety Family Hx:: Unable to obtain Meds Home Medications Medication Instructions Recorded Confirmed Type Acetaminophen [Acetaminophen Extra 1,000 mg PO TID 02/19/18 07/07/21 History Strength] Fenofibrate,Micronized [Tricor 134 mg PO HS 02/19/18 07/07/21 History 134mg] L.acidoph,Paracasei, B.lactis 1 tab PO DAILY 02/19/18 07/07/21 History [Probiotic] Loratadine [Claritin] 10 mg PO DAILY 02/19/18 07/07/21 History Lovastatin 40 mg PO HS 02/19/18 07/07/21 History Multivitamin with Minerals [Hair, 1 tab PO HS 02/19/18 07/07/21 History Skin and Nails] carvediloL [Carvedilol 12.5mg Tab] 12.5 mg PO BID 02/19/18 07/07/21 History Divalproex Sodium [Depakote 250 mg PO BID 09/21/18 07/07/21 History Sprinkle 125mg capsule] diazePAM [Valium 2mg tablet] 2.5 mg PO BID 09/21/18 07/07/21 History Ketoconazole [Nizoral] 1 applicatio TOPICAL TUFRSA 09/22/18 07/07/21 History PARoxetine HCL [Paxil] 20 mg PO DAILY 09/22/18 07/07/21 History Ferrous Sulfate 325 mg PO HS 07/02/21 07/07/21 History Potassium Chloride 10 meq PO DAILY 07/02/21 07/07/21 History Methylcellulose [Fiber] 500 mg PO DAILY 07/03/21 07/07/21 History Triamcinolone Acetonide [Kenalog 1 applicatio TOPICAL DAILYP PRN 07/03/21 07/07/21 History 0.1% cream 30gm tube] risperiDONE [Risperidone] 0.5 mg PO BID 07/03/21 07/07/21 History Amoxicillin/Potassium Clav 1 tab PO Q12H 07/07/21 07/07/21 History [Augmentin 875-125 Tablet] Furosemide [Lasix 40mg tab] 40 mg PO DAILY 07/08/21 07/08/21 History lisinopriL [Lisinopril] 5 mg PO BID 07/08/21 07/08/21 History Allergies Allergy/AdvReac Type Severity Reaction Status Date / Time No Known Allergies Allergy Unverified 09/22/18 08:13 Exam Vital signs and Labs for Last 24 Hours:
--- NOTE | 2021-07-08 18:43 | PC.NURSE ---
Pt has been oriented to self, , he knows he is at the hospital, and is aware that is the next holiday coming up. Pt has been a q2h turn this shift. Pt has had x2 loose, brown/green bowel movements this shift. Coarse crackles heard t/o all lung cross. Pt has required deep suction and oral suction multiple times this shift. Moderate amount of yellow/white mucus noted during suctioning. +2 pitting edema noted to bilat feet. Heel protectors applied this shift to maintain skin integrity. Of note: this RN and Fredis Felder RN spoke to pt regarding peg tube placement and the reason he would require it. Pt responded by shaking his head. When asked if he wants the peg tube pt stated no . When Fredis Felder RN reiterated the importance of the peg tube and the possible side effects of not receiving one including pt stated oh well . MD Ramos made aware, as well as pt's guardian.
[2021-07-08 21:26] LABS: Adenovirus F 40/41, stool Not Detected (NotDetected); Astrovirus Not Detected (NotDetected); Campylobacter Not Detected (NotDetected); Clostridium Difficile A/B, PCR Not Detected (NotDetected); Cryptosporidium Not Detected (NotDetected); Cyclospora Cayetanesis Not Detected (NotDetected); Entamoeba histolytica Not Detected (NotDetected); Enteroaggregative E coli Not Detected (NotDetected); Enteropathogenic E coli Not Detected (NotDetected); Enterotoxigenic E coli Not Detected (NotDetected); Giardia lamblia Not Detected (NotDetected); Norovirus Not Detected (NotDetected); Plesimonas Shigalloides, PCR Not Detected (NotDetected); Rotavirus A Not Detected (NotDetected); Salmonella, PCR Not Detected (NotDetected); Sapovirus Not Detected (NotDetected); Shiga-like toxin E coli Not Detected (NotDetected); Shigella Enterovasive E coli Not Detected (NotDetected); Vibrio Cholerae Not Detected (NotDetected); Vibrio, PCR Not Detected (NotDetected); Yersinia Entercolitica, PCR Not Detected (NotDetected)
--- NOTE | 2021-07-08 22:28 | PC.NURSE ---
Asisted with bed bath, gown change and turning. No other care needed
[2021-07-09] VITALS (7 sets, daily range): BP systolic 124–143; BP diastolic 72–96; PULSE 84–100; RESP 18–22; TEMP 36.9–37.1; O2SAT 91–95; BMI 31.1
--- NOTE | 2021-07-09 05:51 | PC.NURSE ---
Emptied trash and linens
[2021-07-09 06:35] LABS: Basophils # 0.1 K/mm3 (0-0.2); Basophils % 0.3 % (0.1-2.0); Eosinophils # 0.1 K/mm3 (0.0-0.4); Eosinophils % 0.2 % (0.1-12.0); Hematocrit 37.8 % (42.0-52.0); Hemoglobin 12.1 g/dL (14.1-18.0); Lymphocytes # 1.9 K/mm3 (0.7-4.5); Lymphocytes % 6.6 % (10-50); Mean Corpuscular HGB Conc 32.1 g/dL (31.8-35.4); Mean Corpuscular Hemoglobin 31.5 pg (27.0-31.2); Mean Corpuscular Volume 98.2 fl (80-94); Mean Platelet Volume 9.4 fl (7.4-10.4); Monocytes # 1.1 K/mm3 (0.1-1.0); Monocytes % 3.8 % (1.7-9.3); Neutrophils # 25.6 K/mm3 (1.8-7.8); Neutrophils % 89.1 % (37.0-80.0); Platelet Count 363 K/mm3 (142-424); Red Blood Count 3.85 M/mm3 (4.60-6.20); Red Cell Distribution Width 17.4 % (11.5-17.5); White Blood Count 28.8 K/mm3 (4.8-10.8)
[2021-07-09 06:47] LABS: MANUAL DIFFERENTIAL MANUAL DIFFERENTIAL (MANUAL DIFF)
[2021-07-09 06:50] LABS: Blood Urea Nitrogen 27 mg/dl (9-20); Creatinine Clearance Estimated 105 mL/min (50-200); Estimated Glomerular Filt Rate 62 ml/min (>60); GFR (African American) 75 ML/MIN (>60)
--- NOTE | 2021-07-09 06:51 | PC.NURSE ---
O2 titrated from 4L to 2L nc; o2 sat 93-94%; RA sat 87-90%. Pt. deep-suctioned by RT with thick light brown secretions. One episode of diarrhea; panel acquired per protocol.
[2021-07-09 07:04] LABS: Chloride 123 mmol/L (98-107)
[2021-07-09 07:05] LABS: Potassium 3.9 mmoL/L (3.5-5.1)
--- NOTE | 2021-07-09 07:05 | HMH.ACPN2 ---
Internal Medicine - PN: Subj *Date: 07/09/21 *Time: 07:05 Interval history: Speech therapy evaluations revealed patient to be high risk for aspiration with progression of swallowing dysfunction. Alternate feeding method was recommended. General surgeon was consulted however when evaluating the patient the patient refused surgery. Multiple members of nursing staff also spoke with patient who refused surgery. Patient's assigned guardian was notified yesterday of patient's condition as well as his refusal of any surgical procedure. Options at this time would be comfort care while keeping the patient n.p.o. with anticipation of versus court order to proceed with a feeding tube. This morning in speaking with the patient he continues to refuse any surgical procedure. In addition to the events of yesterday patient was found to have pulmonary embolism of the right lower lung and was started on subcutaneous Lovenox Exam Vital signs and Labs for Last 24 Hours: Temp Pulse Resp BP Pulse Ox 98.7 F 92 H 20 143/77 H 91 L 07/09/21 03:43 07/09/21 03:43 07/09/21 03:43 07/09/21 03:43 07/09/21 03:43 Laboratory Results - last 24 hr 07/08/21 08:40: WBC 19.8 H D, RBC 3.69 L, Hgb 11.4 L, Hct 35.5 L, MCV 96.2 H, MCH 30.8, MCHC 32.1, RDW 17.4, Plt Count 340, MPV 9.6, Neut % (Auto) 88.0 H, Lymph % (Auto) 7.2 L, [place] % (Auto) 3.9, Eos % (Auto) 0.6, Baso % (Auto) 0.3, Neut # (Auto) 17.4 H, Lymph # (Auto) 1.4, [place] # (Auto) 0.8, Eos # (Auto) 0.1, Baso # (Auto) 0.1, Total Counted 100, Neutrophils % (Manual) 83 H, Band Neutrophils % 5.0, Lymphocytes % (Manual) 9 L, Monocytes % (Manual) 3, Nucleated RBCs 1, Platelet Estimate Normal, RBC Morphology Normal 07/08/21 08:40: Sodium 152 H*, Potassium 3.7, Chloride 123 H, Carbon Dioxide 13 L, Anion Gap 19.7 H, BUN 26 H, Creatinine 1.20, Estimated Creat Clear 103, Estimated GFR 62, Est GFR ( Amer) 75, Glucose 85 D, Calcium 8.7 07/08/21 08:40: Procalcitonin 1.97 07/08/21 21:08: Stl Aeromonas (PCR) Not detected, Stl C. cayetanensis PCR Not detected, Stool Rotavirus (PCR) Not detected, Stl Adenov F 40/41 PCR Not detected, Stool Astrovirus (PCR) Not detected, Stool Campylobacter PCR Not detected, Stl C.difficile Tox PCR Not detected, Stool Cryptosporidium PCR Not detected, Stl E.coli Shiga Tox PCR Not detected, Stool E coli O157 PCR Not detected, Stl Enterotoxigenic E PCR Not detected, Stool EPEC (PCR) Not detected, Stool EAEC (PCR) Not detected, Stl E. histolytica PCR Not detected, Stool Giardia Lamblia PCR Not detected, Stool Salmonella PCR Not detected, Stool Sapovirus (PCR) Not detected, Stl P. shigelloides PCR Not detected, Stl Shigella/EIEC PCR Not detected, St Y.enterocolitica PCR Not detected, Stool Vibrio (PCR) Not detected, Stl Vibrio cholerae PCR Not detected, Stl Norovirus GI/GII PCR Not detected 07/09/21 06:07: WBC 28.8 H* D, RBC 3.85 L, Hgb 12.1 L, Hct 37.8 L, MCV 98.2 H, MCH 31.5 H, MCHC 32.1, RDW 17.4, Plt Count 363, MPV 9.4, Neut % (Auto) 89.1 H, Lymph % (Auto) 6.6 L, [place] % (Auto) 3.8, Eos % (Auto) 0.2, Baso % (Auto) 0.3, Neut # (Auto) 25.6 H, Lymph # (Auto) 1.9, [place] # (Auto) 1.1 H, Eos # (Auto) 0.1, Baso # (Auto) 0.1 I & O for Last 24 hours: Intake & Output 07/06/21 07/07/21 07/08/21 07/09/21 11:59 11:59 11:59 11:59 Intake Total 3150 / 3150 2055 Output Total 400 / 400 450 / 450 Balance 2750 / 2750 1606 / 1606 Weight 240 lb 4.862 oz 242 lb 15.19 oz - Constitutional no acute distress - *Routine Respiratory Exam Present: rhonchi (Left) - *Routine Cardiovascular Exam Present: RRR (And apparently the) Assessment and Plan (1) Aspiration pneumonia Status: Acute Qualifiers: Aspiration pneumonia type: unspecified Laterality: right Lung location: middle lobe of lung Qualified Code(s): J69.0 - Pneumonitis due to inhalation of food and vomit Category: Medical Code(s): J69.0 - Pneumonitis due to inhalation of food and vomit (2) Respiratory failur
[2021-07-09 07:08] LABS: Anion Gap 19.9 mEq/L (5-15); Calcium 8.9 mg/dl (8.4-10.2); Carbon Dioxide 13 mmol/L (22.0-30.0); Glucose 140 mg/dl (74-100)
[2021-07-09 07:15] LABS: Sodium 152 mmol/L (136-145)
[2021-07-09 07:53] LABS: Lymphocytes % 6 % (10-50); Monocytes % 7 % (2-9); Neutrophils % 86 % (42-76); Platelet Estimate Normal; Total Cells Counted 100
[2021-07-09 07:54] LABS: RBC Morphology Normal
[2021-07-10] VITALS (8 sets, daily range): BP systolic 100–143; BP diastolic 70–78; PULSE 87–101; RESP 20–24; TEMP 36.4–37.2; O2SAT 92–96; BMI 32.0; BMI 31.9
--- NOTE | 2021-07-10 06:29 | PC.NURSE ---
Pt c/o pain in left shoulder 1x thus far, medicated with PRN morphine with favorable results. Pt has had intermittent coughing and has been deep suctioned 3x by RT t/o shift. Mucous is light fleming in color with some blood present. Partial bed bath provided by staff.
--- NOTE | 2021-07-10 07:19 | HMH.ACPN2 ---
Internal Medicine - PN: Subj *Date: 07/10/21 *Time: 07:19 Interval history: No change in patient's condition. He refuses suction. He is consistent in his refusal for surgery. He admits he does not feel well. He complains of epigastric pain. Patient remains on supplemental oxygen. He continues to ask for food and drink Exam Vital signs and Labs for Last 24 Hours: Temp Pulse Resp BP Pulse Ox 97.5 F L 87 20 129/76 96 07/10/21 03:35 07/10/21 03:35 07/10/21 03:35 07/10/21 03:35 07/10/21 04:00 Laboratory Results - last 24 hr 07/09/21 06:07: Total Counted 100, Neutrophils % (Manual) 86 H, Band Neutrophils % 1.0, Lymphocytes % (Manual) 6 L, Monocytes % (Manual) 7, Platelet Estimate Normal, RBC Morphology Normal I & O for Last 24 hours: Intake & Output 07/07/21 07/08/21 07/09/21 07/10/21 11:59 11:59 11:59 11:59 Intake Total 3150 / 3150 2056 / 2056 1080 / 1080 Output Total 400 / 400 450 / 450 480 / 480 Balance 2750 / 2750 1606 / 1606 600 / 600 Weight 240 lb 4.862 oz 242 lb 15.19 oz 249 lb 5.485 oz Microbiology Reports for the Last 24 Hours: Microbiology 07/07/21 18:55 Blood Blood Culture - Preliminary NO GROWTH AFTER 48 HOURS 07/07/21 18:55 Blood Blood Culture - Preliminary NO GROWTH AFTER 48 HOURS - Constitutional no acute distress - *Routine Respiratory Exam Present: rhonchi (Left lung) - *Routine Cardiovascular Exam Present: RRR - *Routine Abdominal Exam Present: soft, normoactive bowel sounds. Absent: tenderness, distended Assessment and Plan (1) Aspiration pneumonia Status: Acute Qualifiers: Aspiration pneumonia type: unspecified Laterality: right Lung location: middle lobe of lung Qualified Code(s): J69.0 - Pneumonitis due to inhalation of food and vomit Category: Medical Code(s): J69.0 - Pneumonitis due to inhalation of food and vomit (2) Respiratory failure with hypoxia Status: Acute Qualifiers: Chronicity: acute Qualified Code(s): J96.01 - Acute respiratory failure with hypoxia Category: Medical Code(s): J96.91 - Respiratory failure, unspecified with hypoxia (3) Pulmonary embolism Status: Acute Category: Medical Code(s): I26.99 - Other pulmonary embolism without acute cor pulmonale (4) Developmental disorder Status: Chronic Category: Medical Code(s): F89 - Unspecified disorder of psychological development (5) Schizophrenic disorder Status: Chronic Category: Medical Code(s): F20.9 - Schizophrenia, unspecified (6) Type 2 diabetes mellitus Status: Chronic Qualifiers: Diabetes mellitus meterman insulin use: without penitentiary use Category: Medical Code(s): E11.9 - Type 2 diabetes mellitus without complications (7) Dysphagia causing pulmonary aspiration with swallowing Status: Suspected Category: Medical Code(s): R13.19 - Other dysphagia - Assessment and plan all Dx Assessment and Plan for all problems:: 1. Patient will remain n.p.o. due to aspiration risk. We are currently awaiting word through the state for permission to proceed with PEG tube. Patient remains consistent in his refusal for surgery 2. Continue Zosyn for patient's aspiration pneumonia 3. Continue subcu Lovenox at 1 mg/kg every 12 H 4. At present patient's condition is guarded.
[2021-07-10 07:43] LABS: Basophils # 0.1 K/mm3 (0-0.2); Basophils % 0.5 % (0.1-2.0); Eosinophils # 0.1 K/mm3 (0.0-0.4); Eosinophils % 0.3 % (0.1-12.0); Hematocrit 36.2 % (42.0-52.0); Hemoglobin 11.3 g/dL (14.1-18.0); Lymphocytes # 2.6 K/mm3 (0.7-4.5); Lymphocytes % 8.8 % (10-50); Mean Corpuscular HGB Conc 31.2 g/dL (31.8-35.4); Mean Corpuscular Hemoglobin 30.6 pg (27.0-31.2); Mean Corpuscular Volume 98.1 fl (80-94); Mean Platelet Volume 9.1 fl (7.4-10.4); Monocytes # 0.9 K/mm3 (0.1-1.0); Monocytes % 2.9 % (1.7-9.3); Neutrophils # 25.7 K/mm3 (1.8-7.8); Neutrophils % 87.4 % (37.0-80.0); Platelet Count 373 K/mm3 (142-424); Red Blood Count 3.69 M/mm3 (4.60-6.20); Red Cell Distribution Width 17.7 % (11.5-17.5); White Blood Count 29.4 K/mm3 (4.8-10.8)
[2021-07-10 07:46] LABS: Chloride 124 mmol/L (98-107); Potassium 3.9 mmoL/L (3.5-5.1)
[2021-07-10 07:48] LABS: MANUAL DIFFERENTIAL MANUAL DIFFERENTIAL (MANUAL DIFF)
[2021-07-10 07:49] LABS: Anion Gap 18.9 mEq/L (5-15); Blood Urea Nitrogen 23 mg/dl (9-20); Carbon Dioxide 14 mmol/L (22.0-30.0); Creatinine Clearance Estimated 117 mL/min (50-200); Estimated Glomerular Filt Rate 69 ml/min (>60); GFR (African American) 83 ML/MIN (>60)
[2021-07-10 07:50] LABS: Calcium 8.9 mg/dl (8.4-10.2); Glucose 133 mg/dl (74-100)
[2021-07-10 07:55] LABS: Sodium 153 mmol/L (136-145)
[2021-07-10 09:05] LABS: Lymphocytes % 8 % (10-50); Monocytes % 1 % (2-9); Neutrophils % 89 % (42-76); Platelet Estimate Normal; Total Cells Counted 100
[2021-07-10 09:07] LABS: Acanthocytes 1+; Poikilocytosis 2+
[2021-07-10 09:08] LABS: Anisocytosis 1+
--- NOTE | 2021-07-10 09:18 | HMH.PHACONS ---
- Pharmacy Consult Date: 07/10/21 Time: 09:18 Referring provider: DR. COTTO Reason for Consult:: VANCOMYCIN DOSING Allergies and ADEs:: Allergies Allergy/AdvReac Type Severity Reaction Status Date / Time No Known Allergies Allergy Unverified 09/22/18 08:13 Home Medications:: Home Medications Medication Instructions Recorded Confirmed Type Acetaminophen [Acetaminophen Extra 1,000 mg PO TID 02/19/18 07/07/21 History Strength] Fenofibrate,Micronized [Tricor 134 mg PO HS 02/19/18 07/07/21 History 134mg] L.acidoph,Paracasei, B.lactis 1 tab PO DAILY 02/19/18 07/07/21 History [Probiotic] Loratadine [Claritin] 10 mg PO DAILY 02/19/18 07/07/21 History Lovastatin 40 mg PO HS 02/19/18 07/07/21 History Multivitamin with Minerals [Hair, 1 tab PO HS 02/19/18 07/07/21 History Skin and Nails] carvediloL [Carvedilol 12.5mg Tab] 12.5 mg PO BID 02/19/18 07/07/21 History Divalproex Sodium [Depakote 250 mg PO BID 09/21/18 07/07/21 History Sprinkle 125mg capsule] diazePAM [Valium 2mg tablet] 2.5 mg PO BID 09/21/18 07/07/21 History Ketoconazole [Nizoral] 1 applicatio TOPICAL TUFRSA 09/22/18 07/07/21 History PARoxetine HCL [Paxil] 20 mg PO DAILY 09/22/18 07/07/21 History Ferrous Sulfate 325 mg PO HS 07/02/21 07/07/21 History Potassium Chloride 10 meq PO DAILY 07/02/21 07/07/21 History Methylcellulose [Fiber] 500 mg PO DAILY 07/03/21 07/07/21 History Triamcinolone Acetonide [Kenalog 1 applicatio TOPICAL DAILYP PRN 07/03/21 07/07/21 History 0.1% cream 30gm tube] risperiDONE [Risperidone] 0.5 mg PO BID 07/03/21 07/07/21 History Amoxicillin/Potassium Clav 1 tab PO Q12H 07/07/21 07/07/21 History [Augmentin 875-125 Tablet] Furosemide [Lasix 40mg tab] 40 mg PO DAILY 07/08/21 07/08/21 History lisinopriL [Lisinopril] 5 mg PO BID 07/08/21 07/08/21 History Height: 1.88 m Weight: 113.1 kg Laboratory Results:: Laboratory Results - last 24 hr 07/10/21 07:30: WBC 29.4 H*, RBC 3.69 L, Hgb 11.3 L, Hct 36.2 L, MCV 98.1 H, MCH 30.6, MCHC 31.2 L, RDW 17.7 H, Plt Count 373, MPV 9.1, Neut % (Auto) 87.4 H, Lymph % (Auto) 8.8 L, [place] % (Auto) 2.9, Eos % (Auto) 0.3, Baso % (Auto) 0.5, Neut # (Auto) 25.7 H, Lymph # (Auto) 2.6, [place] # (Auto) 0.9, Eos # (Auto) 0.1, Baso # (Auto) 0.1, Total Counted 100, Neutrophils % (Manual) 89 H, Band Neutrophils % 2.0, Lymphocytes % (Manual) 8 L, Monocytes % (Manual) 1 L, Platelet Estimate Normal, Poikilocytosis 2+, Anisocytosis 1+, Acanthocytes (Spur) 1+ 07/10/21 07:30: Sodium 153 H*, Potassium 3.9, Chloride 124 H, Carbon Dioxide 14 L, Anion Gap 18.9 H, BUN 23 H, Creatinine 1.10, Estimated Creat Clear 117, Estimated GFR 69, Est GFR ( Amer) 83, Glucose 133 H, Calcium 8.9 Medical History: Reports:: Anxiety, Congestive Heart Failure, Diabetes Mellitus Type 2, Hyperlipidemia, Hypertension Denies:: Diabetes Mellitus Type 1 Assessment and Plan (1) Aspiration pneumonia Status: Acute Qualifiers: Aspiration pneumonia type: unspecified Laterality: right Lung location: middle lobe of lung Qualified Code(s): J69.0 - Pneumonitis due to inhalation of food and vomit Category: Medical Code(s): J69.0 - Pneumonitis due to inhalation of food and vomit (2) Respiratory failure with hypoxia Status: Acute Qualifiers: Chronicity: acute Qualified Code(s): J96.01 - Acute respiratory failure with hypoxia Category: Medical Code(s): J96.91 - Respiratory failure, unspecified with hypoxia (3) Pulmonary embolism Status: Acute Category: Medical Code(s): I26.99 - Other pulmonary embolism without acute cor pulmonale (4) Developmental disorder Status: Chronic Category: Medical Code(s): F89 - Unspecified disorder of psychological development (5) Schizophrenic disorder Status: Chronic Category: Medical Code(s): F20.9 - Schizophrenia, unspecified (6) Type 2 diabetes mellitus Status: Chronic Qualifiers: Diabetes mellitus senior care insulin use: without long
--- NOTE | 2021-07-10 09:25 | PC.NURSE ---
RESP CARE NOTE: Pt NT suctioned for sputum specimen. Large amount bloody sputum sent to lab. NSG notified.
--- NOTE | 2021-07-10 10:52 | SW/DCPLANNER ---
Addendum entered by Lisandra Pineda 07/11/21 15:03: PAPERWORK FOR DNR AND END OF LIFE AT THIS TIME IS INCOMPLETE.. MD NOTES SENT AND I HAVE ATTEMPTED TO CALL [facility] AND LEFT A MESSAGE TO SEE WHAT HE NEEDS TO PROVIDE TO COURT FOR FEEDING TUBE PLACEMENT.. WAITING ON A CALL BACK.. SPEECH THERAPIST STATED PATIENT IS NOT SAFE TO SWALLOW AND THEREFORE HE REMAINS NPO.. Addendum entered by Lisandra Pineda 07/10/21 13:14: COMPLETED THE PAPERWORK PER REQUEST OF THE NURSE SWIMMING COACH OR INSTRUCTOR ON MAKING THIS PATIENT A DNR AND END OF LIFE COMFORT CARE TO RETURN BACK TO THE RESIDENTIAL... WAITING ON THE NURSE TO SEND ME A SIGN CONFIRMED DNR FORM TO PUT ON PATIENTS CHART AND DOCUMENTATION TO BE ABLE TO SEND HIM BACK TO THE RESIDENTIAL... Original Note: I MADE CONTACT WITH TIMOTHY MARTINEZ, NURSE SWIMMING COACH OR INSTRUCTOR AND REVIEWER THIS MORNING TO GET ALL THE APPROPRIATE PAPERWORK DONE TO MAKE PATIENT A DNR AND MOVE FORWARD WITH GOING BACK TO THE RESIDENTIAL FOR COMFORT CARE AND HOSPICE TO FOLLOW.. PATIENT IS A RESIDENT OF [facility] AND IS UNDER STATE GUARDIANSHIP. GOING TO SEND APPROPRIATE PAPERWORK IN TO GET THE BALL ROLLING TO GET PATIENT BACK TO THE RESIDENTIAL...
--- NOTE | 2021-07-10 12:54 | HMH.GSPN ---
Subjective Narrative: There has been no appreciable change in the patient's clinical condition. He has consistently adamantly refused surgical intervention for gastrostomy tube placement. The state supports Mr. Umana's refusal for surgical intervention and tube feed placement. Without a form of nutrition patient stands no chance of recovery from his illness. We will proceed with request of DNR status. Without a form of nutrition patient would be expected to pass within the next couple of weeks. Request will be made for focus of care to be comfort care only. This would then allow the patient to be comfortable and he could return to the long-term care facility where he was living. Original Note: Internal Medicine - PN: Subj *Date: 07/10/21 *Time: 07:19 Interval history: No change in patient's condition. He refuses suction. He is consistent in his refusal for surgery. He admits he does not feel well. He complains of epigastric pain. Patient remains on supplemental oxygen. He continues to ask for food and drink Progress Note: A&P (1) Aspiration pneumonia Status: Acute (2) Respiratory failure with hypoxia Status: Acute (3) Pulmonary embolism Status: Acute (4) Developmental disorder Status: Chronic (5) Schizophrenic disorder Status: Chronic (6) Type 2 diabetes mellitus Status: Chronic (7) Dysphagia causing pulmonary aspiration with swallowing Status: Suspected Assessment and Plan for All Diagnoses:: Based on the speech pathology assessment patient is not a candidate for oral nutrition. Patient continues to adamantly refuse feeding tube placement. Reportedly the state has supported Mr. Umana' refusal for surgical intervention and gastrostomy tube placement. Without feeding tube placement patient is in a terminal state and stands no chance of realistic recovery. I concur that hospice involvement with comfort care measures to keep the patient pain-free would be warranted. Exam Vital signs and Labs for Last 24 Hours: Temp Pulse Resp BP Pulse Ox 99.0 F 101 H 20 113/78 95 07/10/21 07:41 07/10/21 07:41 07/10/21 07:41 07/10/21 07:41 07/10/21 08:00 Laboratory Results - last 24 hr 07/10/21 07:30: WBC 29.4 H*, RBC 3.69 L, Hgb 11.3 L, Hct 36.2 L, MCV 98.1 H, MCH 30.6, MCHC 31.2 L, RDW 17.7 H, Plt Count 373, MPV 9.1, Neut % (Auto) 87.4 H, Lymph % (Auto) 8.8 L, [place] % (Auto) 2.9, Eos % (Auto) 0.3, Baso % (Auto) 0.5, Neut # (Auto) 25.7 H, Lymph # (Auto) 2.6, [place] # (Auto) 0.9, Eos # (Auto) 0.1, Baso # (Auto) 0.1, Total Counted 100, Neutrophils % (Manual) 89 H, Band Neutrophils % 2.0, Lymphocytes % (Manual) 8 L, Monocytes % (Manual) 1 L, Platelet Estimate Normal, Poikilocytosis 2+, Anisocytosis 1+, Acanthocytes (Spur) 1+ 07/10/21 07:30: Sodium 153 H*, Potassium 3.9, Chloride 124 H, Carbon Dioxide 14 L, Anion Gap 18.9 H, BUN 23 H, Creatinine 1.10, Estimated Creat Clear 117, Estimated GFR 69, Est GFR ( Amer) 83, Glucose 133 H, Calcium 8.9 I & O for Last 24 hours: Intake & Output 07/08/21 07/09/21 07/10/21 07/11/21 11:59 11:59 11:59 11:59 Intake Total 3150 / 3150 2056 / 2056 1080 / 1080 0 / 0 Output Total 400 / 400 450 / 450 480 / 480 Balance 2750 / 2750 1606 / 1606 600 / 600 0 / 0 Weight 240 lb 4.862 oz 242 lb 15.19 oz 249 lb 5.485 oz Microbiology Reports for the Last 24 Hours: Microbiology 07/08/21 09:27 Sputum - Expectorated Sputum Gram Stain - Final 07/07/21 18:55 Blood Blood Culture - Preliminary NO GROWTH AFTER 48 HOURS 07/07/21 18:55 Blood Blood Culture - Preliminary NO GROWTH AFTER 48 HOURS
--- NOTE | 2021-07-10 16:18 | PC.NURSE ---
Order received to insert an NG tube. Roosevelt Taylor RN and this personal lines underwriter asked patient if an NG tube could be placed and patient refused with shaking his head no and grabbing my hands that was holding the NG tube and not allowing it to be done.
[2021-07-10 22:26] LABS: Basophils # 0.1 K/mm3 (0-0.2); Basophils % 0.3 % (0.1-2.0); Eosinophils # 0.1 K/mm3 (0.0-0.4); Eosinophils % 0.4 % (0.1-12.0); Hematocrit 31.5 % (42.0-52.0); Lymphocytes # 1.8 K/mm3 (0.7-4.5); Mean Corpuscular HGB Conc 30.2 g/dL (31.8-35.4); Mean Corpuscular Hemoglobin 30.4 pg (27.0-31.2); Mean Corpuscular Volume 100.9 fl (80-94); Mean Platelet Volume 9.7 fl (7.4-10.4); Monocytes # 0.8 K/mm3 (0.1-1.0); Monocytes % 2.7 % (1.7-9.3); Neutrophils # 27.4 K/mm3 (1.8-7.8); Neutrophils % 90.5 % (37.0-80.0); Platelet Count 363 K/mm3 (142-424); Red Blood Count 3.12 M/mm3 (4.60-6.20); Red Cell Distribution Width 18.6 % (11.5-17.5); White Blood Count 30.2 K/mm3 (4.8-10.8)
[2021-07-10 22:32] LABS: MANUAL DIFFERENTIAL MANUAL DIFFERENTIAL (MANUAL DIFF)
[2021-07-10 22:57] LABS: Hemoglobin 9.5 g/dL (14.1-18.0)
[2021-07-10 23:47] LABS: Anisocytosis 1+; Hypochromasia 2+; Lymphocytes % 10 % (10-50); Monocytes % 4 % (2-9); Neutrophils % 86 % (42-76); Platelet Estimate Normal; Total Cells Counted 100
[2021-07-11] VITALS (8 sets, daily range): BP systolic 110–128; BP diastolic 44–80; PULSE 84–94; RESP 18–21; TEMP 36.6–37.2; O2SAT 90–94; BMI 32.1
--- NOTE | 2021-07-11 06:09 | PC.NURSE ---
Pt has been coughing up bright red blood coming out of his mouth and both nares during shift. MD telecommunications engineer made aware and came to assess pt. No new orders were given. Pt has been suctioned multiple times t/o shift, drainage is bright red in color. Pt is able to communicate need for suction and pain by nodding head. Pt was given a partial bath and linens were changed this shift. Pt has tolerated 4 L nc with sats >90%. Pt will pull off oxygen at times and drop to mid 80s.
[2021-07-11 07:43] LABS: POC Glucose,Bedside 121 (70-110)
--- NOTE | 2021-07-11 08:13 | FL_ITS ---
PROCEDURE: FL BARIUM SWALLOW MODIFIED CLINICAL INDICATION: COMPARISON: No exams were available for comparison TECHNIQUE: Patient administered varying consistencies of barium contrast, while viewed in lateral position under real-time fluoroscopy with cine recording. FLUOROSCOPY TIME: The study was performed in conjunction with speech pathologist. Please see that report & recommendations. FINDINGS: Patient was given varying consistencies of barium. There was early spillage. Aspiration with thin and thick liquids noted. There was moderate residual with aspiration of residual contents. There was poor cough reflex. In adequate clearing with cough. IMPRESSION: Severe impairment with aspiration. Please see speech pathologist report and recommendations. Dictated by: Lars Burgos MD 07/11/2021 15:13 Lars Burgos MD in [place] 07/11/2021 15:13
--- NOTE | 2021-07-11 08:20 | HMH.ACPN2 ---
Internal Medicine - PN: Subj *Date: 07/11/21 *Time: 08:26 Interval history: Over the last 24 hours patient has allowed suctioning which is produced bloody sputum or secretions. NG tube was ordered yesterday to allow for tube feeds and patient refused. This morning patient remains consistent in his refusal of both PEG tube and NG tube to allow for feedings. Patient states I want water . Is explained to the patient that if he is allowed to eat and drink his pneumonia will worsen which would ultimately lead to . Patient is able to indicate he does not want to . As patient is a guardian of the state we are still awaiting word on being allowed to proceed with PEG tube. Over the last 24 hours there were conflicting reports from the state. Initially it was indicated that patient's refusal of a feeding tube should be taken at word. DNR would be appropriate if patient is not expected to recover. Without a source of nutrition patient would not be expected to recover from his pneumonia even with antibiotics. DNR was sought. No decision has yet been made on the DNR request. Later yesterday it was indicated that more information was needed on the patient to make an adequate decision regarding both DNR and a PEG tube. Available information has been sent to divorce attorney to bring before the manager assisted living. It is unlikely there will be any decision made before the Exam Vital signs and Labs for Last 24 Hours: Temp Pulse Resp BP Pulse Ox 98.9 F 94 H 19 126/72 94 L 07/11/21 04:00 07/11/21 04:00 07/11/21 04:00 07/11/21 04:00 07/11/21 04:00 Laboratory Results - last 24 hr 07/10/21 07:30: Total Counted 100, Neutrophils % (Manual) 89 H, Band Neutrophils % 2.0, Lymphocytes % (Manual) 8 L, Monocytes % (Manual) 1 L, Platelet Estimate Normal, Poikilocytosis 2+, Anisocytosis 1+, Acanthocytes (Spur) 1+ 07/10/21 20:00: POC Glucose 121 H 07/10/21 22:19: WBC 30.2 H*, RBC 3.12 L, Hgb 9.5 L D, Hct 31.5 L, MCV 100.9 H, MCH 30.4, MCHC 30.2 L, RDW 18.6 H, Plt Count 363, MPV 9.7, Neut % (Auto) 90.5 H, Lymph % (Auto) 6.0 L, [place] % (Auto) 2.7, Eos % (Auto) 0.4, Baso % (Auto) 0.3, Neut # (Auto) 27.4 H, Lymph # (Auto) 1.8, [place] # (Auto) 0.8, Eos # (Auto) 0.1, Baso # (Auto) 0.1, Total Counted 100, Neutrophils % (Manual) 86 H, Lymphocytes % (Manual) 10, Monocytes % (Manual) 4, Platelet Estimate Normal, RBC Morphology Not Reportable, Hypochromasia 2+, Anisocytosis 1+ I & O for Last 24 hours: Intake & Output 07/08/21 07/09/21 07/10/21 07/11/21 11:59 11:59 11:59 11:59 Intake Total 3150 / 3150 2056 / 2056 1080 / 1080 0 / 0 Output Total 400 / 400 450 / 450 480 / 480 1300 / 1300 Balance 2750 / 2750 1606 / 1606 600 / 600 -1300 / -1300 Weight 240 lb 4.862 oz 242 lb 15.19 oz 249 lb 5.485 oz 250 lb 14.177 oz Microbiology Reports for the Last 24 Hours: Microbiology 07/08/21 09:27 Sputum - Expectorated Sputum Gram Stain - Final Narrative: Patient remains positioned on his left side in bed. He answers questions with movements of his head and is able to say a few words some of which are clear and others are garbled. He is able to indicate he wants water. Lungs have persistent rhonchi heard anteriorly in the left chest and right lower chest as well as in the right middle lobe. Heart has a regular rate and rhythm. Abdomen is soft. Lower extremities have trace edema. Assessment and Plan (1) Aspiration pneumonia Status: Acute Qualifiers: Aspiration pneumonia type: unspecified Laterality: right Lung location: middle lobe of lung Qualified Code(s): J69.0 - Pneumonitis due to inhalation of food and vomit Category: Medical Code(s): J69.0 - Pneumonitis due to inhalation of food and vomit (2) Respiratory failure with hypoxia Status: Acute Qualifiers: Chronicity: acute Qualified Code(s): J96.01 - Acute respiratory failure with hypoxia Category: Medical Code(s): J96.91 - Respiratory failure, unspeci
[2021-07-11 08:35] LABS: Basophils # 0.1 K/mm3 (0-0.2); Basophils % 0.3 % (0.1-2.0); Eosinophils # 0.1 K/mm3 (0.0-0.4); Eosinophils % 0.3 % (0.1-12.0); Hematocrit 29.4 % (42.0-52.0); Hemoglobin 8.9 g/dL (14.1-18.0); Lymphocytes # 1.4 K/mm3 (0.7-4.5); Lymphocytes % 5.1 % (10-50); Mean Corpuscular HGB Conc 30.1 g/dL (31.8-35.4); Mean Corpuscular Hemoglobin 30.4 pg (27.0-31.2); Mean Corpuscular Volume 101.1 fl (80-94); Mean Platelet Volume 9.7 fl (7.4-10.4); Monocytes # 0.8 K/mm3 (0.1-1.0); Monocytes % 3.2 % (1.7-9.3); Neutrophils # 24.1 K/mm3 (1.8-7.8); Neutrophils % 91.1 % (37.0-80.0); Platelet Count 312 K/mm3 (142-424); Red Blood Count 2.91 M/mm3 (4.60-6.20); Red Cell Distribution Width 18.7 % (11.5-17.5); White Blood Count 26.5 K/mm3 (4.8-10.8)
[2021-07-11 08:43] LABS: MANUAL DIFFERENTIAL MANUAL DIFFERENTIAL (MANUAL DIFF)
[2021-07-11 08:58] LABS: Eosinophils % 1 % (0-3); Lymphocytes % 9 % (10-50); Macrocytosis 1+; Monocytes % 1 % (2-9); Neutrophils % 89 % (42-76); Nucleated Red Blood Cells 2; Platelet Estimate Normal; Total Cells Counted 100
[2021-07-11 08:59] LABS: Acanthocytes 1+
[2021-07-11 09:02] LABS: Potassium 4.1 mmoL/L (3.5-5.1)
[2021-07-11 09:05] LABS: Blood Urea Nitrogen 25 mg/dl (9-20); Calcium 8.4 mg/dl (8.4-10.2); Carbon Dioxide 14 mmol/L (22.0-30.0); Creatinine Clearance Estimated 118 mL/min (50-200); Estimated Glomerular Filt Rate 69 ml/min (>60); GFR (African American) 83 ML/MIN (>60); Glucose 115 mg/dl (74-100)
[2021-07-11 09:07] LABS: Anion Gap 18.1 mEq/L (5-15); Chloride 126 mmol/L (98-107); Sodium 154 mmol/L (136-145)
--- NOTE | 2021-07-11 11:34 | HMH.SLMBS2 ---
Speech & Language Evaluation Speech/Language Mod Barium Swallow Start: 07/11/21 08:13 Freq: ONCE Status: Complete Protocol: Document 07/11/21 10:58 SUNSHINE (Rec: 07/11/21 11:33 SUNSHINE [id number]) General Information General Current Food Consistancy NPO Dentition Good Dentition Oxygen Status Room Air Facial Symmetry Symmetrical Patient Orientation Person Ability to Follow Directions Fair MBS Recommendations Diet Dietary Recommendations NPO Referrals/Other Recommended Referrals Alternate Feeding Method Mod Barium Swallow Impressions Summary and Impressions Oral Phase Impression Moderate Impairment Oral Phase Summary Mr. Umana was given the following consistencies: thins via spoon, nectar via spoon, honey via spoon, and pudding via spoon. Mr. Umana exhibited moderate oral residue which he is at risk for aspirating on the residue. Suction was needed to clear residue from oral cavity following honey and pudding thick trials. Pharyngeal Phase Impression Severe Impairment Pharyngeal Phase Summary Mr. Umana exhibited severe impairment of pharyngeal phase . He aspirated before the swallow due to premature spillage into laryngeal vestibule with thins. He penetrated and as result aspirated after the swallow with thins, nectar, honey, and pudding thick liquids. All trials were teaspoon size trials. Epiglottic inversion was impaired to protect the airway during the swallow which resulted in aspiration of trials. Decreased laryngeal elevation noted with all trials. Weak tongue base retraction demonstrated throughout assessment. He exhibited an unproductive cough which he could not clear the laryngeal vestibule. Speech therapy cued for subsequent coughs to clear aspiration with minimal
--- NOTE | 2021-07-11 11:50 | DIET.NUTRFU ---
tubefeeding recommendations were made upon consult by this RD. During rounds Provider explained to patient he will without nutrition and nutrition at this time needs to be enteral. He refused to have a PEG or NG tube. MBS preformed again today, showed aspiration with all consistencies and difficulty following directions during swallow study. NPO with enteral nutrition is still the recommendations. Provider following up on DNR status. Any oral intake is unsafe at this time, if choices not to have PEG or NG placed will need to consider hospice or comfort care.
--- NOTE | 2021-07-11 13:44 | PC.NURSE ---
relayed to dr christianson that patient has had blood continuously running from nostril seems to pool in the nostril and our out with any movements of head. asked if he wanted anything done such as coags. new order received for neosynephrine nasal spray q4hrs and to decrease patient lovenox to 40mg daily.
--- NOTE | 2021-07-11 18:25 | PC.NURSE ---
Patient having bloody drainage from his nose; has been deep suctioned numerous times resulting in bloody drainage with clots r/t not being able to cough up drainage. Will continue to monitor.
[2021-07-11 22:55] LABS: Vancomycin,Trough 47.5 ug/mL (5.0-10.0)
--- NOTE | 2021-07-11 23:41 | HMH.PHAINT ---
pharmacy night watch called with vancomycin trough at 2300, spoke with shahram, instructed to hold pm vancomycin dose, repeated and verified
[2021-07-12] VITALS (19 sets, daily range): BP systolic 90–127; BP diastolic 43–72; PULSE 83–106; RESP 17–22; TEMP 36.5–37.7; O2SAT 93–958; BMI 32.2
--- NOTE | 2021-07-12 07:53 | PC.NURSE ---
pt with nose bleed all shift, nasal spray used as prescribed, pt with black tarry stool and bottom red stage 2 excoriation. bilateral pitting edema
--- NOTE | 2021-07-12 08:35 | HMH.ACPN2 ---
Internal Medicine - PN: Subj *Date: 07/12/21 *Time: 08:35 Interval history: Patient is remained stable. Patient has had persistent slow oozing nosebleed from the left nare for the last 24 hours. This is interrupted use of his Lovenox. Patient has been suctioned as needed. Patient was witnessed repeatedly picking at his nose and staff is placed the patient in protective mittens. Regarding the process for approval of patient's PEG tube we have received word it is likely waiting to be signed by a animal husbandry technician. This is not expected to happen until Thursday Exam Vital signs and Labs for Last 24 Hours: Temp Pulse Resp BP Pulse Ox 98.9 F 95 H 19 103/58 L 99 07/12/21 08:00 07/12/21 08:00 07/12/21 08:00 07/12/21 08:00 07/12/21 08:00 Laboratory Results - last 24 hr 07/11/21 08:18: WBC 26.5 H*, RBC 2.91 L, Hgb 8.9 L, Hct 29.4 L, MCV 101.1 H, MCH 30.4, MCHC 30.1 L, RDW 18.7 H, Plt Count 312, MPV 9.7, Neut % (Auto) 91.1 H, Lymph % (Auto) 5.1 L, [place] % (Auto) 3.2, Eos % (Auto) 0.3, Baso % (Auto) 0.3, Neut # (Auto) 24.1 H, Lymph # (Auto) 1.4, [place] # (Auto) 0.8, Eos # (Auto) 0.1, Baso # (Auto) 0.1, Total Counted 100, Neutrophils % (Manual) 89 H, Lymphocytes % (Manual) 9 L, Monocytes % (Manual) 1 L, Eosinophils % (Manual) 1, Nucleated RBCs 2, Platelet Estimate Normal, Macrocytosis 1+, Acanthocytes (Spur) 1+ 07/11/21 08:18: Sodium 154 H*, Potassium 4.1, Chloride 126 H, Carbon Dioxide 14 L, Anion Gap 18.1 H, BUN 25 H, Creatinine 1.10, Estimated Creat Clear 118, Estimated GFR 69, Est GFR ( Amer) 83, Glucose 115 H, Calcium 8.4 07/11/21 20:27: Vancomycin Trough 47.5 H I & O for Last 24 hours: Intake & Output 07/09/21 07/10/21 07/11/21 07/12/21 11:59 11:59 11:59 11:59 Intake Total 2055 / 2056 1080 / 1080 0 / 0 1772 / 1772 Output Total 450 / 450 480 / 480 1550 / 1550 800 / 800 Balance 1606 / 1606 600 / 600 -1550 / -1550 972 / 972 Weight 242 lb 15.19 oz 249 lb 5.485 oz 250 lb 14.177 oz 251 lb 5.231 oz Microbiology Reports for the Last 24 Hours: Microbiology 07/08/21 09:27 Sputum - Expectorated Sputum Gram Stain - Final 07/08/21 09:27 Sputum - Expectorated Sputum Sputum Culture - Preliminary Narrative: Patient is in no distress. Patient has active bleeding from the left side of the nose. Lungs have bilateral scattered rhonchi. Heart has a regular rate and rhythm. Assessment and Plan (1) Aspiration pneumonia Status: Acute Qualifiers: Aspiration pneumonia type: unspecified Laterality: right Lung location: middle lobe of lung Qualified Code(s): J69.0 - Pneumonitis due to inhalation of food and vomit Category: Medical Code(s): J69.0 - Pneumonitis due to inhalation of food and vomit (2) Respiratory failure with hypoxia Status: Acute Qualifiers: Chronicity: acute Qualified Code(s): J96.01 - Acute respiratory failure with hypoxia Category: Medical Code(s): J96.91 - Respiratory failure, unspecified with hypoxia (3) Pulmonary embolism Status: Acute Category: Medical Code(s): I26.99 - Other pulmonary embolism without acute cor pulmonale (4) Developmental disorder Status: Chronic Category: Medical Code(s): F89 - Unspecified disorder of psychological development (5) Schizophrenic disorder Status: Chronic Category: Medical Code(s): F20.9 - Schizophrenia, unspecified (6) Type 2 diabetes mellitus Status: Chronic Qualifiers: Diabetes mellitus mcc insulin use: without manager terminal use Category: Medical Code(s): E11.9 - Type 2 diabetes mellitus without complications (7) Dysphagia causing pulmonary aspiration with swallowing Status: Suspected Category: Medical Code(s): R13.19 - Other dysphagia (8) Epistaxis Status: Acute Category: Medical Code(s): R04.0 - Epistaxis - Assessment and plan all Dx Assessment and Plan for all problems:: 1. Continue broad-spectrum antibiotics for patient's suspected aspiration pneumonia 2. [place]
[2021-07-12 08:45] LABS: Basophils # 0.1 K/mm3 (0-0.2); Basophils % 0.5 % (0.1-2.0); Eosinophils % 0.1 % (0.1-12.0); Hematocrit 27.1 % (42.0-52.0); Lymphocytes # 1.6 K/mm3 (0.7-4.5); Mean Corpuscular HGB Conc 29.4 g/dL (31.8-35.4); Mean Corpuscular Hemoglobin 29.6 pg (27.0-31.2); Mean Corpuscular Volume 100.6 fl (80-94); Mean Platelet Volume 10.1 fl (7.4-10.4); Monocytes # 1.2 K/mm3 (0.1-1.0); Monocytes % 4.3 % (1.7-9.3); Neutrophils # 23.7 K/mm3 (1.8-7.8); Neutrophils % 89.1 % (37.0-80.0); Platelet Count 322 K/mm3 (142-424); Red Cell Distribution Width 19.1 % (11.5-17.5); White Blood Count 26.6 K/mm3 (4.8-10.8)
[2021-07-12 08:46] LABS: MANUAL DIFFERENTIAL MANUAL DIFFERENTIAL (MANUAL DIFF)
[2021-07-12 08:51] LABS: Potassium 3.5 mmoL/L (3.5-5.1)
[2021-07-12 08:53] LABS: Blood Urea Nitrogen 29 mg/dl (9-20); Creatinine Clearance Estimated 93 mL/min (50-200); Estimated Glomerular Filt Rate 52 ml/min (>60); GFR (African American) 63 ML/MIN (>60)
[2021-07-12 08:54] LABS: Calcium 8.3 mg/dl (8.4-10.2); Glucose 136 mg/dl (74-100)
--- NOTE | 2021-07-12 08:54 | P.PN_ITS ---
Internal Medicine - PN: Subj *Date: 07/12/21 *Time: 08:54 Exam Vital signs and Labs for Last 24 Hours: Temp Pulse Resp BP Pulse Ox 98.9 F 95 H 19 103/58 L 99 07/12/21 08:00 07/12/21 08:00 07/12/21 08:00 07/12/21 08:00 07/12/21 08:00 Laboratory Results - last 24 hr 07/11/21 08:18: Total Counted 100, Neutrophils % (Manual) 89 H, Lymphocytes % (Manual) 9 L, Monocytes % (Manual) 1 L, Eosinophils % (Manual) 1, Nucleated RBCs 2, Platelet Estimate Normal, Macrocytosis 1+, Acanthocytes (Spur) 1+ 07/11/21 08:18: Sodium 154 H*, Potassium 4.1, Chloride 126 H, Carbon Dioxide 14 L, Anion Gap 18.1 H, BUN 25 H, Creatinine 1.10, Estimated Creat Clear 118, Estimated GFR 69, Est GFR ( Amer) 83, Glucose 115 H, Calcium 8.4 07/11/21 20:27: Vancomycin Trough 47.5 H 07/12/21 08:30: WBC 26.6 H*, RBC 2.70 L, Hgb 8.0 L, Hct 27.1 L, MCV 100.6 H, MCH 29.6, MCHC 29.4 L, RDW 19.1 H, Plt Count 322, MPV 10.1, Neut % (Auto) 89.1 H, Lymph % (Auto) 6.0 L, [place] % (Auto) 4.3, Eos % (Auto) 0.1, Baso % (Auto) 0.5, Neut # (Auto) 23.7 H, Lymph # (Auto) 1.6, [place] # (Auto) 1.2 H, Eos # (Auto) 0.0, Baso # (Auto) 0.1 I & O for Last 24 hours: Intake & Output 07/09/21 07/10/21 07/11/21 07/12/21 23:59 23:59 23:59 23:59 Intake Total 1080 / 1080 0 / 0 772 / 772 1000 / 1000 Output Total 330 / 530 500 / 500 1250 / 2050 800 / 800 Balance 750 / 550 -500 / -500 -478 / -1278 200 / 200 Weight 110.2 kg 113 kg 113.8 kg 114 kg Microbiology Reports for the Last 24 Hours: Microbiology 07/08/21 09:27 Sputum - Expectorated Sputum Gram Stain - Final 07/08/21 09:27 Sputum - Expectorated Sputum Sputum Culture - Preliminary Assessment and Plan (1) Aspiration pneumonia Status: Acute Qualifiers: Aspiration pneumonia type: unspecified Laterality: right Lung location: middle lobe of lung Qualified Code(s): J69.0 - Pneumonitis due to inhalation of food and vomit Category: Medical Code(s): J69.0 - Pneumonitis due to inhalation of food and vomit (2) Respiratory failure with hypoxia Status: Acute Qualifiers: Chronicity: acute Qualified Code(s): J96.01 - Acute respiratory failure with hypoxia Category: Medical Code(s): J96.91 - Respiratory failure, unspecified with hypoxia (3) Pulmonary embolism Status: Acute Category: Medical Code(s): I26.99 - Other pulmonary embolism without acute cor pulmonale (4) Developmental disorder Status: Chronic Category: Medical Code(s): F89 - Unspecified disorder of psychological development (5) Schizophrenic disorder Status: Chronic Category: Medical Code(s): F20.9 - Schizophrenia, unspecified (6) Type 2 diabetes mellitus Status: Chronic Qualifiers: Diabetes mellitus termite control service representative insulin use: without group home use Category: Medical Code(s): E11.9 - Type 2 diabetes mellitus without complications (7) Dysphagia causing pulmonary aspiration with swallowing Status: Suspected Category: Medical Code(s): R13.19 - Other dysphagia (8) Epistaxis Status: Acute Category: Medical Code(s): R04.0 - Epistaxis The patient's infection will respond to the chosen ABx?: Yes Is the patient receiving the right drug, dose, and route?: Yes Could a more targeted ABx be ordered?: No
[2021-07-12 08:58] LABS: Anion Gap 14.5 mEq/L (5-15); Carbon Dioxide 14 mmol/L (22.0-30.0)
[2021-07-12 09:00] LABS: Chloride 129 mmol/L (98-107); Sodium 154 mmol/L (136-145)
--- NOTE | 2021-07-12 09:46 | DIET.NUTRFU ---
Addendum entered by India Dow RD, LD 07/12/21 11:12: NG tube not yet inserted when completed rounds, will follow-up Original Note: Patient was reviewed during rounds today, waiting for PEG placement early next week d/t court order. NG tube inserted and TF order in place. This will meet 100% nutritional needs providing 2070kcal and 103gm protein and free water of 1388ml plus flush of 805ml with total fluid of 2193ml/day. He is also noted to have pitting edema today. Labs from [facility] were Na 154H, BUN 29, Cr 1.4. Will continue to monitor TF tolerance and any change in weights/labs.
[2021-07-12 09:56] LABS: Lymphocytes % 11 % (10-50); Monocytes % 3 % (2-9); Neutrophils % 83 % (42-76); Total Cells Counted 100
[2021-07-12 09:57] LABS: Anisocytosis 1+; Hypochromasia 1+; Platelet Estimate Normal
[2021-07-12 10:59] LABS: Vancomycin,Trough 40.6 ug/mL (5.0-10.0)
--- NOTE | 2021-07-12 14:33 | XR_ITS ---
PROCEDURE INFORMATION: Exam: XR Chest Exam date and time: 07/12/2021 2:33 PM Age: 60 years old Clinical indication: Device placement; Ng tube; Additional info: Ng tube placement TECHNIQUE: Imaging protocol: XR of the chest. Views: 1 view. COMPARISON: CR XR CHEST PORTABLE 07/07/2021 7:12 PM FINDINGS: Tubes, catheters and devices: Nasogastric tube tip is curled in the left upper quadrant, within the stomach. Note that the NGT tube courses through the stomach body, however the tip curls proximal and rests adjacent to the GE junction. Airway: Patent Lungs: There is platelike and patchy consolidation in the left lung base. Low lung volumes causes crowding of the bronchovascular structures. Right upper lung is not included in this examination. Remainder of the lungs are clear. Pleural spaces: Unremarkable. No pleural effusion. No pneumothorax. Heart/Mediastinum: Cardiomediastinal silhouette is magnified due to technique. Vasculature: Calcified aortic knob. Bones/joints: No acute skeletal abnormality or aggressive osseous lesion. IMPRESSION: 1. NGT POSITION ABOVE. 2. LEFT LUNG BASE FINDINGS CONCERNING FOR A COMBINATION OF ATELECTASIS AND ACUTE AIRSPACE DISEASE/PNEUMONIA IN THE APPROPRIATE CLINICAL SETTING.
[2021-07-12 17:47] LABS: Basophils # 0.1 K/mm3 (0-0.2); Basophils % 0.5 % (0.1-2.0); Eosinophils % 0.2 % (0.1-12.0); Hematocrit 41.7 % (42.0-52.0); Lymphocytes # 1.9 K/mm3 (0.7-4.5); Lymphocytes % 11.1 % (10-50); Mean Corpuscular HGB Conc 29.5 g/dL (31.8-35.4); Mean Corpuscular Hemoglobin 29.9 pg (27.0-31.2); Mean Corpuscular Volume 101.5 fl (80-94); Mean Platelet Volume 10.9 fl (7.4-10.4); Monocytes # 0.9 K/mm3 (0.1-1.0); Monocytes % 5.5 % (1.7-9.3); Neutrophils # 13.8 K/mm3 (1.8-7.8); Neutrophils % 82.7 % (37.0-80.0); Platelet Count 203 K/mm3 (142-424); Red Blood Count 4.11 M/mm3 (4.60-6.20); Red Cell Distribution Width 18.8 % (11.5-17.5); White Blood Count 16.7 K/mm3 (4.8-10.8)
[2021-07-12 17:51] LABS: MANUAL DIFFERENTIAL MANUAL DIFFERENTIAL (MANUAL DIFF)
[2021-07-12 17:57] LABS: Hemoglobin 12.4 g/dL (14.1-18.0)
[2021-07-12 18:14] LABS: Lymphocytes % 23 % (10-50); Monocytes % 5 % (2-9); Neutrophils % 72 % (42-76); Nucleated Red Blood Cells 1; Total Cells Counted 100
[2021-07-12 18:15] LABS: Hypochromasia 2+; Macrocytosis 1+; Platelet Estimate Normal
[2021-07-12 18:41] LABS: Hemoglobin 7.4 g/dL (14.1-18.0); Red Blood Count 2.45 M/mm3 (4.60-6.20)
[2021-07-12 18:42] LABS: Basophils % 0.8 % (0.1-2.0); Eosinophils % 0.1 % (0.1-12.0); Hematocrit 25.4 % (42.0-52.0); Mean Corpuscular HGB Conc 29.4 g/dL (31.8-35.4); Mean Corpuscular Hemoglobin 30.3 pg (27.0-31.2); Mean Corpuscular Volume 103.1 fl (80-94); Mean Platelet Volume 10.3 fl (7.4-10.4); Neutrophils % 85.4 % (37.0-80.0); Platelet Count 323 K/mm3 (142-424); Red Cell Distribution Width 19.4 % (11.5-17.5)
[2021-07-12 18:43] LABS: Basophils # 0.2 K/mm3 (0-0.2); Monocytes # 1.4 K/mm3 (0.1-1.0)
--- NOTE | 2021-07-12 20:21 | PC.NURSE ---
Addendum entered by Gunner Warren RN 07/12/21 20:26: CORRECTION DR. SUNG STATED LOVENOX COULD BE HELD TONIGHT, NOT DR. COTTO Original Note: Pts nose bleeding has slowed down at this time and packing to L nare is in place. NG tube is placed in R nare and on cont LWS. Pt has had 150 cc of dark bloody contents in canister. Pt continued to have low BP's this evening and was becoming more pallor and lethargic. Notified Dr. Sung bone crusher for Dr. Cotto and he ordered x 1 unit of PRBC's and protonix [address] Cotto also stated lovenox could be help tonight. (Eden Nunez, Primary RN for tonight aware of that.) Have turned pt q 2. Dsg applied to coccyx. Dr. Cotto ordered x 1 40 mg lasix for edema. Pt had approx 200 cc u/o since administering. Pt is very edematous. Sats remain stable on RA at this time and mittens in place for safety.
--- NOTE | 2021-07-12 20:30 | PC.NURSE ---
Dr. Ramos made aware of sodium of 154 and chloride 129. NNO.
[2021-07-13] VITALS (9 sets, daily range): BP systolic 90–108; BP diastolic 42–60; PULSE 77–100; RESP 20–24; TEMP 36.2–37; O2SAT 92–97; BMI 33.5
--- NOTE | 2021-07-13 00:13 | PC.NURSE ---
2030 pt pulled NG tube out and was replaced per md orders
[2021-07-13 00:59] LABS: Hemoglobin 8.1 g/dL (14.1-18.0)
[2021-07-13 01:00] LABS: Hematocrit 26.8 % (42.0-52.0)
--- NOTE | 2021-07-13 04:16 | PC.NURSE ---
pt recieved 1 unit of PRBC's, pt with NG to ILWS and noted continuous dark colored drainage from NG tube patent to right nares, VS stable with b/p dropping to 80's/40's at times, pt 3+ edema with decrease UOP noted, pt did recieve 1000ml of saline bolus; noted bottom very red with some broken skin and excoriation noted, moisture barrier applied and pt turned Q2 as tolerated
[2021-07-13 06:16] LABS: Basophils # 0.3 K/mm3 (0-0.2); Basophils % 1.3 % (0.1-2.0); Eosinophils % 0.2 % (0.1-12.0); Hemoglobin 8.3 g/dL (14.1-18.0); Lymphocytes # 2.3 K/mm3 (0.7-4.5); Lymphocytes % 8.7 % (10-50); Mean Corpuscular HGB Conc 29.6 g/dL (31.8-35.4); Mean Corpuscular Volume 101.1 fl (80-94); Mean Platelet Volume 10.6 fl (7.4-10.4); Monocytes # 1.2 K/mm3 (0.1-1.0); Monocytes % 4.6 % (1.7-9.3); Neutrophils # 22.1 K/mm3 (1.8-7.8); Neutrophils % 85.2 % (37.0-80.0); Platelet Count 271 K/mm3 (142-424); Red Blood Count 2.77 M/mm3 (4.60-6.20); Red Cell Distribution Width 18.6 % (11.5-17.5)
[2021-07-13 06:18] LABS: Hematocrit 28.1 % (42.0-52.0); White Blood Count 25.9 K/mm3 (4.8-10.8)
[2021-07-13 06:19] LABS: Potassium 3.3 mmoL/L (3.5-5.1)
[2021-07-13 06:20] LABS: MANUAL DIFFERENTIAL MANUAL DIFFERENTIAL (MANUAL DIFF)
[2021-07-13 06:22] LABS: Anion Gap 17.3 mEq/L (5-15); Blood Urea Nitrogen 33 mg/dl (9-20); Calcium 8.3 mg/dl (8.4-10.2); Carbon Dioxide 12 mmol/L (22.0-30.0); Creatinine Clearance Estimated 84 mL/min (50-200); Estimated Glomerular Filt Rate 45 ml/min (>60); GFR (African American) 54 ML/MIN (>60); Glucose 138 mg/dl (74-100)
[2021-07-13 06:37] LABS: Chloride 130 mmol/L (98-107); Sodium 156 mmol/L (136-145)
[2021-07-13 06:47] LABS: Anisocytosis 1+; Hypochromasia 2+; Lymphocytes % 16 % (10-50); Macrocytosis 2+; Neutrophils % 74 % (42-76); Platelet Estimate Normal; Total Cells Counted 100
--- NOTE | 2021-07-13 08:12 | HMH.ACPN2 ---
Internal Medicine - PN: Subj *Date: 07/13/21 *Time: 08:12 Interval history: Patient has declined over the last 24 hours. Patient denies pain. Tube feeds were attempted but patient removed his NG requiring reinsertion. Patient was then noted to have dark bloody drainage from the NG. NG was placed on low intermittent wall suction which is produced dark bloody gastric contents. Patient's nasal packing that was placed yesterday had to be reinserted as well. Patient continues to ooze blood from various sites including fingersticks were blood sugars being monitored. CBC was repeated yesterday and patient was found to be anemic so was transfused 1 unit of packed red blood cells. Patient was also given a fluid bolus. He had minimal response to IV Lasix and renal function is declining. Patient second dose of Lovenox was held yesterday evening due to the evidence of bleeding. Exam Vital signs and Labs for Last 24 Hours: Temp Pulse Resp BP Pulse Ox 98.3 F 85 22 102/55 L 95 07/13/21 04:00 07/13/21 04:00 07/13/21 04:00 07/13/21 04:00 07/13/21 04:00 Laboratory Results - last 24 hr 07/12/21 08:30: WBC 26.6 H*, RBC 2.70 L, Hgb 8.0 L, Hct 27.1 L, MCV 100.6 H, MCH 29.6, MCHC 29.4 L, RDW 19.1 H, Plt Count 322, MPV 10.1, Neut % (Auto) 89.1 H, Lymph % (Auto) 6.0 L, [place] % (Auto) 4.3, Eos % (Auto) 0.1, Baso % (Auto) 0.5, Neut # (Auto) 23.7 H, Lymph # (Auto) 1.6, [place] # (Auto) 1.2 H, Eos # (Auto) 0.0, Baso # (Auto) 0.1, Total Counted 100, Neutrophils % (Manual) 83 H, Band Neutrophils % 3.0, Lymphocytes % (Manual) 11, Monocytes % (Manual) 3, Platelet Estimate Normal, Hypochromasia 1+, Anisocytosis 1+ 07/12/21 08:30: Sodium 154 H*, Potassium 3.5, Chloride 129 H, Carbon Dioxide 14 L, Anion Gap 14.5, BUN 29 H, Creatinine 1.40 H D, Estimated Creat Clear 93, Estimated GFR 52 L, Est GFR ( Amer) 63 D, Glucose 136 H, Calcium 8.3 L 07/12/21 10:30: Vancomycin Trough 40.6 H 07/12/21 17:34: WBC 16.7 H D, RBC 4.11 L D, Hgb 12.4 L D, Hct 41.7 L, MCV 101.5 H, MCH 29.9, MCHC 29.5 L, RDW 18.8 H, Plt Count 203 D, MPV 10.9 H, Neut % (Auto) 82.7 H, Lymph % (Auto) 11.1, [place] % (Auto) 5.5, Eos % (Auto) 0.2, Baso % (Auto) 0.5, Neut # (Auto) 13.8 H, Lymph # (Auto) 1.9, [place] # (Auto) 0.9, Eos # (Auto) 0.0, Baso # (Auto) 0.1, Total Counted 100, Neutrophils % (Manual) 72, Lymphocytes % (Manual) 23, Monocytes % (Manual) 5, Nucleated RBCs 1, Platelet Estimate Normal, RBC Morphology Not Reportable, Hypochromasia 2+, Macrocytosis 1+ 07/12/21 17:45: WBC 27.0 H* D, RBC 2.45 L D, Hgb 7.4 L D, Hct 25.4 L, MCV 103.1 H, MCH 30.3, MCHC 29.4 L, RDW 19.4 H, Plt Count 323 D, MPV 10.3, Neut % (Auto) 85.4 H, Lymph % (Auto) 74.0 H, [place] % (Auto) 5.0, Eos % (Auto) 0.1, Baso % (Auto) 0.8, Neut # (Auto) 23.0 H, Lymph # (Auto) 2.0, [place] # (Auto) 1.4 H, Eos # (Auto) 0.0, Baso # (Auto) 0.2 07/12/21 19:15: Blood Type O Positive, Antibody Screen Negative, Crossmatch (AHG) See Detail 07/12/21 19:15: Blood Type Confirm O Positive 07/13/21 00:50: Hgb 8.1 L, Hct 26.8 L 07/13/21 05:50: WBC 25.9 H*, RBC 2.77 L, Hgb 8.3 L, Hct 28.1 L, MCV 101.1 H, MCH 30.0, MCHC 29.6 L, RDW 18.6 H, Plt Count 271, MPV 10.6 H, Neut % (Auto) 85.2 H, Lymph % (Auto) 8.7 L, [place] % (Auto) 4.6, Eos % (Auto) 0.2, Baso % (Auto) 1.3, Neut # (Auto) 22.1 H, Lymph # (Auto) 2.3, [place] # (Auto) 1.2 H, Eos # (Auto) 0.0, Baso # (Auto) 0.3 H, Total Counted 100, Neutrophils % (Manual) 74, Band Neutrophils % 10.0 H, Lymphocytes % (Manual) 16, Platelet Estimate Normal, Hypochromasia 2+, Anisocytosis 1+, Macrocytosis 2+ 07/13/21 05:50: Sodium 156 H*, Potassium 3.3 L, Chloride 130 H, Carbon Dioxide 12 L, Anion Gap 17.3 H, BUN 33 H, Creatinine 1.60 H, Estimated Creat Clear 84, Estimated GFR 45 L, Est GFR ( Amer) 54 L, Glucose 138 H, Calcium 8.3 L, Procalcitonin 1.20 I & O for Last 24 hours: Intake & Output 07/10/21 07/11/21 07/12/21 07/13/21 11:59 11:59 11:59 11:59 Intake Total 1080 / 1080 0 / 0 1772 / 1772 250 / 250 Output Total
[2021-07-13 08:21] LABS: Vancomycin,Trough 31.2 ug/mL (5.0-10.0)
--- NOTE | 2021-07-13 11:27 | HMH.ACPN ---
Internal Medicine - PN: Subj *Date: 07/13/21 *Time: 11:27 Exam Vital signs and Labs for Last 24 Hours: Temp Pulse Resp BP Pulse Ox 98.3 F 100 H 22 108/52 L 94 L 07/13/21 08:00 07/13/21 08:00 07/13/21 08:00 07/13/21 08:00 07/13/21 08:00 Laboratory Results - last 24 hr 07/12/21 17:34: WBC 16.7 H D, RBC 4.11 L D, Hgb 12.4 L D, Hct 41.7 L, MCV 101.5 H, MCH 29.9, MCHC 29.5 L, RDW 18.8 H, Plt Count 203 D, MPV 10.9 H, Neut % (Auto) 82.7 H, Lymph % (Auto) 11.1, [place] % (Auto) 5.5, Eos % (Auto) 0.2, Baso % (Auto) 0.5, Neut # (Auto) 13.8 H, Lymph # (Auto) 1.9, [place] # (Auto) 0.9, Eos # (Auto) 0.0, Baso # (Auto) 0.1, Total Counted 100, Neutrophils % (Manual) 72, Lymphocytes % (Manual) 23, Monocytes % (Manual) 5, Nucleated RBCs 1, Platelet Estimate Normal, RBC Morphology Not Reportable, Hypochromasia 2+, Macrocytosis 1+ 07/12/21 17:45: WBC 27.0 H* D, RBC 2.45 L D, Hgb 7.4 L D, Hct 25.4 L, MCV 103.1 H, MCH 30.3, MCHC 29.4 L, RDW 19.4 H, Plt Count 323 D, MPV 10.3, Neut % (Auto) 85.4 H, Lymph % (Auto) 74.0 H, [place] % (Auto) 5.0, Eos % (Auto) 0.1, Baso % (Auto) 0.8, Neut # (Auto) 23.0 H, Lymph # (Auto) 2.0, [place] # (Auto) 1.4 H, Eos # (Auto) 0.0, Baso # (Auto) 0.2 07/12/21 19:15: Blood Type O Positive, Antibody Screen Negative, Crossmatch (AHG) See Detail 07/12/21 19:15: Blood Type Confirm O Positive 07/13/21 00:50: Hgb 8.1 L, Hct 26.8 L 07/13/21 05:50: WBC 25.9 H*, RBC 2.77 L, Hgb 8.3 L, Hct 28.1 L, MCV 101.1 H, MCH 30.0, MCHC 29.6 L, RDW 18.6 H, Plt Count 271, MPV 10.6 H, Neut % (Auto) 85.2 H, Lymph % (Auto) 8.7 L, [place] % (Auto) 4.6, Eos % (Auto) 0.2, Baso % (Auto) 1.3, Neut # (Auto) 22.1 H, Lymph # (Auto) 2.3, [place] # (Auto) 1.2 H, Eos # (Auto) 0.0, Baso # (Auto) 0.3 H, Total Counted 100, Neutrophils % (Manual) 74, Band Neutrophils % 10.0 H, Lymphocytes % (Manual) 16, Platelet Estimate Normal, Hypochromasia 2+, Anisocytosis 1+, Macrocytosis 2+ 07/13/21 05:50: Sodium 156 H*, Potassium 3.3 L, Chloride 130 H, Carbon Dioxide 12 L, Anion Gap 17.3 H, BUN 33 H, Creatinine 1.60 H, Estimated Creat Clear 84, Estimated GFR 45 L, Est GFR ( Amer) 54 L, Glucose 138 H, Calcium 8.3 L, Procalcitonin 1.20 07/13/21 05:50: Vancomycin Trough 31.2 H I & O for Last 24 hours: Intake & Output 07/10/21 07/11/21 07/12/21 07/13/21 23:59 23:59 23:59 23:59 Intake Total 0 / 0 772 / 772 1250 / 1250 0 / 0 Output Total 500 / 500 1250 / 2050 1250 / 1250 100 / 100 Balance -500 / -500 -478 / -1278 0 / 0 -100 / -100 Weight 113 kg 113.8 kg 114 kg 118.5 kg Microbiology Reports for the Last 24 Hours: Microbiology 07/07/21 18:55 Blood Blood Culture - Final NO GROWTH AFTER 5 DAYS 07/07/21 18:55 Blood Blood Culture - Final NO GROWTH AFTER 5 DAYS 07/08/21 09:27 Sputum - Expectorated Sputum Gram Stain - Final 07/08/21 09:27 Sputum - Expectorated Sputum Sputum Culture - Final Yeast Assessment and Plan (1) Aspiration pneumonia Status: Acute Qualifiers: Aspiration pneumonia type: unspecified Laterality: right Lung location: middle lobe of lung Qualified Code(s): J69.0 - Pneumonitis due to inhalation of food and vomit Category: Medical Code(s): J69.0 - Pneumonitis due to inhalation of food and vomit (2) Respiratory failure with hypoxia Status: Acute Qualifiers: Chronicity: acute Qualified Code(s): J96.01 - Acute respiratory failure with hypoxia Category: Medical Code(s): J96.91 - Respiratory failure, unspecified with hypoxia (3) Pulmonary embolism Status: Acute Category: Medical Code(s): I26.99 - Other pulmonary embolism without acute cor pulmonale (4) Developmental disorder Status: Chronic Category: Medical Code(s): F89 - Unspecified disorder of psychological development (5) Schizophrenic disorder Status: Chronic Category: Medical Code(s): F20.9 - Schizophrenia, unspecified (6) Type 2 diabetes mellitu
[2021-07-13 16:18] LABS: POC Glucose,Bedside 174 (70-110)
--- NOTE | 2021-07-13 17:17 | PC.NURSE ---
Pt has yelled out most of this shift. Pt gets louder during q2h turns as if he is in pain. When this RN asks if he is in pain he will nod his head up and down. Pt has been medicated per SEP x2 d/t this. Pt has required 5L NC d/t o2 sats dropping to 78% and maintaining. Pt remains edematous t/o his body, w/ 2+ noted to BLE and BUE. Rhonchi noted in all lung cross per auscultation. Pt has required q2h oral care d/t mouth breathing and excessively dry mouth. Pt has had x1 nosebleed this shift. Pt has had poor UOP, <200mL this entire shift. Urine is clear, dark yellow w/ a strong odor. No other acute changes.
--- NOTE | 2021-07-13 22:01 | PC.NURSE ---
No care needed
[2021-07-14] VITALS: BP 95/58; PULSE 101; RESP 22; TEMP 36.9; O2SAT 93
[2021-07-14 04:00] VITALS: BP 87/54; PULSE 99; RESP 22; TEMP 36.8; O2SAT 94
[2021-07-14 04:42] VITALS: BMI 32.5
--- NOTE | 2021-07-14 05:54 | PC.NURSE ---
Pt has had no acute changes overnight. Pt still has poor urine output (see I&O). Pt has not been vocal or moaning. When asked pt if he is in pain - pt shakes head no. Pt is on O2 at 5 L via NC. Lovenox d/c per MD d/t bleeding. Oral care provided q2hrs. Dried blood in mouth, nose, and at IV sites noted. Pt is NPO at this time. Call light in reach.
[2021-07-14 07:15] LABS: Hemoglobin 7.2 g/dL (14.1-18.0)
[2021-07-14 07:19] LABS: Potassium 4.3 mmoL/L (3.5-5.1)
[2021-07-14 07:22] LABS: Anion Gap 17.3 mEq/L (5-15); Basophils # 0.4 K/mm3 (0-0.2); Basophils % 1.4 % (0.1-2.0); Blood Urea Nitrogen 39 mg/dl (9-20); Calcium 8.1 mg/dl (8.4-10.2); Carbon Dioxide 12 mmol/L (22.0-30.0); Creatinine Clearance Estimated 69 mL/min (50-200); Eosinophils # 0.1 K/mm3 (0.0-0.4); Eosinophils % 0.2 % (0.1-12.0); Estimated Glomerular Filt Rate 37 ml/min (>60); GFR (African American) 44 ML/MIN (>60); Glucose 106 mg/dl (74-100); Hematocrit 24.2 % (42.0-52.0); Lymphocytes # 1.7 K/mm3 (0.7-4.5); Lymphocytes % 6.3 % (10-50); Mean Corpuscular HGB Conc 29.9 g/dL (31.8-35.4); Mean Corpuscular Hemoglobin 30.2 pg (27.0-31.2); Mean Corpuscular Volume 100.8 fl (80-94); Monocytes % 3.6 % (1.7-9.3); Neutrophils % 88.6 % (37.0-80.0); Platelet Count 269 K/mm3 (142-424); Red Cell Distribution Width 19.5 % (11.5-17.5)
[2021-07-14 07:30] LABS: MANUAL DIFFERENTIAL MANUAL DIFFERENTIAL (MANUAL DIFF)
[2021-07-14 07:31] LABS: Sodium 155 mmol/L (136-145)
[2021-07-14 07:32] LABS: Chloride 130 mmol/L (98-107)
[2021-07-14 08:00] VITALS: BP 102/41; PULSE 63; RESP 21; TEMP 36.5; O2SAT 92
--- NOTE | 2021-07-14 08:04 | HMH.ACPN2 ---
Internal Medicine - PN: Subj *Date: 07/14/21 *Time: 08:04 Interval history: Patient has continued to decline over the last 24 hours. Patient required supplemental oxygen to maintain O2 sats in the low 90s. All anticoagulant had to be discontinued due to persistent bleeding and patient. Patient has become increasingly edematous. Exam Vital signs and Labs for Last 24 Hours: Temp Pulse Resp BP Pulse Ox 98.2 F 99 H 22 87/54 L 94 L 07/14/21 04:00 07/14/21 04:00 07/14/21 04:00 07/14/21 04:00 07/14/21 04:00 Laboratory Results - last 24 hr 07/12/21 19:15: Crossmatch (AHG) See Detail 07/13/21 05:50: Vancomycin Trough 31.2 H 07/13/21 16:11: POC Glucose 174 H 07/14/21 06:50: WBC 27.0 H*, RBC 2.40 L, Hgb 7.2 L, Hct 24.2 L, MCV 100.8 H, MCH 30.2, MCHC 29.9 L, RDW 19.5 H, Plt Count 269, MPV 11.0 H, Neut % (Auto) 88.6 H, Lymph % (Auto) 6.3 L, [place] % (Auto) 3.6, Eos % (Auto) 0.2, Baso % (Auto) 1.4, Neut # (Auto) 24.0 H, Lymph # (Auto) 1.7, [place] # (Auto) 1.0, Eos # (Auto) 0.1, Baso # (Auto) 0.4 H 07/14/21 06:50: Sodium 155 H*, Potassium 4.3 D, Chloride 130 H, Carbon Dioxide 12 L, Anion Gap 17.3 H, BUN 39 H, Creatinine 1.90 H, Estimated Creat Clear 69, Estimated GFR 37 L, Est GFR ( Amer) 44 L, Glucose 106 H, Calcium 8.1 L I & O for Last 24 hours: Intake & Output 07/11/21 07/12/21 07/13/21 07/14/21 11:59 11:59 11:59 11:59 Intake Total 0 / 0 1772 / 1772 250 / 250 1100 / 1100 Output Total 1550 / 1550 800 / 800 550 / 550 175 / 175 Balance -1550 / -1550 972 / 972 -300 / -300 925 / 925 Weight 250 lb 14.177 oz 251 lb 5.231 oz 261 lb 3.964 oz 253 lb 8.505 oz Narrative: Patient is resting in bed. Noted increased respiratory rate. Patient does not respond to verbal stimulus by me this morning. He was interactive with nursing staff overnight. Oropharynx is dry and lined with blood. Lungs have bilateral rhonchi more prominent on the left. Heart has regular rate and rhythm. Abdomen is obese. Extremities are edematous with primarily subcutaneous edema in the upper extremities. There are multiple bruises from prior use of anticoagulant. Assessment and Plan (1) Aspiration pneumonia Status: Acute Qualifiers: Aspiration pneumonia type: unspecified Laterality: right Lung location: middle lobe of lung Qualified Code(s): J69.0 - Pneumonitis due to inhalation of food and vomit Category: Medical Code(s): J69.0 - Pneumonitis due to inhalation of food and vomit (2) Respiratory failure with hypoxia Status: Acute Qualifiers: Chronicity: acute Qualified Code(s): J96.01 - Acute respiratory failure with hypoxia Category: Medical Code(s): J96.91 - Respiratory failure, unspecified with hypoxia (3) Pulmonary embolism Status: Acute Category: Medical Code(s): I26.99 - Other pulmonary embolism without acute cor pulmonale (4) Developmental disorder Status: Chronic Category: Medical Code(s): F89 - Unspecified disorder of psychological development (5) Schizophrenic disorder Status: Chronic Category: Medical Code(s): F20.9 - Schizophrenia, unspecified (6) Type 2 diabetes mellitus Status: Chronic Qualifiers: Diabetes mellitus residential insulin use: without residential use Category: Medical Code(s): E11.9 - Type 2 diabetes mellitus without complications (7) Dysphagia causing pulmonary aspiration with swallowing Status: Suspected Category: Medical Code(s): R13.19 - Other dysphagia (8) Epistaxis Status: Acute Category: Medical Code(s): R04.0 - Epistaxis (9) Upper GI bleed Status: Suspected Category: Medical Code(s): K92.2 - Gastrointestinal hemorrhage, unspecified (10) Acute kidney injury Status: Acute Category: Medical Code(s): N17.9 - Acute kidney failure, unspecified - Assessment and plan all Dx Assessment and Plan for all problems:: Patient continues to decline from multiple organ system failure (worsening left lower lobe pneumoni
[2021-07-14 08:09] LABS: Vancomycin,Trough 25.5 ug/mL (5.0-10.0)
--- NOTE | 2021-07-14 08:24 | HMH.ACPN2 ---
Internal Medicine - PN: Subj *Date: 07/14/21 *Time: 08:24 Interval history: I was asked by patient's primary care physician to provide a second opinion regarding patient's ongoing care/prognosis. I reviewed patient's H&P/history/etc. Examined patient in the hospital room. Exam Vital signs and Labs for Last 24 Hours: Temp Pulse Resp BP Pulse Ox 98.2 F 99 H 22 87/54 L 94 L 07/14/21 04:00 07/14/21 04:00 07/14/21 04:00 07/14/21 04:00 07/14/21 04:00 Laboratory Results - last 24 hr 07/12/21 19:15: Crossmatch (AHG) See Detail 07/13/21 16:11: POC Glucose 174 H 07/14/21 06:50: Vancomycin Trough 25.5 H 07/14/21 06:50: WBC 27.0 H*, RBC 2.40 L, Hgb 7.2 L, Hct 24.2 L, MCV 100.8 H, MCH 30.2, MCHC 29.9 L, RDW 19.5 H, Plt Count 269, MPV 11.0 H, Neut % (Auto) 88.6 H, Lymph % (Auto) 6.3 L, [place] % (Auto) 3.6, Eos % (Auto) 0.2, Baso % (Auto) 1.4, Neut # (Auto) 24.0 H, Lymph # (Auto) 1.7, [place] # (Auto) 1.0, Eos # (Auto) 0.1, Baso # (Auto) 0.4 H 07/14/21 06:50: Sodium 155 H*, Potassium 4.3 D, Chloride 130 H, Carbon Dioxide 12 L, Anion Gap 17.3 H, BUN 39 H, Creatinine 1.90 H, Estimated Creat Clear 69, Estimated GFR 37 L, Est GFR ( Amer) 44 L, Glucose 106 H, Calcium 8.1 L I & O for Last 24 hours: Intake & Output 07/11/21 07/12/21 07/13/21 07/14/21 11:59 11:59 11:59 11:59 Intake Total 0 / 0 1772 / 1772 250 / 250 1100 / 1100 Output Total 1550 / 1550 800 / 800 550 / 550 175 / 175 Balance -1550 / -1550 972 / 972 -300 / -300 925 / 925 Weight 250 lb 14.177 oz 251 lb 5.231 oz 261 lb 3.964 oz 253 lb 8.505 oz Narrative: Patient is nonresponsive, obtunded, responsive to very vigorous tactile stimuli. Significant agonal breathing. Poor tissue perfusion. Poor urine output. Lungs with bibasilar rhonchi. Heart rate regular with occasional ectopic beats. Abdomen soft, poor skin turgor. No tenderness. Neurologic exam significant for obtunded status with essentially nonresponsive status Assessment and Plan (1) Aspiration pneumonia Status: Acute Qualifiers: Aspiration pneumonia type: unspecified Laterality: right Lung location: middle lobe of lung Qualified Code(s): J69.0 - Pneumonitis due to inhalation of food and vomit Category: Medical Code(s): J69.0 - Pneumonitis due to inhalation of food and vomit (2) Respiratory failure with hypoxia Status: Acute Qualifiers: Chronicity: acute Qualified Code(s): J96.01 - Acute respiratory failure with hypoxia Category: Medical Code(s): J96.91 - Respiratory failure, unspecified with hypoxia (3) Pulmonary embolism Status: Acute Category: Medical Code(s): I26.99 - Other pulmonary embolism without acute cor pulmonale (4) Developmental disorder Status: Chronic Category: Medical Code(s): F89 - Unspecified disorder of psychological development (5) Schizophrenic disorder Status: Chronic Category: Medical Code(s): F20.9 - Schizophrenia, unspecified (6) Type 2 diabetes mellitus Status: Chronic Qualifiers: Diabetes mellitus snf insulin use: without salvage determiner use Category: Medical Code(s): E11.9 - Type 2 diabetes mellitus without complications (7) Dysphagia causing pulmonary aspiration with swallowing Status: Suspected Category: Medical Code(s): R13.19 - Other dysphagia (8) Epistaxis Status: Acute Category: Medical Code(s): R04.0 - Epistaxis (9) Upper GI bleed Status: Suspected Category: Medical Code(s): K92.2 - Gastrointestinal hemorrhage, unspecified (10) Acute kidney injury Status: Acute Category: Medical Code(s): N17.9 - Acute kidney failure, unspecified - Assessment and plan all Dx Assessment and Plan for all problems:: Patient has significant evidence of multiorgan failure. Given his other medical comorbidities aggressive escalation of care including ventilator support, pressor support and engaging CPR/defibrillation if asystole or lethal cardiac arrhythmia occurs w
[2021-07-14 08:45] LABS: Eosinophils % 1 % (0-3); Lymphocytes % 9 % (10-50); Monocytes % 4 % (2-9); Neutrophils % 81 % (42-76); Nucleated Red Blood Cells 7; Total Cells Counted 100
[2021-07-14 08:46] LABS: Corrected White Blood Count 25.2 K/mm3 (4.8-10.8)
[2021-07-14 08:49] LABS: Hypochromasia 2+; Platelet Estimate Normal
[2021-07-14 08:50] LABS: Anisocytosis 2+; Macrocytosis 1+
[2021-07-14 12:00] VITALS: BP 78/49; PULSE 100; RESP 24; TEMP 36.4; O2SAT 90
[2021-07-14 16:00] VITALS: BP 47/27; PULSE 75; RESP 14; O2SAT 84
--- NOTE | 2021-07-14 19:53 | P.PN_ITS ---
Acute Rapid Response Note - Subjective Date Responded: 07/14/21 Time Responded: 15:45 Provider Note: I responded to a CODE BLUE on the second floor with the ED team. They were ongoing chest compressions when I arrived and patient was pulseless and being bagged by the respiratory therapist. Patient's initial rhythm was asystole. Patient had been coding for approximately minutes prior to my arrival. Patient was given a dose of epinephrine. I obtained the additional history that patient has been critically ill and his primary team had made the decision to return to hospice/palliative care today due to unsurvivable multiple organ failure. The primary team was in the process of obtaining guardianship from the state. Continue to be pulseless, asystole. At this point continued resuscitation was deemed medically futile. Rest of the rapid response team agreed. Time of was called at 1556 - Objective Findings: Vital Signs - Last 4 Hours Temperature 97.5 F L 07/14/21 12:00 Temperature Source Axillary 07/14/21 12:00 Pulse Rate 75 07/14/21 16:00 Respiratory Rate 14 07/14/21 16:00 TAR Vitals Timing Completion Vitals 07/12/21 23:10 Blood Pressure 47/27 L 07/14/21 16:00 Blood Pressure Mean 33 07/14/21 16:00 Blood Pressure Source Automatic Cuff 07/14/21 16:00 Blood Pressure Position Supine 07/14/21 16:00 02 Sat by Pulse Oximetry 84 L 07/14/21 16:00 Oxygen Delivery Method 07/14/21 16:00 Oxygen Flow Rate (LPM) 6 07/14/21 16:00 Lab Results for Past 12 Hours 07/14/21 06:50: Corrected WBC 25.2 H*, Total Counted 100, Neutrophils % (Manual) 81 H, Band Neutrophils % 5.0, Lymphocytes % (Manual) 9 L, Monocytes % (Manual) 4, Eosinophils % (Manual) 1, Nucleated RBCs 7, Platelet Estimate Normal, Hypochromasia 2+, Anisocytosis 2+, Macrocytosis 1+ 07/14/21 06:50: Vancomycin Trough 25.5 H 07/12/21 19:15: Blood Type O Positive, Antibody Screen Negative, Crossmatch (AHG) See Detail My Orders Category Date Time Status EPINEPHrine [EPINEPHrine 0.1mg/mL 10mL syringe] Med 07/14/21 15:55 Disco ntinued 1 mg IV ONCE ONE Notify Anc Dept of Code Blue ONCE Y 07/14/21 16:15 Ordered Rapid Response Exam - Eye Eye exam: Present: other (Fixed dilated pupils ) - Chest Chest inspection: Present: other (No chest rise ) - Respiratory Respiratory exam: Present: other (No spontaneous breath sounds ) - Cardiovascular Cardiovascular exam: Present: other (Pulseless) - Abdominal Exam Abdominal exam: Present: soft, distention - Neurological Exam Neurological exam: Present: other (GCS 3) - Skin Skin exam: Present: pallor, mottled RR Procedures/Assess/Plan - Assessment and plan all Dx Assessment and Plan for all problems:: CODE BLUE multiple rounds of chest compressions performed, 1 dose of epinephrine given. Patient remained in asystole. Decision made to resuscitation because it was deemed medically futile.
--- NOTE | 2021-07-16 16:55 | [facility].DCSUM ---
General - General Admission date:: 07/07/21 Discharge date: 07/14/21 HPI HPI: 60-year-old male with recent hospitalization at this facility for aspiration pneumonia and was discharged on the return to the facility yesterday afternoon after he was found hypoxic at his residence. [place] [facility] [place] Patient had eaten 25% of his meals that day and at around 4 PM was found in his room pale, weak, looking sick, and hypoxic with O2 sat of 83% on room air. Patient was sent to the emergency department. Patient underwent an work-up in the emergency department and initially was hypothermic. Bear hugger was used and patient's temperature responded appropriately. He was started on IV fluids for hypotension. Patient had audible rhonchi and concern remained for worsening pneumonia. Patient was physically resistant to application of BiPAP or Vapotherm and ultimately was placed on simple nasal cannula at 15 L/min which has maintained his O2 sats. This morning the patient asks for water. He denies pain. Hospital Course Hospital Course: Patient was admitted for new hypoxia with initial suspicion of recurrent aspiration. CTA of the chest was performed the day after admission which revealed a pulmonary embolism in the right lower lobe. Patient was started on Lovenox subcutaneously 1 mg/kg subcu every 12 hours. Patient was continued on Zosyn for his aspiration pneumonia. White count keith gradually each day and vancomycin was added to provide MRSA coverage. Patient's white count did not change although clinically he showed initial signs of improvement and was weaned from oxygen. Speech therapy was consulted and recommended patient remain n.p.o. due to aspiration. Even after patient showed clinical improvement repeat swallowing evaluation was unchanged. Patient was a love of the [facility]. Patient himself declined G-tube and also declined an NG tube. He did understand the purpose of the feeding tube. He did understand that without some source of nutrition he would pass away. He continued to refuse feeding tube. We sought approval from the state to proceed with PEG tube. Patient remained n.p.o. and on IV fluids. Word had been received that an order to proceed with PEG tube would likely be approved and an attempt was made at an NG tube. Patient removed the NG tube. NG tube also cause nosebleed. While awaiting for approval of PEG tube patient developed multiple organ system failure that ultimately led to patient passing away on July 14. By this time goals of care had turned to comfort due to the patient's declining health. Hospitalization was complicated by recurring epistaxis. Patient's nasal mucosa had become dry and cracked from the supplemental oxygen and this along with use of Lovenox led to nosebleeds. Patient had nasal packing placed multiple times and also had a Rhino Rocket used to stop bleeding. While the Rhino Rocket was successful at stopping bleeding temporarily the patient removed this as well. Patient developed acute kidney injury as part of his multiple organ system failure along with progression of pneumonia. While patient initially improved clinically patient's white blood cell count nor imaging did not ever show improvement in in his pneumonia. As the patient was a love of the [facility] state approval would also be required to make the patient a DO NOT RESUSCITATE. As we were dealing with a holiday weekend and the patient's health began to decline goals of care became to keep the patient comfortable. This was accomplished as the patient reached end-of-life. He was given morphine for pain and respiratory distress. As patient was a full code a code was called when the patient began to decline but aggressive measures were deemed futile and patient was allowed to pass. Objective Vital signs: Temp Pulse Resp BP Pulse Ox 97.5 F L 75 14 47/27 L 84 L 07/14/21 12:0
== END 2021-07-14 17:40 | disposition expired | DRG 177 ==
LOC: ER 20:22 → 2ND 20:52
PROVIDERS: Emergency Medicine; Internal Medicine Adolescent Medicine; Admitting Provider Family Medicine; Emergency Provider Emergency Medicine; Visit Provider Family Medicine
DX: J69.0 Pneumonitis due to inhalation of food and vomit (principal); J96.01 Acute respiratory failure with hypoxia; I26.99 Other pulmonary embolism without acute cor pulmonale; A41.9 Sepsis, unspecified organism; R65.21 Severe sepsis with septic shock; K92.2 Gastrointestinal hemorrhage, unspecified; N17.9 Acute kidney failure, unspecified; F20.9 Schizophrenia, unspecified; F89 Unspecified disorder of psychological development; Z51.5 Encounter for palliative care; Z20.822 Contact with and (suspected) exposure to COVID-19; I11.0 Hypertensive heart disease with heart failure; I50.9 Heart failure, unspecified; E78.00 Pure hypercholesterolemia, unspecified; Z66 Do not resuscitate; E11.9 Type 2 diabetes mellitus without complications; R13.10 Dysphagia, unspecified; R04.0 Epistaxis; D64.9 Anemia, unspecified; I95.9 Hypotension, unspecified; R68.0 Hypothermia, not associated with low environmental temperature
CPT/HCPCS: 36415; 70371; 71045; 71275; 80048; 80053; 80164; 80202; 81001; 82803; 82962; 83605; 84145; 85007; 85014; 85018; 85025; 86850; 87040; 87070; 87077; 87205; 87506; 92526; 92610; 92611; 93005; 94760; 94761; 96365; 96367; 96375; 96376; 99284; C9803; J2543; P9016; Q9967; U0003; U0005